=== PATIENT | female | born 1935 | race Caucasian/White ===

== ENCOUNTER 2018-01-22 17:26 | Inpatient (IN) | payer MEDICARE ==
[2018-01-22] MEDS ORDERED: Albuterol/Ipratropium NEB.SOL* Albuterol 2.5 MG/Ipratropium 0.5 MG 3 ML INH ONE (17:41)
[2018-01-22] MEDS ORDERED: Dexamethasone IV* 4 MG/ML 5 ML VIAL (20 MG) IVPB ONE (17:42)
[2018-01-22] MEDS ORDERED: Albuterol/Ipratropium NEB.SOL* Albuterol 2.5 MG/Ipratropium 0.5 MG 3 ML ONE (17:42)
[2018-01-22] MEDS ORDERED: Azithromycin IV(*) 500 MG in NS 0.9% 250 ML* 250 ML IVPB ONE (17:43)
[2018-01-22] MEDS ORDERED: Magnesium Sulfate 2 GM IV* 2 GM/50 ML BAG IVPB ONE (17:44)
[2018-01-22] MEDS ORDERED: NS 0.9% 250 ML* 250 ML ONE (17:47)
[2018-01-22 18:04] LABS: ABS Basophils 0 10^3/ul (0-0.2); ABS Eosinophils 0.9 10^3/ul (0-0.6); ABS Lymphocytes 1.1 10^3/ul (1.0-4.8); ABS Monocytes 0.6 10^3/ul (0-0.8); ABS Neutrophils 3.5 10^3/ul (1.5-7.7); ABS Nucleated RBC 0 10^3/ul; Eosinophil % 14.1 %; Hematocrit 38 % (35-47); Hemoglobin 12.9 g/dl (12.0-16.0); Lymphocyte % 18.4 %; Mean Corpuscular HGB Conc 34 g/dl (31-36); Mean Corpuscular Hemoglobin 32 pg (27-31); Mean Corpuscular Volume 94 fL (80-97); Mean Platelet Volume 9.2 fL (7.4-10.4); Nucleated Red Blood Cells % 0.1; Platelet Count 143 10^3/ul (150-450); Red Blood Count 4.06 10^6/ul (4.00-5.40); Red Cell Distribution Width 12 % (10.5-15); White Blood Count 6.2 10^3/ul (3.5-10.8)
[2018-01-22 18:12] LABS: INR 0.96 (0.77-1.02)
[2018-01-22 18:21] LABS: EGFR Non-African American 42.7 (>60)
[2018-01-22] MEDS ORDERED: NS 0.9% 1000 ML* 1,000 ML IV ONE (18:22)
[2018-01-22] MEDS ORDERED: Azithromycin IV* 500 MG ADVAN VIAL/BAG IVPB ONE (19:22)
[2018-01-22] MEDS ORDERED: Albuterol 2.5 MG/3 ML NEB.SOL* (0.083%) INH PRN (19:48)
[2018-01-22] MEDS ORDERED: Dextrose 50% Syringe 50 ML* 25 GM/50 ML SYRINGE IV PUSH PRN (19:52)
[2018-01-22] MEDS ORDERED: hydrALAZINE IV* 20 MG/ML VIAL IV SLOW PU PRN (19:53)
--- NOTE | 2018-01-22 20:31 | ED ---
Shortness of Breath - HPI Summary HPI Summary: An 82 y/o female presents to [facility] with a chief complaint of SOB on . She has been using O2 to breathe and also c/o a non-productive cough. She denies fevers, CP or a Hx of CHF. She claims to be a non-smoker and has a Hx of back surgeries. 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 Onset/Duration: Sudden Onset, Lasting Hours, Still Present Current Severity: Severe Dyspnea At: Rest Aggrevating Factors: Nothing Alleviating Factors: Nothing Associated Signs & Symptoms: Cough (Nonproductive) - Allergy/Home Medications Allergies/Adverse Reactions: Allergies Allergy/AdvReac Type Severity Reaction Status Date / Time codeine Allergy Unknown Verified 01/22/18 19:35 Reaction Details Home Medications: Home Medications Albuterol HFA INHALER* [Ventolin HFA Inhaler*] 2 puff INH Q4H PRN 01/22/18 [ History Confirmed 01/22/18] Albuterol Sulfate 1.25 mg INH QID PRN 01/22/18 [History Confirmed 01/22/18] Levothyroxine TAB* [Synthroid TAB*] 100 mcg PO DAILY 01/22/18 [History Confirmed 01/22/18] LoraTADine TAB(NF) [Claritin 10 MG TAB(NF)] 10 mg PO DAILY 01/22/18 [History Confirmed 01/22/18] Losartan TAB* [Cozaar TAB*] 25 mg PO DAILY 01/22/18 [History Confirmed 01/22/18] glipiZIDE TAB* [Glucotrol TAB*] 10 mg PO BID 01/22/18 [History Confirmed ] metFORMIN* [Glucophage 500 MG TAB *] 500 mg PO BID 01/22/18 [History Confirmed 01/22/18] PMH/Surg Hx/FS Hx/Imm Hx Endocrine/Hematology History: Reports: Hx Diabetes - TYPE 2- ON ORAL MEDICATION FOR, Hx Thyroid Disease - HYPOTHYROIDISM Cardiovascular History: Reports: Hx Hypertension - ON MEDICATION FOR Respiratory History: Reports: Hx Asthma - ROUTINE INHALERS FOR Comment Only: Hx Chronic Obstructive Pulmonary Disease (COPD) - unknown GI History: Reports: Hx Gastroesophageal Reflux Disease - TUMS Musculoskeletal History: Reports: Hx Arthritis - HANDS Sensory History: Reports: Hx Cataracts - BILATERAL, Hx Contacts or Glasses - GLASSES-READING Denies: 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 VAGINAL HYSTERECTOMY, [place]. 1965 LAMINECTOMY, [facility]. TONSILLECTOMY. TUBAL LIGATION. RIGHT BOTTOM BACK TOOTH EXTRACTION, OFFICE. 05/2013-CATARACT BILATERAL Hx Anesthesia Reactions: No Infectious Disease History: No Infectious Disease History: Denies: Traveled Outside the [place] in Last 30 Days - Family History Known Family History: Negative: Blood Disorder - Social History Alcohol Use: None Substance Use Type: Reports: None Smoking Status (MU): Never Smoked Tobacco Review of Systems Negative: Fever Negative: Chest Pain Positive: Shortness Of Breath, Cough All Other Systems Reviewed And Are Negative: Yes Physical Exam - Summary Physical Exam Summary: GENERAL: Patient is a well-developed and nourished F, Increased work of breathing speaking in broken phrases HEAD AND FACE: Normocephalic EYES: PERRLA, EOMI x 2. EARS: Hearing grossly intact. MOUTH: Oropharynx within normal limits. NECK: Supple, trachea is midline, no adenopathy, no JVD, no carotid bruit. CHEST: Symmetric, no tenderness at palpation LUNGS: Increased work of breathing, wheezing thoughout and retraction CVS: Regular rate and rhythm, S1 and S2 present, no murmurs or gallops appreciated. ABDOMEN: Soft, non-tender. Bowel sounds are normal. No abdominal abnormal pulsations. EXTREMITIES: Full ROM in all major joints, no edema, no cyanosis or clubbing. NEURO: Alert and oriented x 3. No acute neurological deficits. Speech is normal and follows commands. SKIN: Dry and warm Triage Information Reviewed: Yes Vital Signs On Initial Exam: Initial Vitals Temp Pulse Resp BP Pulse Ox 97.9 F 110 24 174/118 94 01/22/18 17:34 01/22/18 17:34 01/22/18 17:34 01/22/18 17:34 01/22/18 17:34 Vital Signs Reviewed: Yes Diagnostics - Vital Signs Vital Signs Temp Pulse Resp BP Pulse Ox 01/22/18 20:09 98.4 F 103 24 142/88 98 01/22/18 20:00 100 25 99 01/22/18 19:42 102 25 142/88 100 01/22/18 19:12 83 17 159/71 99 01/22/18 19:00 85 19 100 01/22/18 18:42 87 28 160/92 99 01/22/18 18:12 105 38 195/98 98 01/22/18 18:00 96 30 100 01/22/18 17:46 97 24 100 01/22/18 17:42 97 25 176/144 100 01/22/18 17:34 97.9 F 110 24 174/118 94 - Laboratory Lab Results: Lab Results 01/22/18 01/22/18 01/22/18 Range/Units 17:52 17:52 17:52 WBC 6.2 (3.5-10.8) 10^3/ul RBC 4.06 (4.00-5.40) 10^6/ul Hgb 12.9 (12.0-16.0) g/dl Hct 38 (35-47) % MCV 94 (80-97) fL MCH 32 H (27-31) pg MCHC 34 (31-36) g/dl RDW 12 (10.5-15) % Plt Count 143 L (150-450) 10^3/ul MPV 9.2 (7.4-10.4) fL Neut % (Auto) 56.8 % Lymph % (Auto) 18.4 % Garland % (Auto) 10.3 % Eos % (Auto) 14.1 % Baso % (Auto) 0.4 % Absolute Neuts (auto) 3.5 (1.5-7.7) 10^3/ul Absolute Lymphs (auto) 1.1 (1.0-4.8) 10^3/ul Absolute Monos (auto) 0.6 (0-0.8) 10^3/ul Absolute Eos (auto) 0.9 H (0-0.6) 10^3/ul Absolute Basos (auto) 0 (0-0.2) 10^3/ul Absolute Nucleated RBC 0 10^3/ul Nucleated RBC % 0.1 INR (Anticoag Therapy) 0.96 (0.77-1.02) APTT 34.0 (26.0-36.3) seconds D-Dimer, Quantitative Pending Patient Temperature ABG pH (7.35-7.45) ABG pH (Temp Correct) ABG pCO2 (35-45) mmHg ABG pCO2 (Temp Corrct ABG pO2 (80-100) mmHg ABG pO2 (Temp Correct ABG HCO3 (19-31) mmol/L ABG O2 Saturation (95-98) % ABG Base Excess (-2.0-2.0) Respiration Rate O2 Delivery Device Ventilator Type Vent Mode FiO2 Inspiratory Time PEEP Pressure Support Pressure Control EPAP IPAP BiPAP Sodium 135 (135-145) mmol/L Potassium 4.5 (3.5-5.0) mmol/L Chloride 103 (101-111) mmol/L Carbon Dioxide 24 (22-32) mmol/L Anion Gap 8 (2-11) mmol/L BUN 22 (6-24) mg/dL Creatinine 1.21 H (0.51-0.95) mg/dL Est GFR ( Amer) 51.7 (>60) Est GFR (Non-Af Amer) 42.7 (>60) BUN/Creatinine Ratio 18.2 (8-20) Glucose 197 H (70-100) mg/dL Lactic Acid (0.5-2.0) mmol/L Calcium 9.3 (8.6-10.3) mg/dL Magnesium 1.6 L (1.9-2.7) mg/dL Total Bilirubin 0.60 (0.2-1.0) mg/dL AST 29 (13-39) U/L ALT 19 (7-52) U/L Alkaline Phosphatase 118 H (34-104) U/L Troponin I 0.02 (<0.04) ng/mL B-Natriuretic Peptide (<=100) pg/mL Total Protein 6.6 (6.4-8.9) g/dL Albumin 3.7 (3.2-5.2) g/dL Globulin 2.9 (2-4) g/dL Albumin/Globulin Ratio 1.3 (1-3) Influenza A (Rapid) (Negative) Influenza B (Rapid) (Negative) 01/22/18 01/22/18 01/22/18 Range/Units 17:52 17:52 18:00 WBC (3.5-10.8) 10^3/ul RBC (4.00-5.40) 10^6/ul Hgb (12.0-16.0) g/dl Hct (35-47) % MCV (80-97) fL MCH (27-31) pg MCHC (31-36) g/dl RDW (10.5-15) % Plt Count (150-450) 10^3/ul MPV (7.4-10.4) fL Neut % (Auto) % Lymph % (Auto) % Garland % (Auto) % Eos % (Auto) % Baso % (Auto) % Absolute Neuts (auto) (1.5-7.7) 10^3/ul Absolute Lymphs (auto) (1.0-4.8) 10^3/ul Absolute Monos (auto) (0-0.8) 10^3/ul Absolute Eos (auto) (0-0.6) 10^3/ul Absolute Basos (auto) (0-0.2) 10^3/ul Absolute Nucleated RBC 10^3/ul Nucleated RBC % INR (Anticoag Therapy) (0.77-1.02) APTT (26.0-36.3) seconds D-Dimer, Quantitative Patient Temperature Not Reportable ABG pH 7.36 (7.35-7.45) ABG pH (Temp Correct) Not Reportable ABG pCO2 39 (35-45) mmHg ABG pCO2 (Temp Corrct Not Reportable ABG pO2 175 H (80-100) mmHg ABG pO2 (Temp Correct Not Reportable ABG HCO3 22.4 (19-31) mmol/L ABG O2 Saturation 99.8 H (95-98) % ABG Base Excess -3.2 L (-2.0-2.0) Respiration Rate Not Reportable O2 Delivery Device 6l nebulizer Ventilator Type Not Reportable Vent Mode Not Reportable FiO2 Not Reportable Inspiratory Time Not Reportable PEEP Not Reportable Pressure Support Not Reportable Pressure Control Not Reportable EPAP Not Reportable IPAP Not Reportable BiPAP Not Reportable Sodium (135-145) mmol/L Potassium (3.5-5.0) mmol/L Chloride (101-111) mmol/L Carbon Dioxide (22-32) mmol/L Anion Gap (2-11) mmol/L BUN (6-24) mg/dL Creatinine (0.51-0.95) mg/dL Est GFR ( Amer) (>60) Est GFR (Non-Af Amer) (>60) BUN/Creatinine Ratio (8-20) Glucose (70-100) mg/dL Lactic Acid 2.4 H* (0.5-2.0) mmol/L Calcium (8.6-10.3) mg/dL Magnesium (1.9-2.7) mg/dL Total Bilirubin (0.2-1.0) mg/dL AST (13-39) U/L ALT (7-52) U/L Alkaline Phosphatase (34-104) U/L Troponin I (<0.04) ng/mL B-Natriuretic Peptide 63 (<=100) pg/mL Total Protein (6.4-8.9) g/dL Albumin (3.2-5.2) g/dL Globulin (2-4) g/dL Albumin/Globulin Ratio (1-3) Influenza A (Rapid) (Negative) Influenza B (Rapid) (Negative) 01/22/18 Range/Units 18:27 WBC (3.5-10.8) 10^3/ul RBC (4.00-5.40) 10^6/ul Hgb (12.0-16.0) g/dl Hct (35-47) % MCV (80-97) fL MCH (27-31) pg MCHC (31-36) g/dl RDW (10.5-15) % Plt Count (150-450) 10^3/ul MPV (7.4-10.4) fL Neut % (Auto) % Lymph % (Auto) % Garland % (Auto) % Eos % (Auto) % Baso % (Auto) % Absolute Neuts (auto) (1.5-7.7) 10^3/ul Absolute Lymphs (auto) (1.0-4.8) 10^3/ul Absolute Monos (auto) (0-0.8) 10^3/ul Absolute Eos (auto) (0-0.6) 10^3/ul Absolute Basos (auto) (0-0.2) 10^3/ul Absolute Nucleated RBC 10^3/ul Nucleated RBC % INR (Anticoag Therapy) (0.77-1.02) APTT (26.0-36.3) seconds D-Dimer, Quantitative Patient Temperature ABG pH (7.35-7.45) ABG pH (Temp Correct) ABG pCO2 (35-45) mmHg ABG pCO2 (Temp Corrct ABG pO2 (80-100) mmHg ABG pO2 (Temp Correct ABG HCO3 (19-31) mmol/L ABG O2 Saturation (95-98) % ABG Base Excess (-2.0-2.0) Respiration Rate O2 Delivery Device Ventilator Type Vent Mode FiO2 Inspiratory Time PEEP Pressure Support Pressure Control EPAP IPAP BiPAP Sodium (135-145) mmol/L Potassium (3.5-5.0) mmol/L Chloride (101-111) mmol/L Carbon Dioxide (22-32) mmol/L Anion Gap (2-11) mmol/L BUN (6-24) mg/dL Creatinine (0.51-0.95) mg/dL Est GFR ( Amer) (>60) Est GFR (Non-Af Amer) (>60) BUN/Creatinine Ratio (8-20) Glucose (70-100) mg/dL Lactic Acid (0.5-2.0) mmol/L Calcium (8.6-10.3) mg/dL Magnesium (1.9-2.7) mg/dL Total Bilirubin (0.2-1.0) mg/dL AST (13-39) U/L ALT (7-52) U/L Alkaline Phosphatase (34-104) U/L Troponin I (<0.04) ng/mL B-Natriuretic Peptide (<=100) pg/mL Total Protein (6.4-8.9) g/dL Albumin (3.2-5.2) g/dL Globulin (2-4) g/dL Albumin/Globulin Ratio (1-3) Influenza A (Rapid) Negative (Negative) Influenza B (Rapid) Negative (Negative) Result Diagrams: 01/23/18 06:04 01/23/18 06:04 Lab Statement: Any lab studies that have been ordered have been reviewed, and results considered in the medical decision making process. - Radiology CXR Radiology Interpretation Completed By: ED Physician Summary of Radiographic Findings: COPD. Pending official radiology report. - EKG 19:02 Cardiac Rate: NL - 99 bpm EKG Rhythm: Sinus Rhythm Summary of EKG Findings: multiple PVCs with IVCD and LAD Course/Dx - Course Course Of Treatment: An 82 y/o female presents to [facility] with a chief complaint of SOB on . Workup is remarkable with increased work of breathing, wheezing thoughout lungs. CXR shows COPD. EKG shows NSR at 99 bpm. Lab results were done. Lactic acid was remarkable at 2.4. Patient given breathing treatments , decadron, MgSO4 and was started on BiPAP but could not tolerate and so wswitch to Vapotherm.The patient will be admitted to Dr. Durand, most likely ICU. Dx: COPD exacerbation. I discussed results with patient. The patient agrees with this plan. - Diagnoses Provider Diagnoses: COPD exacerbation - Physician Notifications Discussed Care of Patient With: Sarah Durand Time Discussed With Above Provider: 19:15 Instructed by Provider To: Admit As Inpatient - Critical Care Time Critical Care Time: 30-74 min - 30 mins Discharge - Sign-Out/Discharge Documenting (check all that apply): Patient Departure - admit - Discharge Plan Condition: Fair Disposition: ADMITTED TO [facility] - Billing Disposition and Condition Condition: FAIR Disposition: Admitted to [facility] - Attestation Statements Document Initiated by Scribe: Yes Documenting Scribe: Robert Roman Provider For Whom Luxibe is Documenting (Include Credential): Reinaldo Lopez MD Scribe Attestation: I, Robert Roman, scribed for Reinaldo Lopez MD on 01/24/18 at 0235. Scribe Documentation Reviewed: Yes Provider Attestation: The documentation as recorded by the Robert vallecillo accurately reflects the service I personally performed and the decisions made by me, Lindsey Lopez MD Status of Scribe Document: Viewed
[2018-01-22] MEDS ORDERED: cefTRIAXone(*) 1 GM in NS 0.9% 50 ML* 50 ML IVPB SCH (21:30)
[2018-01-22] MEDS: Insulin GLARGINE(*) 1 UNITS UNIT SUBCUT SCH (21:45)
[2018-01-22] MEDS: Enoxaparin(*) 40 MG/0.4 ML SYR SUBCUT SCH (21:46)
[2018-01-22] MEDS: Insulin LISPRO* 1 UNITS UNIT SUBCUT SCH (21:46)
[2018-01-22] MEDS: Albuterol/Ipratropium NEB.SOL* Albuterol 2.5 MG/Ipratropium 0.5 MG 3 ML INH SCH (23:34)
[2018-01-23] MEDS: Albuterol/Ipratropium NEB.SOL* Albuterol 2.5 MG/Ipratropium 0.5 MG 3 ML INH SCH ×2 (02:50→07:12)
[2018-01-23] MEDS: methylPREDNISolone SOD 40 MG* 1 ML VIAL IV SCH ×3 (03:17→18:09)
[2018-01-23] MEDS ORDERED: Ondansetron INJ* 2 MG/ML VIAL IV PRN (05:48)
[2018-01-23 06:23] LABS: Hematocrit 35 % (35-47); Hemoglobin 11.9 g/dl (12.0-16.0); Mean Corpuscular HGB Conc 34 g/dl (31-36); Mean Corpuscular Hemoglobin 32 pg (27-31); Mean Corpuscular Volume 94 fL (80-97); Mean Platelet Volume 9.3 fL (7.4-10.4); Platelet Count 118 10^3/ul (150-450); Red Blood Count 3.73 10^6/ul (4.00-5.40); Red Cell Distribution Width 12 % (10.5-15); White Blood Count 2.9 10^3/ul (3.5-10.8)
[2018-01-23] MEDS: Levothyroxine TAB* 100 MCG TAB PO SCH (06:32)
[2018-01-23] MEDS ORDERED: NS 0.9% 1000 ML* 1,000 ML IV ONE (06:53)
--- NOTE | 2018-01-23 07:15 | HP ---
HISTORY AND PHYSICAL: DATE OF ADMISSION: 01/22/18 PRIMARY CARE PROVIDER: Dr. Anderson CHIEF COMPLAINT: Shortness of breath. HISTORY OF PRESENT ILLNESS: Ms. Price is an 82-year-old female who states that over the last 2 to 3 months, she has had worsening shortness of breath. She then states over the last couple weeks, she has had dramatic worsening of her shortness of breath. She states that she feels severely short of b reath and exhausted with any minimal exertion. The patient was going to try to get in to see her [facility] provider tomorrow; however, did not feel that she could make it and therefore presented to the emergency room for evaluation. Patient in the ER, was trialed on BiPAP which she did not tolerate. She is dyspneic and unable to co mplete full sentences despite being on 30 L of Vapotherm. Patient denies any significant cough or spu lucila production at this time; however, states that a few weeks ago, she did have a respiratory infecti on where she was coughing up sputum. She has had no recent fevers or chills. She has been using her albuterol nebulizers 3 times a day and albuterol inhaler at bedtime. Despite this, she continued to have progression of symptoms. In fact, she states the last time she used her nebs and inhaler, they did not help as much as they had previously. She denies any sick contacts. In general, the patient is a poor historian and this was all that was able to be obtained from her. PAST MEDICAL HISTORY: 1. COPD, despite no personal smoking history. 2. Asthma. 3. Type 2 diabetes. 4. Hypertension. 5. Hypothyroidism. PAST SURGICAL HISTORY: 1. Right carpal tunnel release. 2. Bilateral cataract extractions. 3. Tonsillectomy. 4. Laminectomy. 5. . 6. Hysterectomy. MEDICATIONS: 1. Albuterol 2 puffs inhaled q.4 hours p.r.n. shortness of breath. 2. Albuterol 1 neb inhaled 4 times a day p.r.n. shortness of breath. 3. Glipizide 10 mg p.o. b.i.d. 4. Loratadine 10 mg p.o. daily. 5. Metformin 500 mg p.o. b.i.d. 6. Levothyroxine 100 mcg p.o. daily. 7. Losartan 25 mg p.o. daily. ALLERGIES: CODEINE. FAMILY HISTORY: Mom in the 90s of old age, dad at the age of 67, he had COPD and diabetes. SOCIAL HISTORY: Patient is a lifelong nonsmoker, states she was a nonsmoker her entire life. She den ies any alcohol use. She is a retired nurse. She is . She has one child. She indicates that her son Brandon will be her healthcare proxy. REVIEW OF SYSTEMS: Patient denies any recent fevers or chills. She states her appetite has been poo r recently. She has noticed weight loss over the last 2 to 3 weeks that is unintentional, due to dec reased appetite. She does admit to chest pain with coughing. She thinks that her lower extremities may be slightly swollen. She admits to occasional cough but no significant sputum production. She ad mits to shortness of breath as above. No nausea, vomiting, abdominal pain. She does admit to consti pation. No hematochezia, no hematuria, no dysuria, no focal weakness or sensory losses, no sudden ch anges in vision. No dysphagia, no joint pains or muscle pains out of the ordinary, no rashes, no anx iety or depression. PHYSICAL EXAMINATION GENERAL: The patient is a well-developed, elderly female, sitting straight upright on the stretcher, dyspneic and in moderate respiratory distress. VITAL SIGNS: Blood pressure 159/71, pulse 102, respirations 17, temp 97.9, O2 sat 99% on 30 L of 50% FiO2 via Vapotherm. HEENT: Pupils are equal and round. There is evidence of prior cataract extraction. Extraocular mus cles intact. Oropharynx is clear. Oral mucosa is moist. NECK: There is no submandibular, cervical or supraclavicular adenopathy. Thyroid is not enlarged. N o thyroid nodules are noted. PULMONARY: Breath sounds are diminished in all lung bob. There is diffuse wheezing heard through out. As above, patient is quite dyspneic and unable to complete a full sentence without pausing betw een words. CARDIAC: Normal S1, S2. Heart rate is tachycardic but regular. There is minimal bilateral lower ex tremity pitting edema. ABDOMEN: Bowel sounds present. Abdomen is soft, nontender, nondistended. MUSCULOSKELETAL: There is no cyanosis or clubbing of the digits. There is full active range of mariah on of all 4 extremities. NEUROLOGIC: Cranial nerves II through XII are grossly intact. Sensation is intact to light touch th roughout. Strength is 5/5 and symmetric in both upper and lower extremities bilaterally. SKIN: Warm and dry. There are no rashes. PSYCH: The patient is alert. She is oriented x3. Affect appears appropriate. DIAGNOSTIC STUDIES/LAB DATA: WBC 6.2, hemoglobin 12.9, hematocrit 38, platelets 143, INR 0.96, sodi um 135, potassium 4.5, chloride 103, CO2 24, BUN 22, creatinine 1.21, glucose 197, lactic acid 2.4, c alcium 9.3, magnesium 1.6, bilirubin 0.6, AST 29, ALT 19, alkaline phosphatase 118, troponin 0.02, BN P 63, albumin 3.7, influenza A and B negative. ABG 7.36/39/175. EKG reveals sinus tachycardia with frequent PVC, no acute ST-T wave abnormalities. Chest x-ray to my interpretation reveals a possible very small infiltrate at the right base. ASSESSMENT AND PLAN: Ms. Price is an 82-year-old female who has a history of COPD, diabetes, hypert ension, hypothyroidism who presents to the emergency room with complaints of several months worth of shortness of breath which acutely worsened over the last couple weeks but even more so on the day of admission, now is being admitted for a probable COPD exacerbation with moderate respiratory distress. 1. Chronic obstructive pulmonary disease exacerbation with moderate respiratory distress. At this p oint, the patient is feeling somewhat improved on Vapotherm. It has helped her work of breathing slig htly. She was unable to tolerate BiPAP. The patient does have acceptable oxygen saturations and has no evidence acute hypoxic respiratory failure at this point. I questioned why she may have decompens ated today. The patient received azithromycin in the emergency room. I will add ceftriaxone to this and continue both of these on a daily basis. Patient will have standing DuoNeb treatments every 4 h ours and p.r.n. albuterol every 2 hours. She will also be started on Solu-Medrol 40 mg IV q.8 hours. The patient does accept intubation if necessary. My hope is that with a little more time, her resp iratory status will stabilize and she will be less dyspneic at rest. The patient has never been forma sen diagnosed with COPD; however she states her primary gave her this diagnosis. Ultimately when she recovers from this illness, PFT testing would be useful to determine if she truly does have COPD. P atient due to her marked worsening of shortness of breath today despite having progressive shortness of breath over the last 1 week, could potentially have a PE, she does not have any significant lower extremity swelling but there is trace swelling. I will add a [facility] If this is elevated, we will send her for a CTA of the chest. 2. Lactic acidosis. I suspect the lactic acidosis is secondary to the work of breathing. A followu p lactic acid level will be obtained at 2100. She did receive IV fluids in the emergency room. I am not going to continue these at this time as she does have slight lower extremity edema. She will be eating and drinking without restriction. 3. Type 2 diabetes. I am going to hold patient's metformin and glipizide for now. I do suspect her sugars will be likely markedly elevated due to the steroid use. I am going to start Lantus 5 units s ubcutaneous at bedtime as well as a lispro sliding scale a.c./h.s. until her oral medications are add ed back. Lantus can be utilized and the dose should be increased as needed. 4. Hypertension. Patient was markedly hypertensive early on in her ER stay. Her blood pressures jimenez ve improved. I have added p.r.n. hydralazine for systolic blood pressures greater than 180. She eb l otherwise continue on her usual dose of losartan. 5. Hypothyroidism. The patient will continue on her usual dose of Synthroid. 6. DVT prophylaxis. According to the Adult Thrombosis Prophylaxis Risk Factor Assessment Guide, the patient has a total risk factor score of 5, making her the highest risk. Lovenox 40 units subcutane ous daily will be utilized as DVT prophylaxis. 3. Code status is full. TIME SPENT: 65 minutes was spent admitting this patient. [id number]/[facility] #: [id number]
[2018-01-23] MEDS ORDERED: Morphine VIAL* 4 MG/ML VIAL (1 ml vial) ONE (08:40)
[2018-01-23] MEDS ORDERED: Acetaminophen TAB* 325 MG PO PRN (08:47)
[2018-01-23] MEDS: Losartan TAB* 25 MG PO SCH (09:03)
[2018-01-23] MEDS: Insulin LISPRO* 1 UNITS UNIT SUBCUT SCH ×4 (09:04→21:17)
[2018-01-23] MEDS: NS 0.9% 1000 ML* 1,000 ML IV SCH ×2 (09:05→18:15)
[2018-01-23] MEDS ORDERED: Morphine VIAL* 4 MG/ML VIAL (1 ml vial) IV PRN (09:15)
[2018-01-23] MEDS ORDERED: Albuterol 2.5 MG/3 ML NEB.SOL* (0.083%) INH SCH (10:00)
[2018-01-23] MEDS ORDERED: Spiriva Inhaler DEVICE* 1 EACH DEVICE SCH (10:00)
[2018-01-23] MEDS ORDERED: Iodixanol* (CONTRAST) 320 MG/ML 100 ML SDV IV ONE (10:51)
--- NOTE | 2018-01-23 10:53 | CONSULT ---
Consult Consult: Consultation Note -- Critical Care Requesting Physician: Dr Sarah Durand Reason for consult: COPD exaccerbation, resp distress Limitations in history/physical: none Date of consult: 01/23/2018 HPI: 82y F w/pmhx of HTN, DM, hypothyroidism, COPD?; comes to ER for increasing shortness of breath. She states she has been short of breath for months now and increasing. She does not remember any viral illness, no fever/chills. She was told by her PMD she has COPD and was started on albuterol MDI and nebs, without improvement now. She has been having chest pain on the left, pleuritic in nature , more on coughing and deep breaths, but sometimes present otherwise. no syncope. no sputum/cough. no LE edema. no dizziness. no abd pain/n/v/diarrhea. denies smoking history. She came to ER for chest pain and shortness of breath. In ER, she was short of breath, trialed on NIV but did not toelrated and started on hiflow oxygen therapy. She was started on tx for bronchospasm with CAP therapy empirically. She is now in ICU, awake/alert. mild resp distress, tachypneia. no acc muscle use. She states full history as above. also with weight loss for weeks, poor appetite+. ROS: negative except for pertinent positives mentioned above. PMHx: HTN, DM, hypothyroidism, COPD? 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 Allergies: Allergies Allergy/AdvReac Type Severity Reaction Status Date / Time codeine Allergy Unknown Verified 01/22/18 19:35 Reaction Details Home Medications: Albuterol HFA INHALER* [Ventolin HFA Inhaler*] 2 puff INH Q4H PRN 01/22/18 [ History Confirmed 01/22/18] Albuterol Sulfate 1.25 mg INH QID PRN 01/22/18 [History Confirmed 01/22/18] Levothyroxine TAB* [Synthroid TAB*] 100 mcg PO DAILY 01/22/18 [History Confirmed 01/22/18] LoraTADine TAB(NF) [Claritin 10 MG TAB(NF)] 10 mg PO DAILY 01/22/18 [History Confirmed 01/22/18] Losartan TAB* [Cozaar TAB*] 25 mg PO DAILY 01/22/18 [History Confirmed 01/22/18] glipiZIDE TAB* [Glucotrol TAB*] 10 mg PO BID 01/22/18 [History Confirmed ] metFORMIN* [Glucophage 500 MG TAB *] 500 mg PO BID 01/22/18 [History Confirmed 01/22/18] Tele: NSR Vitals: Vital Signs Temp 99 F 01/23/18 07:31 Pulse 110 01/23/18 10:01 Resp 28 01/23/18 10:09 BP 167/91 01/23/18 10:00 Pulse Ox 96 01/23/18 10:01 Intake & Output 01/22/18 01/23/18 01/23/18 18:59 06:59 18:59 Intake Total 2571 Output Total 1225 Balance 1346 Weight 61.235 kg 63.1 kg Intake: IV Fluids 1211 NS (0.9%) 911 IVPB 560 NS (0.9%) 310 Oral 800 Output: Urine 1225 O2/Vent: hiflow 30% 30L Infusions: NS 75cc/hr Current Medications: Acetaminophen (Tylenol Tab*) 650 mg PO Q4H PRN PRN Reason: HEADACHE/PAIN Last Admin: 01/23/18 09:03 Dose: 650 mg Albuterol (Ventolin 2.5 Mg/3 Ml Neb.Isidra*) 2.5 mg INH Q4H [facility] Device (Tiotropium Inhaler Device*) 1 each .SEE ORDER .USE w/ SPIRIVA CAPS JOSÉ ANTONIO Dextrose (D50w Syringe 50 Ml*) 12.5 gm IV PUSH .FOR FS < 60 - SS PRN PRN Reason: FS < 60 Enoxaparin Sodium (Lovenox(*)) 40 mg SUBCUT Q24H [facility] [place] Last Admin: 01/22/18 21:46 Dose: 40 mg Hydralazine HCl (Apresoline Iv*) 10 mg IV SLOW PU Q6H PRN PRN Reason: SBP>180 Ceftriaxone Sodium 1 gm/ (Sodium Chloride) 50 mls @ 200 mls/hr IVPB Q24H [facility] [place] Last Admin: 01/22/18 22:56 Dose: 200 mls/hr Azithromycin 500 mg/ Sodium (Chloride) 250 mls @ 250 mls/hr IVPB Q24H [facility] [place] Sodium Chloride (Ns 0.9% 1000 Ml*) 1,000 mls @ 75 mls/hr IV PER RATE [facility] Last Admin: 01/23/18 09:05 Dose: 75 mls/hr Insulin Glargine (Lantus(*)) 5 units SUBCUT Q24H [facility] Last Admin: 01/22/18 21:45 Dose: 5 unit Insulin Human Lispro (Humalog*) 0 units SUBCUT ACHS [facility] [place]; Protocol Last Admin: 01/23/18 09:04 Dose: 4 units Levothyroxine Sodium (Synthroid Tab*) 100 mcg PO DAILY@0600 [facility] [place] Last Admin: 01/23/18 06:32 Dose: 100 mcg Losartan Potassium (Cozaar Tab*) 25 mg PO DAILY [facility] [place] Last Admin: 01/23/18 09:03 Dose: 25 mg Methylprednisolone Sodium Succinate (Solu-Medrol 40 Mg) 40 mg IV Q8H [facility] [place] Last Admin: 01/23/18 10:11 Dose: 40 mg Morphine Sulfate (Morphine Vial*) 2 mg IV Q4H PRN PRN Reason: PAIN - MODERATE Last Admin: 01/23/18 10:09 Dose: 2 mg Ondansetron HCl (Zofran Inj*) 4 mg IV Q6H PRN PRN Reason: NAUSEA Last Admin: 01/23/18 06:32 Dose: 4 mg Tiotropium Cha[place]in (Spiriva Cap.Inh*) 1 cap INH DAILY [facility] Physical Exam: General: awake, alert, mild tachypnea, no diaphoresis Head: normocephalic, atraumatic HEENT: no pallor, no icterus, moist mucous membranes Neck: soft, supple, no jvd, no stridor CVS: tachy borderline, regular, no murmur Resp: bilateral air entry, no rhales, bilateral wheeze+, no rhonchi, no acc muscle use Abdomen: soft, nontender, nondistended, bowel sounds present Ext: pulses+, warm, no edema Skin: intact Neuro: awake, alert, orientedx3, moving all extremities, no gross focal deficit Labs: Laboratory Results - last 24 hr 01/22/18 01/22/18 01/22/18 17:52 17:52 17:52 WBC 6.2 RBC 4.06 Hgb 12.9 Hct 38 MCV 94 MCH 32 H MCHC 34 RDW 12 Plt Count 143 L MPV 9.2 Neut % (Auto) 56.8 Lymph % (Auto) 18.4 [place] % (Auto) 10.3 Eos % (Auto) 14.1 Baso % (Auto) 0.4 Absolute Neuts (auto) 3.5 Absolute Lymphs (auto) 1.1 Absolute Monos (auto) 0.6 Absolute Eos (auto) 0.9 H Absolute Basos (auto) 0 Absolute Nucleated RBC 0 Nucleated RBC % 0.1 INR (Anticoag Therapy) 0.96 APTT 34.0 D-Dimer, Quantitative 263 H Patient Temperature ABG pH ABG pH (Temp Correct) ABG pCO2 ABG pCO2 (Temp Corrct ABG pO2 ABG pO2 (Temp Correct ABG HCO3 ABG O2 Saturation ABG Base Excess Respiration Rate O2 Delivery Device Ventilator Type Vent Mode FiO2 Inspiratory Time PEEP Pressure Support Pressure Control EPAP IPAP BiPAP Sodium 135 Potassium 4.5 Chloride 103 Carbon Dioxide 24 Anion Gap 8 BUN 22 Creatinine 1.21 H Est GFR ( Amer) 51.7 Est GFR (Non-Af Amer) 42.7 BUN/Creatinine Ratio 18.2 Glucose 197 H POC Glucose (mg/dL) Hemoglobin A1c Lactic Acid Calcium 9.3 Magnesium 1.6 L Total Bilirubin 0.60 AST 29 ALT 19 Alkaline Phosphatase 118 H Troponin I 0.02 B-Natriuretic Peptide Total Protein 6.6 Albumin 3.7 Globulin 2.9 Albumin/Globulin Ratio 1.3 Influenza A (Rapid) Influenza B (Rapid) 01/22/18 01/22/18 01/22/18 17:52 17:52 17:52 WBC RBC Hgb Hct MCV MCH MCHC RDW Plt Count MPV Neut % (Auto) Lymph % (Auto) [place] % (Auto) Eos % (Auto) Baso % (Auto) Absolute Neuts (auto) Absolute Lymphs (auto) Absolute Monos (auto) Absolute Eos (auto) Absolute Basos (auto) Absolute Nucleated RBC Nucleated RBC % INR (Anticoag Therapy) APTT D-Dimer, Quantitative Patient Temperature ABG pH ABG pH (Temp Correct) ABG pCO2 ABG pCO2 (Temp Corrct ABG pO2 ABG pO2 (Temp Correct ABG HCO3 ABG O2 Saturation ABG Base Excess Respiration Rate O2 Delivery Device Ventilator Type Vent Mode FiO2 Inspiratory Time PEEP Pressure Support Pressure Control EPAP IPAP BiPAP Sodium Potassium Chloride Carbon Dioxide Anion Gap BUN Creatinine Est GFR ( Amer) Est GFR (Non-Af Amer) BUN/Creatinine Ratio Glucose POC Glucose (mg/dL) Hemoglobin A1c 6.1 H Lactic Acid 2.4 H* Calcium Magnesium Total Bilirubin AST ALT Alkaline Phosphatase Troponin I B-Natriuretic Peptide 63 Total Protein Albumin Globulin Albumin/Globulin Ratio Influenza A (Rapid) Influenza B (Rapid) 01/22/18 01/22/18 01/22/18 18:00 18:27 20:23 WBC RBC Hgb Hct MCV MCH MCHC RDW Plt Count MPV Neut % (Auto) Lymph % (Auto) [place] % (Auto) Eos % (Auto) Baso % (Auto) Absolute Neuts (auto) Absolute Lymphs (auto) Absolute Monos (auto) Absolute Eos (auto) Absolute Basos (auto) Absolute Nucleated RBC Nucleated RBC % INR (Anticoag Therapy) APTT D-Dimer, Quantitative Patient Temperature Not Reportable ABG pH 7.36 ABG pH (Temp Correct) Not Reportable ABG pCO2 39 ABG pCO2 (Temp Corrct Not Reportable ABG pO2 175 H ABG pO2 (Temp Correct Not Reportable ABG HCO3 22.4 ABG O2 Saturation 99.8 H ABG Base Excess -3.2 L Respiration Rate Not Reportable O2 Delivery Device 6l nebulizer Ventilator Type Not Reportable Vent Mode Not Reportable FiO2 Not Reportable Inspiratory Time Not Reportable PEEP Not Reportable Pressure Support Not Reportable Pressure Control Not Reportable EPAP Not Reportable IPAP Not Reportable BiPAP Not Reportable Sodium Potassium Chloride Carbon Dioxide Anion Gap BUN Creatinine Est GFR ( Amer) Est GFR (Non-Af Amer) BUN/Creatinine Ratio Glucose POC Glucose (mg/dL) Hemoglobin A1c Lactic Acid 3.6 H* Calcium Magnesium Total Bilirubin AST ALT Alkaline Phosphatase Troponin I B-Natriuretic Peptide Total Protein Albumin Globulin Albumin/Globulin Ratio Influenza A (Rapid) Negative Influenza B (Rapid) Negative 01/22/18 01/23/18 01/23/18 21:39 06:04 06:04 WBC 2.9 L RBC 3.73 L Hgb 11.9 L Hct 35 MCV 94 MCH 32 H MCHC 34 RDW 12 Plt Count 118 L MPV 9.3 Neut % (Auto) Lymph % (Auto) [place] % (Auto) Eos % (Auto) Baso % (Auto) Absolute Neuts (auto) Absolute Lymphs (auto) Absolute Monos (auto) Absolute Eos (auto) Absolute Basos (auto) Absolute Nucleated RBC Nucleated RBC % INR (Anticoag Therapy) APTT D-Dimer, Quantitative Patient Temperature ABG pH ABG pH (Temp Correct) ABG pCO2 ABG pCO2 (Temp Corrct ABG pO2 ABG pO2 (Temp Correct ABG HCO3 ABG O2 Saturation ABG Base Excess Respiration Rate O2 Delivery Device Ventilator Type Vent Mode FiO2 Inspiratory Time PEEP Pressure Support Pressure Control EPAP IPAP BiPAP Sodium 135 Potassium 4.8 Chloride 107 Carbon Dioxide 17 L Anion Gap 11 BUN 20 Creatinine 1.02 H Est GFR ( Amer) 62.9 Est GFR (Non-Af Amer) 52.0 BUN/Creatinine Ratio 19.6 Glucose 219 H POC Glucose (mg/dL) 238 H Hemoglobin A1c Lactic Acid Calcium 9.1 Magnesium Total Bilirubin AST ALT Alkaline Phosphatase Troponin I 0.01 B-Natriuretic Peptide Total Protein Albumin Globulin Albumin/Globulin Ratio Influenza A (Rapid) Influenza B (Rapid) 01/23/18 01/23/18 01/23/18 06:04 07:53 09:09 WBC RBC Hgb Hct MCV MCH MCHC RDW Plt Count MPV Neut % (Auto) Lymph % (Auto) [place] % (Auto) Eos % (Auto) Baso % (Auto) Absolute Neuts (auto) Absolute Lymphs (auto) Absolute Monos (auto) Absolute Eos (auto) Absolute Basos (auto) Absolute Nucleated RBC Nucleated RBC % INR (Anticoag Therapy) APTT D-Dimer, Quantitative Patient Temperature ABG pH ABG pH (Temp Correct) ABG pCO2 ABG pCO2 (Temp Corrct ABG pO2 ABG pO2 (Temp Correct ABG HCO3 ABG O2 Saturation ABG Base Excess Respiration Rate O2 Delivery Device Ventilator Type Vent Mode FiO2 Inspiratory Time PEEP Pressure Support Pressure Control EPAP IPAP BiPAP Sodium Potassium Chloride Carbon Dioxide Anion Gap BUN Creatinine Est GFR ( Amer) Est GFR (Non-Af Amer) BUN/Creatinine Ratio Glucose POC Glucose (mg/dL) 206 H Hemoglobin A1c Lactic Acid 4.4 H* 2.8 H* Calcium Magnesium Total Bilirubin AST ALT Alkaline Phosphatase Troponin I B-Natriuretic Peptide Total Protein Albumin Globulin Albumin/Globulin Ratio Influenza A (Rapid) Influenza B (Rapid) Imaging: cxr 01/22 - no infiltrate/effusion/ptx. no cardiomegaly Assessment: 82y F w/pmhx of HTN, DM, hypothyroidism, COPD?; comes to ER for increasing shortness of breath. She states she has been short of breath for months now and increasing. She does not remember any viral illness, no fever/ chills. She was told by her PMD she has COPD and was started on albuterol MDI and nebs, without improvement now. She has been having chest pain on the left, pleuritic in nature, more on coughing and deep breaths, but sometimes present otherwise. -Suspected acute COPD exaccerbation -Lactic acidosis, likley from adrenergic agent use + resp distress HTN DM Plan: Neuro- awake/alert. delirium prec CVS- mild tachy, sinus. trop neg. EKG 12/1 AM with some anterior inverted Twaves , IVCD with some RBBB pattern noted. chest pain seems more pleuritic. obtain TTE. start ASA 81mg daily. add cardizem 30mg po q6h for hypertension/tachycardia , hold BB given active wheezing. will also r/o PE with CTA. IVF NS 75cc/hr. Resp- on hiflow, can prob wean to NC. no sig hypoxia. Wheezing+. Cont bronchodilators q4h prn. LA elevation may be from B agonist use, decreasing. cont solumedrol 40mg iv q8h. add spiriva inh daily. Need to obtain PFTs outpatient. unclear if copd, no sig history of smoking or exposure to chemicals. obtain CTA chest to r/o PE and eval lung parenchyma. ID- afebrile. wbc 6.2->2.9. CXR without infiltrate. LA elevated but nontoxic. likely metabolic origin. On empiric CAP coverage ceftriaxone/azithromycin (day#2 ). sputum culture if able. GI- diabetic/cardiac diet. GI proph. Renal- Cr okay. K okay. mild acidosis, LA was elevated. IVF hydration. Heme- hg stable. plt stable. drop in wbc, now with leukopenia. DVT proph enoxaparin/scd Endo- fignerstick achs. Lantus 5u qhs, lispro achs. Musculsk- pressure ulcer prophylaxis. Bedrest. Wounds- none Nutrition- diabetic/cardiac diet DVT prophylaxis: lovenox/scd GI prophylaxis: h2n Central Line: no Arterial Line: no Reynoso Cathetor: no Disposition: ICU Code Status: full code Total Critical Care time is 40 minutes, excluding procedures/teaching Castillo Overton MD [employer] Guidance Counselor (Electronically Signed)
[2018-01-23] MEDS: Tiotropium CAP.INH* CAP.INH/18 MCG (USE ORDER SET !) INH SCH (11:23)
[2018-01-23] MEDS: Albuterol 2.5 MG/3 ML NEB.SOL* (0.083%) INH SCH ×4 (11:23→22:49)
[2018-01-23] MEDS: Famotidine TAB* 20 MG PO SCH (12:49)
[2018-01-23] MEDS: Aspirin EC TAB* 81 MG TAB.EC PO SCH (12:49)
[2018-01-23] MEDS: Diltiazem TAB* 30 MG PO SCH ×3 (12:49→23:23)
[2018-01-23] MEDS ORDERED: oxyCODONE/Acetamin 5/325 MG* TAB PO PRN (14:43)
[2018-01-23] MEDS ORDERED: Azithromycin IV(*) 500 MG in NS 0.9% 250 ML* 250 ML IVPB SCH (18:00)
[2018-01-23] MEDS: Insulin GLARGINE(*) 1 UNITS UNIT SUBCUT SCH (21:16)
[2018-01-23] MEDS: Enoxaparin(*) 40 MG/0.4 ML SYR SUBCUT SCH (21:16)
[2018-01-24] MEDS: methylPREDNISolone SOD 40 MG* 1 ML VIAL IV SCH ×3 (02:17→18:09)
[2018-01-24] MEDS: Albuterol 2.5 MG/3 ML NEB.SOL* (0.083%) INH SCH ×5 (03:29→20:25)
[2018-01-24] MEDS: Diltiazem TAB* 30 MG PO SCH ×2 (05:23→11:59)
[2018-01-24] MEDS: Levothyroxine TAB* 100 MCG TAB PO SCH (05:23)
[2018-01-24 05:48] LABS: Hematocrit 35 % (35-47); Hemoglobin 11.3 g/dl (12.0-16.0); Mean Corpuscular HGB Conc 33 g/dl (31-36); Mean Corpuscular Hemoglobin 31 pg (27-31); Mean Corpuscular Volume 96 fL (80-97); Mean Platelet Volume 9.4 fL (7.4-10.4); Platelet Count 163 10^3/ul (150-450); Red Blood Count 3.63 10^6/ul (4.00-5.40); Red Cell Distribution Width 12 % (10.5-15); White Blood Count 12.5 10^3/ul (3.5-10.8)
[2018-01-24 06:05] LABS: EGFR Non-African American 46.2 (>60)
[2018-01-24] MEDS: Insulin LISPRO* 1 UNITS UNIT SUBCUT SCH ×4 (07:43→22:06)
[2018-01-24] MEDS: Aspirin EC TAB* 81 MG TAB.EC PO SCH (07:43)
[2018-01-24] MEDS: Famotidine TAB* 20 MG PO SCH (07:43)
[2018-01-24] MEDS: Losartan TAB* 25 MG PO SCH (07:43)
[2018-01-24] MEDS: Tiotropium CAP.INH* CAP.INH/18 MCG (USE ORDER SET !) INH SCH (09:19)
--- NOTE | 2018-01-24 10:27 | PN ---
Progress Note - Progress Note Date of Service: 01/24/18 Note: Consultation Note -- Critical Care 24 hour events: -awake, alert, in chair, no resp distress. chest pain resolved. cough+, sputum+ -tmax 100.1, on NC 10L now Tele: NSR Vitals: Vital Signs Temp 99.1 F 01/24/18 08:00 Pulse 89 01/24/18 10:01 Resp 23 01/24/18 10:01 BP 88/40 01/24/18 10:01 Pulse Ox 100 01/24/18 10:01 Intake & Output 01/23/18 01/24/18 01/24/18 18:59 06:59 18:59 Intake Total 1670 1132 581 Output Total 870 1700 Balance 800 -568 581 Weight 67.4 kg Intake: IV Fluids 1470 1132 101 NS (0.9%) 1470 1132 101 Oral 200 480 Output: Urine 400 1350 Reynoso 470 350 Other: # Voids 1 O2/Vent: NC 10L Infusions: NS 75cc/hr Current Medications: Acetaminophen (Tylenol Tab*) 650 mg PO Q4H PRN PRN Reason: HEADACHE/PAIN Last Admin: 01/23/18 09:03 Dose: 650 mg Albuterol (Ventolin 2.5 Mg/3 Ml Neb.Isidra*) 2.5 mg INH Q4H [facility] Last Admin: 01/24/18 09:18 Dose: 2.5 mg Aspirin (Aspirin Ec Tab*) 81 mg PO DAILY [facility] Last Admin: 01/24/18 07:43 Dose: 81 mg Device (Tiotropium Inhaler Device*) 1 each .SEE ORDER .USE w/ SPIRIVA CAPS [facility] Dextrose (D50w Syringe 50 Ml*) 12.5 gm IV PUSH .FOR FS < 60 - SS PRN PRN Reason: FS < 60 Diltiazem HCl (Cardizem Tab*) 30 mg PO Q6HR [facility] Last Admin: 01/24/18 05:23 Dose: 30 mg Enoxaparin Sodium (Lovenox(*)) 40 mg SUBCUT Q24H [facility] Last Admin: 01/23/18 21:16 Dose: 40 mg Famotidine (Pepcid Tab*) 20 mg PO DAILY [facility] Last Admin: 01/24/18 07:43 Dose: 20 mg Hydralazine HCl (Apresoline Iv*) 10 mg IV SLOW PU Q6H PRN PRN Reason: SBP>180 Sodium Chloride (Ns 0.9% 1000 Ml*) 1,000 mls @ 75 mls/hr IV PER RATE [facility] Last Admin: 01/23/18 18:15 Dose: 75 mls/hr Insulin Glargine (Lantus(*)) 5 units SUBCUT Q24H [facility] Last Admin: 01/23/18 21:16 Dose: 5 unit Insulin Human Lispro (Humalog*) 0 units SUBCUT ACHS [facility]; Protocol Last Admin: 01/24/18 07:43 Dose: 4 unit Levothyroxine Sodium (Synthroid Tab*) 100 mcg PO DAILY@0600 [facility] Last Admin: 01/24/18 05:23 Dose: 100 mcg Losartan Potassium (Cozaar Tab*) 25 mg PO DAILY [facility] Last Admin: 01/24/18 07:43 Dose: 25 mg Methylprednisolone Sodium Succinate (Solu-Medrol 40 Mg) 40 mg IV Q8H [facility] Last Admin: 01/24/18 09:20 Dose: 40 mg Morphine Sulfate (Morphine Vial*) 2 mg IV Q4H PRN PRN Reason: PAIN - MODERATE Last Admin: 01/23/18 10:09 Dose: 2 mg Ondansetron HCl (Zofran Inj*) 4 mg IV Q6H PRN PRN Reason: NAUSEA Last Admin: 01/23/18 06:32 Dose: 4 mg Oxycodone/Acetaminophen (Percocet 5/325 Tab*) 1 tab PO Q6H PRN PRN Reason: PAIN Tiotropium [place] (Spiriva Cap.Inh*) 1 cap INH DAILY [facility] Last Admin: 01/24/18 09:19 Dose: 1 cap Physical Exam: General: awake, alert, mild tachypnea, no diaphoresis Head: normocephalic, atraumatic HEENT: no pallor, no icterus, moist mucous membranes Neck: soft, supple, no jvd, no stridor CVS: tachy borderline, regular, no murmur Resp: bilateral air entry, no rhales, more coarse breath sounds and more rhonchi with some wheeze, improved from yesterday, no acc muscle use Abdomen: soft, nontender, nondistended, bowel sounds present Ext: pulses+, warm, no edema Skin: intact Neuro: awake, alert, orientedx3, moving all extremities, no gross focal deficit Labs: Laboratory Results - last 24 hr 01/23/18 01/23/18 01/23/18 12:04 18:04 21:07 WBC RBC Hgb Hct MCV MCH MCHC RDW Plt Count MPV Sodium Potassium Chloride Carbon Dioxide Anion Gap BUN Creatinine Est GFR ( Amer) Est GFR (Non-Af Amer) BUN/Creatinine Ratio Glucose POC Glucose (mg/dL) 137 H 281 H 212 H Calcium Phosphorus Magnesium Triglycerides Cholesterol LDL Cholesterol HDL Cholesterol 01/24/18 01/24/18 01/24/18 05:30 05:30 07:21 WBC 12.5 H RBC 3.63 L Hgb 11.3 L Hct 35 MCV 96 MCH 31 MCHC 33 RDW 12 Plt Count 163 MPV 9.4 Sodium 136 Potassium 4.6 Chloride 110 Carbon Dioxide 19 L Anion Gap 7 BUN 25 H Creatinine 1.13 H Est GFR ( Amer) 55.9 Est GFR (Non-Af Amer) 46.2 BUN/Creatinine Ratio 22.1 H Glucose 277 H POC Glucose (mg/dL) 225 H Calcium 8.7 Phosphorus 3.6 Magnesium 2.0 Triglycerides 117 Cholesterol 148 LDL Cholesterol 81 HDL Cholesterol 43.4 Imaging: cxr 01/22 - no infiltrate/effusion/ptx. no cardiomegaly Assessment: 82y F w/pmhx of HTN, DM, hypothyroidism, COPD?; comes to ER for increasing shortness of breath. She states she has been short of breath for months now and increasing. She does not remember any viral illness, no fever/ chills. She was told by her PMD she has COPD and was started on albuterol MDI and nebs, without improvement now. She has been having chest pain on the left, pleuritic in nature, more on coughing and deep breaths, but sometimes present otherwise. - acute COPD exaccerbation -Lactic acidosis resolved HTN DM Plan: Neuro- awake/alert. delirium prec CVS- tachycardia resolved. BP stable 90s. on NS 75cc/hr. tolerating po intake, d /c IVF. trop neg. repeat EKG today. obtain TTE. ASA 81mg daily. cont Cardizem 30mg po q6h for hypertension/tachycardia, no BB given active wheezing. cont losartan 25mg daily. CTA neg for PE. Resp- on NC now, no distress today. cough+, send sputum culture. cont solumedrol 40mg iv q8h. cont bronchodilators q4h. cont spriva inh. -CTA chest neg for PE, no infiltrates/effusions or signs of codp exacc; noted small Right lung nodule. -Needs PFTs outpatient. -unclear if copd, no sig history of smoking or exposure to chemicals. ID- afebrile. wbc 12. CXR without infiltrate. CTA neg for PE/infiltrate. Recieved 1 dose ceftriaxone/azithro 01/22, off now. will monitor off abx. sputum culture. on Steroids IV which raised WBC count also likely. nontoxic appearing. GI- diabetic/cardiac diet. GI proph. Renal- Cr okay. K okay. mild acidosis improving. d/c ivf. Heme- hg stable. plt stable. DVT proph enoxaparin/scd Endo- fignerstick achs. BG increased likely from steroids. Increase Lantus 8u qhs, lispro achs. cont synthroid 100mcg daily. holding metformin/glipizide. Musculsk- pressure ulcer prophylaxis. oob to chair Wounds- none Nutrition- diabetic/cardiac diet DVT prophylaxis: lovenox/scd GI prophylaxis: h2b Central Line: no Arterial Line: no Reynoso Cathetor: no Disposition: ICU Code Status: full code Total Critical Care time is 35 minutes, excluding procedures/teaching Castillo Overton MD Coal Yard Supervisor (Electronically Signed)
--- NOTE | 2018-01-24 15:00 | ECHO ---
Patient: SARAH LUNA Rec#: [id number] : 1935 Date: 01/24/2018 Age: 82y Height: 150 cm / 59.1 in Weight: 63.1 kg / 139.1 lbs Sex: F BSA: 1.58 Room#: [facility] Admit Date#: 01/22/2018 Type: Inpatient Referring: Castillo Overton Reading: Nirmal Perez DO Sponge Maker: Beata Medina RDCS CC: ASIA SAMSON Transthoracic Echocardiogram Indication: Shortness of breath BP: 107/57 HR: 84 Rhythm: NSR with PVCs Findings History: COPD, DM, HTN, hypothyroidism. Technical Comments: The study quality is fair. Completed at 1100. Left Ventricle: The left ventricular chamber size is normal. Mild concentric left ventricular hypertrophy is observed. There is normal left ventricular systolic function. The estimated ejection fraction is 60-65%. Abnormal left ventricular diastolic function is observed. Left Atrium: The left atrium is mildly dilated. Right Ventricle: The right ventricular chamber size and systolic function are within normal limits. Right Atrium: The right atrial cavity size is normal. Aortic Valve: The aortic valve is trileaflet. The aortic valve leaflets are mildly thickened. There is a trace of aortic regurgitation. There is no evidence of aortic stenosis. Mitral Valve: There is mitral annular calcification. The mitral valve leaflets are mildly thickened. There is a trace of mitral regurgitation. There is no evidence of mitral stenosis. Tricuspid Valve: The tricuspid valve leaflets are mildly thickened. There is trace tricuspid regurgitation. Unable to estimate the right ventricular systolic pressure. There is no tricuspid stenosis. Pulmonic Valve: The pulmonic valve appears normal. There is a trace pulmonic regurgitation. There is no pulmonic stenosis. Pericardium: There is no significant pericardial effusion. Aorta: There is no dilatation of the ascending aorta. There is no dilatation of the aortic arch. The aortic root is normal in size. Pulmonary Artery: The main pulmonary artery is not well visualized. Venous: The inferior vena cava appears normal in size. There is a greater than 50% respiratory change in the inferior vena cava dimension. Conclusions The left ventricular chamber size is normal. Mild concentric left ventricular hypertrophy is observed. There is normal left ventricular systolic function. The estimated ejection fraction is 60-65% with no obvious segmental wall motion abnormalities noted The left atrium is mildly dilated. The right ventricular chamber size and systolic function are within normal limits. No significant valvular abnormalities noted Unable to estimate the right ventricular systolic pressure. None prior for comparison at time of interpretation Measurements Name Value Normal Range RVDdMajor (2D) 4.1 cm (2.2 - 4.4) RAd ISD 4CH 4.8 cm (3.4 - 4.9) RA (A4C)W 3.8 cm (2.9 - 4.6) IVSd (2D) 1.2 cm (0.6 - 1) LVPWd (2D) 1.2 cm (0.6 - 1) LVIDd (2D) 5.3 cm (3.6 - 5.4) LVIDs (2D) 3.3 cm - LV FS (2D) 41 % (25 - 45) Aortic Annulus 1.9 cm (1.4 - 2.6) Ao root diameter (2D) 2.8 cm (2.1 - 3.5) Ascending Ao 3 cm (2.1 - 3.4) Aortic arch 2.3 cm (1.8 - 3.4) LA dimension (AP) 2D 3.3 cm (2.3 - 3.8) LAd ISD 4CH 5.9 cm (2.9 - 5.3) LA ISD 4CH W 4.3 cm (2.5 - 4.5) Name Value Normal Range LA ESV BP (A/L) index 35 ml/m2 - Name Value Normal Range MV E-wave Vmax 1.1 m/sec - MV deceleration time 218 msec - MV A-wave Vmax 1.5 m/sec - MV E:A ratio 0.7 ratio - LV septal e' Vmax 0.05 m/sec - LV lateral e' Vmax 0.06 m/sec - LV E:e' septal ratio 22 ratio - LV E:e' lateral ratio 18.33 ratio - Name Value Normal Range AV Vmax 1.7 m/sec - AV VTI 38.8 cm - AV peak gradient 11 mmHg - AV mean gradient 7 mmHg - LVOT Vmax 1.1 m/sec - LVOT VTI 25.4 cm - LVOT peak gradient 5 mmHg - LVOT mean gradient 3 mmHg - TITA Vmax 1 m/sec - Name Value Normal Range IVC diameter 1.9 cm - Name Value Normal Range PV Vmax 1.2 m/sec - PV peak gradient 6 mmHg -
[2018-01-24] MEDS: Metoprolol Tartrate TAB* 25 MG PO SCH ×2 (18:10→22:05)
[2018-01-24] MEDS ORDERED: Insulin GLARGINE(*) 1 UNITS UNIT SUBCUT SCH (21:00)
[2018-01-24] MEDS: Enoxaparin(*) 40 MG/0.4 ML SYR SUBCUT SCH (22:07)
[2018-01-25] MEDS: Albuterol 2.5 MG/3 ML NEB.SOL* (0.083%) INH SCH ×6 (00:14→19:35)
[2018-01-25] MEDS: methylPREDNISolone SOD 40 MG* 1 ML VIAL IV SCH ×3 (04:12→21:41)
[2018-01-25] MEDS: Levothyroxine TAB* 100 MCG TAB PO SCH (06:25)
[2018-01-25 06:53] LABS: Hematocrit 33 % (35-47); Hemoglobin 11.2 g/dl (12.0-16.0); Mean Corpuscular HGB Conc 34 g/dl (31-36); Mean Corpuscular Hemoglobin 32 pg (27-31); Mean Corpuscular Volume 95 fL (80-97); Mean Platelet Volume 9.1 fL (7.4-10.4); Platelet Count 124 10^3/ul (150-450); Red Blood Count 3.52 10^6/ul (4.00-5.40); Red Cell Distribution Width 12 % (10.5-15); White Blood Count 8.6 10^3/ul (3.5-10.8)
[2018-01-25 07:12] LABS: EGFR Non-African American 46.7 (>60)
[2018-01-25] MEDS: Tiotropium CAP.INH* CAP.INH/18 MCG (USE ORDER SET !) INH SCH (07:39)
[2018-01-25] MEDS: Metoprolol Tartrate TAB* 25 MG PO SCH ×2 (09:16→21:41)
[2018-01-25] MEDS: Famotidine TAB* 20 MG PO SCH (09:16)
[2018-01-25] MEDS: Losartan TAB* 25 MG PO SCH (09:16)
[2018-01-25] MEDS: Aspirin EC TAB* 81 MG TAB.EC PO SCH (09:17)
[2018-01-25] MEDS: Insulin LISPRO* 1 UNITS UNIT SUBCUT SCH ×4 (09:17→21:40)
[2018-01-25] MEDS ORDERED: Metoprolol Tartrate TAB* 25 MG PO ONE (09:57)
[2018-01-25] MEDS ORDERED: methylPREDNISolone SOD 40 MG* 1 ML VIAL IV SCH (10:03)
--- NOTE | 2018-01-25 10:04 | PN ---
Progress Note - Progress Note Date of Service: 01/25/18 Note: Progress Note -- Critical Care 24 hour events: -tmax 98; cough+, sputum+; feels better; on NC 5 L, no resp distress -in chair, eating; no other complaints offered Tele: NSR Vitals: Vital Signs Temp 98.8 F 01/25/18 08:00 Pulse 91 01/25/18 09:01 Resp 20 01/25/18 09:01 BP 179/99 01/25/18 09:01 Pulse Ox 98 01/25/18 09:01 Intake & Output 01/24/18 01/25/18 01/25/18 18:59 06:59 18:59 Intake Total 821 560 Output Total 200 650 300 Balance 621 -650 260 Weight 67.5 kg Intake: IV Fluids 101 NS (0.9%) 101 Oral 720 560 Output: Urine 200 650 300 O2/Vent: NC 5L Infusions: NS 75cc/hr Current Medications: Acetaminophen (Tylenol Tab*) 650 mg PO Q4H PRN PRN Reason: HEADACHE/PAIN Last Admin: 01/23/18 09:03 Dose: 650 mg Albuterol (Ventolin 2.5 Mg/3 Ml Neb.Isidra*) 2.5 mg INH [id number] AWAKE [facility] Aspirin (Aspirin Ec Tab*) 81 mg PO DAILY [facility] Last Admin: 01/25/18 09:17 Dose: 81 mg Device (Tiotropium Inhaler Device*) 1 each .SEE ORDER .USE w/ SPIRIVA CAPS [facility] Dextrose (D50w Syringe 50 Ml*) 12.5 gm IV PUSH .FOR FS < 60 - SS PRN PRN Reason: FS < 60 Enoxaparin Sodium (Lovenox(*)) 40 mg SUBCUT Q24H [facility] Last Admin: 01/24/18 22:07 Dose: 40 mg Famotidine (Pepcid Tab*) 20 mg PO DAILY [facility] Last Admin: 01/25/18 09:16 Dose: 20 mg Hydralazine HCl (Apresoline Iv*) 10 mg IV SLOW PU Q6H PRN PRN Reason: SBP>180 Insulin Glargine (Lantus(*)) 8 units SUBCUT BEDTIME [facility] Last Admin: 01/24/18 22:06 Dose: 8 units Insulin Human Lispro (Humalog*) 0 units SUBCUT ACHS [facility]; Protocol Last Admin: 01/25/18 09:17 Dose: 4 unit Levothyroxine Sodium (Synthroid Tab*) 100 mcg PO DAILY@0600 [facility] Last Admin: 01/25/18 06:25 Dose: 100 mcg Losartan Potassium (Cozaar Tab*) 25 mg PO DAILY [facility] Last Admin: 01/25/18 09:16 Dose: 25 mg Methylprednisolone Sodium Succinate (Solu-Medrol 40 Mg) 40 mg IV Q8H [facility] Last Admin: 01/25/18 09:18 Dose: 40 mg Metoprolol Tartrate (Lopressor Tab*) 12.5 mg PO Q12HR [facility] Last Admin: 01/25/18 09:16 Dose: 12.5 mg Morphine Sulfate (Morphine Vial*) 2 mg IV Q4H PRN PRN Reason: PAIN - MODERATE Last Admin: 01/23/18 10:09 Dose: 2 mg Ondansetron HCl (Zofran Inj*) 4 mg IV Q6H PRN PRN Reason: NAUSEA Last Admin: 01/23/18 06:32 Dose: 4 mg Oxycodone/Acetaminophen (Percocet 5/325 Tab*) 1 tab PO Q6H PRN PRN Reason: PAIN Tiotropium [place] (Spiriva Cap.Inh*) 1 cap INH DAILY [facility] Last Admin: 01/25/18 07:39 Dose: 1 cap Physical Exam: General: awake, alert, mild tachypnea, no diaphoresis Head: normocephalic, atraumatic HEENT: no pallor, no icterus, moist mucous membranes Neck: soft, supple, no jvd, no stridor CVS: tachy borderline, regular, no murmur Resp: bilateral air entry, no rhales, more coarse breath sounds and more rhonchi with wheeze, no acc muscle use Abdomen: soft, nontender, nondistended, bowel sounds present Ext: pulses+, warm, no edema Skin: intact Neuro: awake, alert, orientedx3, moving all extremities, no gross focal deficit Labs: Laboratory Results - last 24 hr 01/24/18 01/24/18 01/24/18 11:31 17:33 20:26 WBC RBC Hgb Hct MCV MCH MCHC RDW Plt Count MPV Sodium Potassium Chloride Carbon Dioxide Anion Gap BUN Creatinine Est GFR ( Amer) Est GFR (Non-Af Amer) BUN/Creatinine Ratio Glucose POC Glucose (mg/dL) 202 H 317 H 266 H Calcium Magnesium 01/25/18 01/25/18 01/25/18 06:33 06:33 07:54 WBC 8.6 RBC 3.52 L Hgb 11.2 L Hct 33 L MCV 95 MCH 32 H MCHC 34 RDW 12 Plt Count 124 L MPV 9.1 Sodium 138 Potassium 4.7 Chloride 110 Carbon Dioxide 22 Anion Gap 6 BUN 32 H Creatinine 1.12 H Est GFR ( Amer) 56.5 Est GFR (Non-Af Amer) 46.7 BUN/Creatinine Ratio 28.6 H Glucose 209 H POC Glucose (mg/dL) 205 H Calcium 9.3 Magnesium 2.0 Imaging: cxr 01/22 - no infiltrate/effusion/ptx. no cardiomegaly CTA chest 01/23 - no PE, no infiltrate TTE 01/23 - normal LVEF, no valvular abnormality noted Assessment: 82y F w/pmhx of HTN, DM, hypothyroidism, COPD?; comes to ER for increasing shortness of breath. She states she has been short of breath for months now and increasing. She does not remember any viral illness, no fever/ chills. She was told by her PMD she has COPD and was started on albuterol MDI and nebs, without improvement now. She has been having chest pain on the left, pleuritic in nature, more on coughing and deep breaths, but sometimes present otherwise. - acute COPD exaccerbation -Lactic acidosis resolved HTN DM Plan: Neuro- awake/alert. delirium prec CVS- NSR, intermittent ectopy. BP stable 90s. No IVF. trop neg. EKG with ectopy noted from 01/24. TTE reviewed. ASA 81mg daily. increase metoprolol 25mg po bid. cont losartain 25mg. add amlodipine 5mg daily. she had some abnormal ekg findings initially, chronic SOB. may have to consider a stress test given her risk factors. Resp- on NC 5L , no distress. cough+. sputum with 1+ gram pos. cont solumedrol 40mg iv q12h. cont bronchodilators q4h. cont spriva inh. -some rhonchi/wheezing but appears better; more air movement; cont nebs q4h -CTA chest neg for PE, no infiltrates/effusions or signs of codp exacc; noted small Right lung nodule. -Needs PFTs outpatient. -unclear if copd, no sig history of smoking or exposure to chemicals. Cardiology consult for possible stress ID- afebrile. wbc 8. CXR without infiltrate. CTA neg for PE/infiltrate. Sputum gram stain with 1+ gram po. will start PO azithro 250mg x5 days. on Steroids IV which raised WBC count also likely. nontoxic appearing. GI- diabetic/cardiac diet. GI proph. Renal- Cr okay, likely underlying CKD3. K okay. Heme- hg stable. plt stable. DVT proph enoxaparin/scd Endo- fignerstick achs. BG increased likely from steroids, re-eval daily. Increase Lantus 12u qhs, lispro achs. cont synthroid 100mcg daily. holding metformin/glipizide. Musculsk- pressure ulcer prophylaxis. oob to chair Wounds- none Nutrition- diabetic/cardiac diet DVT prophylaxis: lovenox/scd GI prophylaxis: h2b Central Line: no Arterial Line: no Reynoso Cathetor: no Disposition: ICU, transfer to medical floor Code Status: full code Castillo Overton MD Product Safety Engineer (Electronically Signed)
[2018-01-25] MEDS: Azithromycin TAB* 250 MG PO SCH (10:39)
[2018-01-25] MEDS: amLODIPine TAB* 5 MG PO SCH (10:40)
[2018-01-25] MEDS ORDERED: Insulin GLARGINE(*) 1 UNITS UNIT SUBCUT SCH (21:00)
[2018-01-25] MEDS: Enoxaparin(*) 40 MG/0.4 ML SYR SUBCUT SCH (21:39)
[2018-01-26] MEDS: Albuterol 2.5 MG/3 ML NEB.SOL* (0.083%) INH SCH ×4 (01:35→19:28)
[2018-01-26] MEDS: Levothyroxine TAB* 100 MCG TAB PO SCH (06:09)
[2018-01-26 07:01] LABS: Hematocrit 36 % (35-47); Mean Corpuscular HGB Conc 34 g/dl (31-36); Mean Corpuscular Hemoglobin 32 pg (27-31); Mean Corpuscular Volume 94 fL (80-97); Platelet Count 144 10^3/ul (150-450); Red Blood Count 3.78 10^6/ul (4.00-5.40); Red Cell Distribution Width 13 % (10.5-15)
[2018-01-26] MEDS: Tiotropium CAP.INH* CAP.INH/18 MCG (USE ORDER SET !) INH SCH (07:45)
[2018-01-26] MEDS: Insulin LISPRO* 1 UNITS UNIT SUBCUT SCH ×4 (08:56→21:20)
[2018-01-26] MEDS: Famotidine TAB* 20 MG PO SCH (08:57)
[2018-01-26] MEDS: amLODIPine TAB* 5 MG PO SCH (08:57)
[2018-01-26] MEDS: Azithromycin TAB* 250 MG PO SCH (08:57)
[2018-01-26] MEDS: Aspirin EC TAB* 81 MG TAB.EC PO SCH (08:57)
[2018-01-26] MEDS: Metoprolol Tartrate TAB* 25 MG PO SCH ×2 (08:57→21:20)
[2018-01-26] MEDS: methylPREDNISolone SOD 40 MG* 1 ML VIAL IV SCH ×2 (08:57→21:20)
[2018-01-26] MEDS: Losartan TAB* 25 MG PO SCH (08:57)
[2018-01-26] MEDS ORDERED: Furosemide IV* 10 MG/ML 2 ML VIAL (20 MG) IV SLOW PU ONE (09:49)
--- NOTE | 2018-01-26 12:56 | PN ---
Subjective Date of Service: 01/26/18 Interval History: HOSPITALIST PROGRESS NOTE Patient seen and examined at bedside. Care reviewed and d/w Jesus Alberto Ho RN. She feels better today, wants to go home. Still has some dyspnea with exertion, "but I'm much better than when I came in". Family History: Unchanged from Admission Social History: Unchanged from Admission Past Medical History: Unchanged from Admission Objective Active Medications: Acetaminophen (Tylenol Tab*) 650 mg PO Q4H PRN PRN Reason: HEADACHE/PAIN Last Admin: 01/23/18 09:03 Dose: 650 mg Albuterol (Ventolin 2.5 Mg/3 Ml Neb.Isidra*) 2.5 mg INH [id number] AWAKE [facility] Last Admin: 01/26/18 07:43 Dose: 2.5 mg Amlodipine Besylate (Norvasc Tab*) 5 mg PO DAILY [facility] Last Admin: 01/26/18 08:57 Dose: 5 mg Aspirin (Aspirin Ec Tab*) 81 mg PO DAILY [facility] Last Admin: 01/26/18 08:57 Dose: 81 mg Azithromycin (Zithromax Tab*) 250 mg PO DAILY [facility] Stop: 01/29/18 09:01 Last Admin: 01/26/18 08:57 Dose: 250 mg Device (Tiotropium Inhaler Device*) 1 each .SEE ORDER .USE w/ SPIRIVA CAPS [facility] Dextrose (D50w Syringe 50 Ml*) 12.5 gm IV PUSH .FOR FS < 60 - SS PRN PRN Reason: FS < 60 Enoxaparin Sodium (Lovenox(*)) 40 mg SUBCUT Q24H [facility] Last Admin: 01/25/18 21:39 Dose: 40 mg Famotidine (Pepcid Tab*) 20 mg PO DAILY [facility] Last Admin: 01/26/18 08:57 Dose: 20 mg Hydralazine HCl (Apresoline Iv*) 10 mg IV SLOW PU Q6H PRN PRN Reason: SBP>180 Insulin Glargine (Lantus(*)) 12 units SUBCUT BEDTIME [facility] Last Admin: 01/25/18 21:40 Dose: 12 units Insulin Human Lispro (Humalog*) 0 units SUBCUT ACHS [facility]; Protocol Last Admin: 01/26/18 12:47 Dose: 6 unit Levothyroxine Sodium (Synthroid Tab*) 100 mcg PO DAILY@0600 [facility] Last Admin: 01/26/18 06:09 Dose: 100 mcg Losartan Potassium (Cozaar Tab*) 25 mg PO DAILY [facility] Last Admin: 01/26/18 08:57 Dose: 25 mg Methylprednisolone Sodium Succinate (Solu-Medrol 40 Mg) 40 mg IV Q12HR [facility] Last Admin: 01/26/18 08:57 Dose: 40 mg Metoprolol Tartrate (Lopressor Tab*) 25 mg PO Q12HR [facility] Last Admin: 01/26/18 08:57 Dose: 25 mg Morphine Sulfate (Morphine Vial*) 2 mg IV Q4H PRN PRN Reason: PAIN - MODERATE Last Admin: 01/23/18 10:09 Dose: 2 mg Ondansetron HCl (Zofran Inj*) 4 mg IV Q6H PRN PRN Reason: NAUSEA Last Admin: 01/23/18 06:32 Dose: 4 mg Oxycodone/Acetaminophen (Percocet 5/325 Tab*) 1 tab PO Q6H PRN PRN Reason: PAIN Tiotropium [place] (Spiriva Cap.Inh*) 1 cap INH DAILY [facility] Last Admin: 01/26/18 07:45 Dose: 1 cap Vital Signs - 8 hr 01/26/18 01/26/18 01/26/18 07:46 08:00 08:08 Temperature 97.6 F Pulse Rate 71 79 Respiratory 16 16 21 Rate Blood Pressure 124/81 (mmHg) O2 Sat by Pulse 96 97 Oximetry Oxygen Devices in Use Now: None Appearance: Pleasant elderly lady sitting up in bed in [facility]. Eyes: No Scleral Icterus Ears/Nose/Mouth/Throat: Mucous Membranes Moist Neck: Trachea Midline Respiratory: Symmetrical Chest Expansion and Respiratory Effort, - - BS+ bilaterally with bibasilar crackles Cardiovascular: RRR - Normal S1 and S2 Abdominal: NL Sounds; No Tenderness; No Distention Extremities: - - Bilateral LE pitting edema 2+ Neurological: Alert and Oriented x 3, NL Muscle Strength and Tone Result Diagrams: 01/26/18 06:49 01/26/18 06:49 Assess/Plan/Problems-Billing Assessment: Mrs Price is an 82yo F with PMH of COPD, asthma, type 2 DM, HTN, hypothyroidism , who presented to ED with c/o shortness of breath, found to have COPD exacerbation secondary to acute COPD exacerbation. - Patient Problems (1) Acute hypoxemic respiratory failure Comment: - Secondary to COPD/CHF exacerbation. - Resolved. (2) COPD exacerbation Comment: - Reports h/o COPD, but no tobacco exposure. - This episode was secondary to bronchitis. - Improving. - Continue bronchodilators, steroids, and Zithromax. - Will need PFTs as outpatient. (3) Acute diastolic CHF (congestive heart failure) Comment: - Echo showed EF 60-65% with no wall motion abnormalities. - IV Lasix today, continue ARB and beta keiry. - May benefit of stress test as outpatient. (4) Diabetes Comment: - Uncontrolled in the setting of steroid use. - Increase Lantus to 20 units and continue Lispro SS. (5) DVT prophylaxis Comment: - Lovenox. (6) Full code status Status and Disposition: Inpatient. Anticipate d/c in AM.
[2018-01-26] MEDS ORDERED: Insulin GLARGINE(*) 1 UNITS UNIT SUBCUT SCH (21:00)
[2018-01-26] MEDS: Enoxaparin(*) 40 MG/0.4 ML SYR SUBCUT SCH (21:19)
[2018-01-27] MEDS: Albuterol 2.5 MG/3 ML NEB.SOL* (0.083%) INH SCH ×3 (01:18→14:57)
[2018-01-27] MEDS: Levothyroxine TAB* 100 MCG TAB PO SCH (05:32)
[2018-01-27 06:27] LABS: Hematocrit 32 % (35-47); Mean Corpuscular HGB Conc 34 g/dl (31-36); Mean Corpuscular Hemoglobin 32 pg (27-31); Mean Corpuscular Volume 94 fL (80-97); Mean Platelet Volume 9.3 fL (7.4-10.4); Platelet Count 116 10^3/ul (150-450); Red Blood Count 3.43 10^6/ul (4.00-5.40); Red Cell Distribution Width 12 % (10.5-15); White Blood Count 3.5 10^3/ul (3.5-10.8)
[2018-01-27 07:25] LABS: EGFR Non-African American 44.8 (>60)
[2018-01-27] MEDS: Tiotropium CAP.INH* CAP.INH/18 MCG (USE ORDER SET !) INH SCH (07:26)
[2018-01-27] MEDS: Aspirin EC TAB* 81 MG TAB.EC PO SCH (08:59)
[2018-01-27] MEDS: methylPREDNISolone SOD 40 MG* 1 ML VIAL IV SCH (08:59)
[2018-01-27] MEDS: Azithromycin TAB* 250 MG PO SCH (08:59)
[2018-01-27] MEDS: Losartan TAB* 25 MG PO SCH (08:59)
[2018-01-27] MEDS: Metoprolol Tartrate TAB* 25 MG PO SCH (09:00)
[2018-01-27] MEDS: amLODIPine TAB* 5 MG PO SCH (09:00)
[2018-01-27] MEDS: Insulin LISPRO* 1 UNITS UNIT SUBCUT SCH ×2 (09:00→12:57)
[2018-01-27] MEDS: Famotidine TAB* 20 MG PO SCH (09:00)
--- NOTE | 2018-01-27 12:56 | DCNOTE ---
Subjective Date of Service: 01/27/18 Interval History: Patient reports she would like to go home. She denies SOB. Reports cough is greatly improved. She is off prn oxygen. She reports she has been ambulating around the halls and feels steady on her feet, also denies SOB/CP at rest or exertion. No fevers or chills. denies weakness or unsteady gait Family History: Unchanged from Admission Social History: Unchanged from Admission Past Medical History: Unchanged from Admission Objective Active Medications: Acetaminophen (Tylenol Tab*) 650 mg PO Q4H PRN PRN Reason: HEADACHE/PAIN Last Admin: 01/23/18 09:03 Dose: 650 mg Albuterol (Ventolin 2.5 Mg/3 Ml Neb.Isidra*) 2.5 mg INH [id number] AWAKE [facility] Last Admin: 01/27/18 07:26 Dose: 2.5 mg Amlodipine Besylate (Norvasc Tab*) 5 mg PO DAILY [facility] Last Admin: 01/27/18 09:00 Dose: 5 mg Aspirin (Aspirin Ec Tab*) 81 mg PO DAILY [facility] Last Admin: 01/27/18 08:59 Dose: 81 mg Azithromycin (Zithromax Tab*) 250 mg PO DAILY [facility] Stop: 01/29/18 09:01 Last Admin: 01/27/18 08:59 Dose: 250 mg Device (Tiotropium Inhaler Device*) 1 each .SEE ORDER .USE w/ SPIRIVA CAPS [facility] Dextrose (D50w Syringe 50 Ml*) 12.5 gm IV PUSH .FOR FS < 60 - SS PRN PRN Reason: FS < 60 Enoxaparin Sodium (Lovenox(*)) 40 mg SUBCUT Q24H [facility] Last Admin: 01/26/18 21:19 Dose: 40 mg Famotidine (Pepcid Tab*) 20 mg PO DAILY [facility] Last Admin: 01/27/18 09:00 Dose: 20 mg Hydralazine HCl (Apresoline Iv*) 10 mg IV SLOW PU Q6H PRN PRN Reason: SBP>180 Insulin Glargine (Lantus(*)) 20 units SUBCUT BEDTIME [facility] Last Admin: 01/26/18 21:19 Dose: 20 units Insulin Human Lispro (Humalog*) 0 units SUBCUT [facility]; Protocol Last Admin: 01/27/18 09:00 Dose: 4 unit Levothyroxine Sodium (Synthroid Tab*) 100 mcg PO DAILY@0600 [facility] Last Admin: 01/27/18 05:32 Dose: 100 mcg Losartan Potassium (Cozaar Tab*) 25 mg PO DAILY [facility] Last Admin: 01/27/18 08:59 Dose: 25 mg Metoprolol Tartrate (Lopressor Tab*) 25 mg PO Q12HR [facility] Last Admin: 01/27/18 09:00 Dose: 25 mg Morphine Sulfate (Morphine Vial*) 2 mg IV Q4H PRN PRN Reason: PAIN - MODERATE Last Admin: 01/23/18 10:09 Dose: 2 mg Ondansetron HCl (Zofran Inj*) 4 mg IV Q6H PRN PRN Reason: NAUSEA Last Admin: 01/23/18 06:32 Dose: 4 mg Oxycodone/Acetaminophen (Percocet 5/325 Tab*) 1 tab PO Q6H PRN PRN Reason: PAIN Tiotropium [place] (Spiriva Cap.Inh*) 1 cap INH DAILY [facility] Last Admin: 01/27/18 07:26 Dose: 1 cap Vital Signs - 8 hr 01/27/18 01/27/18 01/27/18 05:07 05:24 07:28 Temperature 97.7 F Pulse Rate 76 80 Respiratory 18 14 Rate Blood Pressure 133/71 150/60 (mmHg) O2 Sat by Pulse 94 98 Oximetry 01/27/18 01/27/18 01/27/18 08:00 08:21 11:41 Temperature 97.3 F 97.4 F Pulse Rate 84 68 Respiratory 20 20 Rate Blood Pressure 132/72 116/59 (mmHg) O2 Sat by Pulse 98 98 Oximetry Oxygen Devices in Use Now: None Appearance: well develioped elderly female A+O x3 in NAD Eyes: No Scleral Icterus, PERRLA Ears/Nose/Mouth/Throat: Clear Oropharnyx, Mucous Membranes Moist Neck: NL Appearance and Movements; NL JVP Respiratory: Symmetrical Chest Expansion and Respiratory Effort, Clear to Auscultation Cardiovascular: NL Sounds; No Murmurs; No JVD, RRR, - - trace LE edema b/l feet Abdominal: NL Sounds; No Tenderness; No Distention Neurological: Alert and Oriented x 3, NL Sensation, NL Gait, NL Muscle Strength and Tone Lines/Tubes/Other Access: Clean, Dry and Intact Peripheral IV Nutrition: Taking PO's Result Diagrams: 01/27/18 06:03 01/27/18 06:03 Additional Lab and Data: Lab Results 01/22/18 01/22/18 01/22/18 Range/Units 17:52 17:52 17:52 WBC 6.2 (3.5-10.8) 10^3/ul RBC 4.06 (4.00-5.40) 10^6/ul Hgb 12.9 (12.0-16.0) g/dl Hct 38 (35-47) % MCV 94 (80-97) fL MCH 32 H (27-31) pg MCHC 34 (31-36) g/dl RDW 12 (10.5-15) % Plt Count 143 L (150-450) 10^3/ul MPV 9.2 (7.4-10.4) fL Neut % (Auto) 56.8 % Lymph % (Auto) 18.4 % [place] % (Auto) 10.3 % Eos % (Auto) 14.1 % Baso % (Auto) 0.4 % Absolute Neuts (auto) 3.5 (1.5-7.7) 10^3/ul Absolute Lymphs (auto) 1.1 (1.0-4.8) 10^3/ul Absolute Monos (auto) 0.6 (0-0.8) 10^3/ul Absolute Eos (auto) 0.9 H (0-0.6) 10^3/ul Absolute Basos (auto) 0 (0-0.2) 10^3/ul Absolute Nucleated RBC 0 10^3/ul Nucleated RBC % 0.1 INR (Anticoag Therapy) 0.96 (0.77-1.02) APTT 34.0 (26.0-36.3) seconds D-Dimer, Quantitative Pending Patient Temperature ABG pH (7.35-7.45) ABG pH (Temp Correct) ABG pCO2 (35-45) mmHg ABG pCO2 (Temp Corrct ABG pO2 (80-100) mmHg ABG pO2 (Temp Correct ABG HCO3 (19-31) mmol/L ABG O2 Saturation (95-98) % ABG Base Excess (-2.0-2.0) Respiration Rate O2 Delivery Device Ventilator Type Vent Mode FiO2 Inspiratory Time PEEP Pressure Support Pressure Control EPAP IPAP BiPAP Sodium 135 (135-145) mmol/L Potassium 4.5 (3.5-5.0) mmol/L Chloride 103 (101-111) mmol/L Carbon Dioxide 24 (22-32) mmol/L Anion Gap 8 (2-11) mmol/L BUN 22 (6-24) mg/dL Creatinine 1.21 H (0.51-0.95) mg/dL Est GFR ( Amer) 51.7 (>60) Est GFR (Non-Af Amer) 42.7 (>60) BUN/Creatinine Ratio 18.2 (8-20) Glucose 197 H (70-100) mg/dL Lactic Acid (0.5-2.0) mmol/L Calcium 9.3 (8.6-10.3) mg/dL Magnesium 1.6 L (1.9-2.7) mg/dL Total Bilirubin 0.60 (0.2-1.0) mg/dL AST 29 (13-39) U/L ALT 19 (7-52) U/L Alkaline Phosphatase 118 H (34-104) U/L Troponin I 0.02 (<0.04) ng/mL B-Natriuretic Peptide (<=100) pg/mL Total Protein 6.6 (6.4-8.9) g/dL Albumin 3.7 (3.2-5.2) g/dL Globulin 2.9 (2-4) g/dL Albumin/Globulin Ratio 1.3 (1-3) Influenza A (Rapid) (Negative) Influenza B (Rapid) (Negative) 01/22/18 01/22/18 01/22/18 Range/Units 17:52 17:52 18:00 WBC (3.5-10.8) 10^3/ul RBC (4.00-5.40) 10^6/ul Hgb (12.0-16.0) g/dl Hct (35-47) % MCV (80-97) fL MCH (27-31) pg MCHC (31-36) g/dl RDW (10.5-15) % Plt Count (150-450) 10^3/ul MPV (7.4-10.4) fL Neut % (Auto) % Lymph % (Auto) % [place] % (Auto) % Eos % (Auto) % Baso % (Auto) % Absolute Neuts (auto) (1.5-7.7) 10^3/ul Absolute Lymphs (auto) (1.0-4.8) 10^3/ul Absolute Monos (auto) (0-0.8) 10^3/ul Absolute Eos (auto) (0-0.6) 10^3/ul Absolute Basos (auto) (0-0.2) 10^3/ul Absolute Nucleated RBC 10^3/ul Nucleated RBC % INR (Anticoag Therapy) (0.77-1.02) APTT (26.0-36.3) seconds D-Dimer, Quantitative Patient Temperature Not Reportable ABG pH 7.36 (7.35-7.45) ABG pH (Temp Correct) Not Reportable ABG pCO2 39 (35-45) mmHg ABG pCO2 (Temp Corrct Not Reportable ABG pO2 175 H (80-100) mmHg ABG pO2 (Temp Correct Not Reportable ABG HCO3 22.4 (19-31) mmol/L ABG O2 Saturation 99.8 H (95-98) % ABG Base Excess -3.2 L (-2.0-2.0) Respiration Rate Not Reportable O2 Delivery Device 6l nebulizer Ventilator Type Not Reportable Vent Mode Not Reportable FiO2 Not Reportable Inspiratory Time Not Reportable PEEP Not Reportable Pressure Support Not Reportable Pressure Control Not Reportable EPAP Not Reportable IPAP Not Reportable BiPAP Not Reportable Sodium (135-145) mmol/L Potassium (3.5-5.0) mmol/L Chloride (101-111) mmol/L Carbon Dioxide (22-32) mmol/L Anion Gap (2-11) mmol/L BUN (6-24) mg/dL Creatinine (0.51-0.95) mg/dL Est GFR ( Amer) (>60) Est GFR (Non-Af Amer) (>60) BUN/Creatinine Ratio (8-20) Glucose (70-100) mg/dL Lactic Acid 2.4 H* (0.5-2.0) mmol/L Calcium (8.6-10.3) mg/dL Magnesium (1.9-2.7) mg/dL Total Bilirubin (0.2-1.0) mg/dL AST (13-39) U/L ALT (7-52) U/L Alkaline Phosphatase (34-104) U/L Troponin I (<0.04) ng/mL B-Natriuretic Peptide 63 (<=100) pg/mL Total Protein (6.4-8.9) g/dL Albumin (3.2-5.2) g/dL Globulin (2-4) g/dL Albumin/Globulin Ratio (1-3) Influenza A (Rapid) (Negative) Influenza B (Rapid) (Negative) 01/22/18 Range/Units 18:27 WBC (3.5-10.8) 10^3/ul RBC (4.00-5.40) 10^6/ul Hgb (12.0-16.0) g/dl Hct (35-47) % MCV (80-97) fL MCH (27-31) pg MCHC (31-36) g/dl RDW (10.5-15) % Plt Count (150-450) 10^3/ul MPV (7.4-10.4) fL Neut % (Auto) % Lymph % (Auto) % [place] % (Auto) % Eos % (Auto) % Baso % (Auto) % Absolute Neuts (auto) (1.5-7.7) 10^3/ul Absolute Lymphs (auto) (1.0-4.8) 10^3/ul Absolute Monos (auto) (0-0.8) 10^3/ul Absolute Eos (auto) (0-0.6) 10^3/ul Absolute Basos (auto) (0-0.2) 10^3/ul Absolute Nucleated RBC 10^3/ul Nucleated RBC % INR (Anticoag Therapy) (0.77-1.02) APTT (26.0-36.3) seconds D-Dimer, Quantitative Patient Temperature ABG pH (7.35-7.45) ABG pH (Temp Correct) ABG pCO2 (35-45) mmHg ABG pCO2 (Temp Corrct ABG pO2 (80-100) mmHg ABG pO2 (Temp Correct ABG HCO3 (19-31) mmol/L ABG O2 Saturation (95-98) % ABG Base Excess (-2.0-2.0) Respiration Rate O2 Delivery Device Ventilator Type Vent Mode FiO2 Inspiratory Time PEEP Pressure Support Pressure Control EPAP IPAP BiPAP Sodium (135-145) mmol/L Potassium (3.5-5.0) mmol/L Chloride (101-111) mmol/L Carbon Dioxide (22-32) mmol/L Anion Gap (2-11) mmol/L BUN (6-24) mg/dL Creatinine (0.51-0.95) mg/dL Est GFR ( Amer) (>60) Est GFR (Non-Af Amer) (>60) BUN/Creatinine Ratio (8-20) Glucose (70-100) mg/dL Lactic Acid (0.5-2.0) mmol/L Calcium (8.6-10.3) mg/dL Magnesium (1.9-2.7) mg/dL Total Bilirubin (0.2-1.0) mg/dL AST (13-39) U/L ALT (7-52) U/L Alkaline Phosphatase (34-104) U/L Troponin I (<0.04) ng/mL B-Natriuretic Peptide (<=100) pg/mL Total Protein (6.4-8.9) g/dL Albumin (3.2-5.2) g/dL Globulin (2-4) g/dL Albumin/Globulin Ratio (1-3) Influenza A (Rapid) Negative (Negative) Influenza B (Rapid) Negative (Negative) Microbiology and Other Data: Microbiology 01/24/18 10:50 Gram Stain - Final Sputum Expectorated Sputum Culture - Final Normal [place] 01/22/18 23:05 Nasal Screen MRSA (PCR) - Final Nasal Mrsa Not Detected 01/22/18 18:15 Influenza Types A,B Antigen - Final Nasal Specimen received for Influenza A/B Molecular testing Assess/Plan/Problems-Billing Assessment: Mrs Price is an 82yo F with PMH of COPD, asthma, type 2 DM, HTN, hypothyroidism , who presented to ED with c/o shortness of breath, found to have COPD exacerbation secondary to acute COPD exacerbation. - Patient Problems (1) COPD exacerbation Comment: - Reports h/o COPD, but no tobacco exposure. - secondary to bronchitis. - Improving. - Continue bronchodilators, steroids, and Zithromax. Pt has nebulizer machine at home. - Will need PFTs as outpatient. (2) Acute diastolic CHF (congestive heart failure) Comment: - Resolved - Echo showed EF 60-65% with no wall motion abnormalities. - Continue ARB and beta keiry. - Endorsed low salt diet - May benefit of stress test as outpatient. (3) Acute hypoxemic respiratory failure Comment: - Secondary to COPD/CHF exacerbation. - Resolved. (4) Diabetes Comment: - Restart metformin on DC (5) Full code status (6) DVT prophylaxis Comment: - Lovenox. Status and Disposition: Inpatient.Plan for DC to home today - reviewed DC plan with patient and her brother
[2018-01-27 15:05] VITALS: BP 107/63
--- NOTE | 2018-01-28 07:10 | DS ---
DISCHARGE SUMMARY: DATE OF ADMISSION: 01/22/18. DATE OF DISCHARGE: 01/27/18. PROVIDER: Lamberto Yeung NP. ATTENDING PHYSICIAN: Dr. Galicia * (report dictated by Lambreto Yueng NP). PRIMARY CARE PROVIDER: Dr. Acosta. REFERRING TO: 1. Dr. Hines, Host Coordinator for PFT and pulmonary evaluation. 2. [facility]. The patient see the next provider available for followup of acute diastolic congestive heart failure with possible benefit of a stress test an outpatient. DISCHARGE DIAGNOSES: 1. Acute hypoxic respiratory failure secondary to chronic obstructive pulmonary disease/congestive heart failure exacerbation. 2. Acute diastolic congestive heart failure. 3. Chronic obstructive pulmonary disease exacerbation. 4. Small right lung nodule noted on CTA. 5. Uncontrolled hypertension. SECONDARY DIAGNOSES: 1. Diabetes. 2. Asthma. 3. Hypertension. 4. Hypothyroidism. HISTORY OF PRESENT ILLNESS AND HOSPITAL COURSE: Please see history and physical by Dr. Durand for full admission details. In summary, this is an 82- year-old female who presented to the emergency department on 01/22/18 with complaints of shortness of breath. She reported that over the past 2 to 3 months, she had worsening shortness of breath and then over the last several weeks, she has had dramatic worsening shortness of breath, exhausted with minimal exertion who was admitted to the hospitalist service for COPD exacerbation with moderate respiratory distress. She was noted to have some hypoxia after she was admitted, therefore meeting diagnosis for acute hypoxic respiratory failure. She was started on Vapotherm as initially she was unable to tolerate BiPAP. She was in the ICU followed by the coffee shop attendant Dr. Overton. She initially had lactic acidosis which was felt to be secondary to her increased work of breathing. She did well throughout her hospitalization and eventually being weaned down off Vapotherm and currently over the past 24 hours has been on room air, oxygenating 98%. She has been treated with azithromycin and Solu-Medrol. For several days, she was having a productive cough and had sputum with a Gram stain with 1+ gram-positive. However, this did end up resulting as normal moe in the Gram stain. She had round the clock nebulizers and was started on Spiriva. She underwent a CT of the chest. It was negative for PE, no infiltrates or effusions and was noted to have a small right lung nodule which will need to be followed up as an outpatient. She has been referred to Pulmonology, Dr. Hines's office, and she will require PFTs as an outpatient. Overall it was unclear if this was COPD exacerbation, possibly bronchitis. She has no significant history of smoking or exposure to chemicals. In regard to the patient's acute diastolic congestive heart failure , her echo showed an EF of 60% to 65% with no wall motion abnormalities. She had several days of IV Lasix and had some noted increase in lower extremity swelling, which has greatly improved and almost resolved. She was continued on her ARB and started on a beta-keiry with metoprolol 25 mg p.o. b.i.d. She has tolerated this well. The patient may benefit from an outpatient cardiac stress test and has been referred to cardiology office for evaluation and further workup as an outpatient. The patient does appear to have mild chronic kidney disease. Her creatinine is about 1.6, which appears to be around her baseline. Blood sugars were mildly elevated with IV Solu-Medrol. She had a negative influenza A and B. In regard to the patient's hypertension, she was noted to trend a little high and had some uncontrolled hypertension with systolics in the 150s to 180s range. However, this has been much better controlled over the past 24 hours. I discussed a low salt diet with the patient educating her that she may be salt - sensitive and this may make her gain fluid in her lower extremities and/or cause acute congestive heart failure and to avoid high salt products. As well discussed a diabetic diet. Discussed if she has any increase in lower extremity swelling, gains weight, or has increase in shortness of breath, to notify her primary or if severe return to the emergency department for evaluation. Today, on discharge, the patient is ambulating around the unit frequently, off oxygen. Her pulse oximetry was checked with ambulation and is 98% on room air. The patient does not appear short of breath and patient would like to go home. She reports that her cough is much improved and she is not producing much sputum. She reports good appetite. No fevers or chills. Discussed with the patient to follow up with her primary care provider as well as we discussed her new medication regimen. HOME MEDICATIONS: 1. Albuterol HFA inhaler 2 puffs INH q.4 hours p.r.n. 2. Claritin 10 mg p.o. daily. 3. Cozaar 25 mg p.o. daily. 4. Synthroid 100 mcg p.o. daily. 5. Metformin 500 mg p.o. b.i.d. 6. Glipizide 10 mg p.o. b.i.d. New medications: 1. Prednisone taper. 2. Spiriva 1 cap INH daily. 3. Metoprolol tartrate 25 mg p.o. b.i.d. 4. Pepcid 20 mg p.o. daily while on prednisone. 5. Azithromycin 250 mg p.o. daily x2 days. 6. Aspirin 81 mg p.o. daily. DISCHARGE PLAN: 1. Follow up with primary provider Dr. Acosta within 3 to 5 days. 2. Patient has been referred to Dr. Hines for evaluation as well as PFT testing and followup for pulmonary nodule. 3. Referred to [facility] with next available exploitation analyst for cardiac evaluation as well as may benefit from an outpatient cardiac nuclear stress test. 4. The patient was instructed to return with any worsening or concerning symptoms. 5. The patient is stable for discharge home. TIME SPENT: Approximately 60 minutes was spent on this discharge. LAMBERTO YEUNG NP [id number]/[facility] #: [id number] LEONID
== END 2018-01-27 15:35 | disposition home or self-care (01) | DRG 190 ==
LOC: ED 17:26 → ICU 19:37 → MED 01-25 14:29
PROVIDERS: ADMIT Hospitalist; ATTEND Internal Medicine
PROC: 5A09457 Assistance with Respiratory Ventilation, 24-96 Consecutive Hours, Continuous Positive Airway Pressure (ICD-10-PCS; principal; 2018-01-22)
DX: J44.1 Chronic obstructive pulmonary disease with (acute) exacerbation (principal); I50.31 Acute diastolic (congestive) heart failure; J96.01 Acute respiratory failure with hypoxia; E87.2 Acidosis; I11.0 Hypertensive heart disease with heart failure; E11.9 Type 2 diabetes mellitus without complications; R91.1 Solitary pulmonary nodule; E03.9 Hypothyroidism, unspecified; Z79.84 Long term (current) use of oral hypoglycemic drugs; Z79.51 Long term (current) use of inhaled steroids; Z79.899 Other long term (current) drug therapy; Z88.5 Allergy status to narcotic agent; Z83.3 Family history of diabetes mellitus; Z82.5 Family history of asthma and other chronic lower respiratory diseases
CPT/HCPCS: 36415; 71045; 71275; 80048; 80053; 80061; 82803; 83036; 83605; 83735; 83880; 84100; 84484; 85025; 85027; 85379; 85610; 85730; 87070; 87205; 87641; 93005; 93306; 94640; 99283; A9270-GY; J0456; J0696; J1100; J1650; J1940; J2270; J2405; J2920; J3475; Q9967

== ENCOUNTER 2018-03-29 06:52 | Inpatient (IN) | payer MEDICARE ==
[2018-03-29] MEDS ORDERED: Albuterol/Ipratropium NEB.SOL* Albuterol 2.5 MG/Ipratropium 0.5 MG 3 ML INH ONE ×2 (07:04→07:25)
[2018-03-29] MEDS ORDERED: NS 0.9% 1000 ML** 1,000 ML IV ONE (07:10)
[2018-03-29] MEDS ORDERED: Magnesium Sulfate 2 GM IV* 2 GM/50 ML BAG IVPB ONE (07:11)
[2018-03-29] MEDS ORDERED: Dexamethasone IV* 4 MG/ML 1 ML (4 MG) IV SLOW PU ONE (07:12)
[2018-03-29 07:30] LABS: ABS Basophils 0 10^3/ul (0-0.2); ABS Eosinophils 0.8 10^3/ul (0-0.6); ABS Monocytes 0.5 10^3/ul (0-0.8); ABS Neutrophils 4.2 10^3/ul (1.5-7.7); ABS Nucleated RBC 0 10^3/ul; Eosinophil % 12.4 %; Hematocrit 36 % (35-47); Hemoglobin 12.2 g/dl (12.0-16.0); Lymphocyte % 15.3 %; Mean Corpuscular HGB Conc 34 g/dl (31-36); Mean Corpuscular Hemoglobin 32 pg (27-31); Mean Corpuscular Volume 95 fL (80-97); Mean Platelet Volume 8.3 fL (7.4-10.4); Nucleated Red Blood Cells % 0; Platelet Count 143 10^3/ul (150-450); Red Blood Count 3.82 10^6/ul (4.00-5.40); Red Cell Distribution Width 13 % (10.5-15); White Blood Count 6.6 10^3/ul (3.5-10.8)
[2018-03-29 07:38] LABS: Influenza A Molecular NEGATIVE (Negative); Influenza B Molecular NEGATIVE (Negative)
[2018-03-29 07:38] LABS: Activated Partial Thrombo Time 30.2 seconds (26.0-36.3); INR 0.98 (0.77-1.02)
[2018-03-29 07:48] LABS: Albumin 3.8 g/dL (3.2-5.2); Albumin/Globulin Ratio 1.4 (1-3); BUN/Creatinine Ratio 18.7 (8-20); C Reactive Protein 2.85 mg/L (<8.01); Calcium 9.6 mg/dL (8.6-10.3); EGFR African American 50.6 (>60); EGFR Non-African American 41.8 (>60); Globulin 2.7 g/dL (2-4); Potassium 4.2 mmol/L (3.5-5.0); Total Bilirubin 1.1 mg/dL (0.2-1.0); Total Protein 6.5 g/dL (6.4-8.9)
[2018-03-29 07:51] LABS: Troponin I 0.01 ng/mL (<0.04)
[2018-03-29 07:54] LABS: CKMB ng/mL 4.5 ng/mL (0.6-6.3)
--- NOTE | 2018-03-29 08:22 | ED ---
Shortness of Breath - HPI Summary HPI Summary: Patient presents to the ED with SOB worsening over the past 1-2 weeks. Son states she has been worse at night and lying flat. Denies fevers. She was seen in the ED and admitted for same in Jan. Never dx with COPD in the past until Jan when she was dx with COPD exacerbation. She was to follow up with pulmonology but never did because she states "I don't want a stress test." She denies a smoking history. She states symptoms have been present times approximately 2 weeks, however has worsened over the past few days. She states she has a albuterol puffer at home but denies any nebulized treatments. Denies any fevers, sweats, chills. Denies abdominal pain, CP. She endorses type 2 diabetes. - History of Current Complaint Chief Complaint: EDShortnessOfBreath Time Seen by Provider: 03/29/18 07:04 Hx Obtained From: Patient, Family/Living Coach Onset/Duration: Gradual Onset Timing: Constant Current Severity: Severe Dyspnea At: Rest Aggrevating Factors: Deep Breaths, Recumbent Position Alleviating Factors: Bronchodilators, Oxygen, Upright Position Associated Signs & Symptoms: Cough (Nonproductive) - Risk Factors Cardiac: Negative Pseudomonas: Negative Tuberculosis: Negative - Allergy/Home Medications Allergies/Adverse Reactions: Allergies Allergy/AdvReac Type Severity Reaction Status Date / Time codeine Allergy Unknown Unknown Verified 01/24/18 10:25 Reaction Details PMH/Surg Hx/FS Hx/Imm Hx Previously Healthy: Yes Endocrine/Hematology History: Reports: Hx Diabetes - TYPE 2- ON ORAL MEDICATION FOR, Hx Thyroid Disease - HYPOTHYROIDISM Cardiovascular History: Reports: Hx Hypertension - ON MEDICATION FOR Respiratory History: Reports: Hx Asthma - ROUTINE INHALERS FOR Comment Only: Hx Chronic Obstructive Pulmonary Disease (COPD) - unknown GI History: Reports: Hx Gastroesophageal Reflux Disease - TUMS History: Denies: Hx Renal Disease Musculoskeletal History: Reports: Hx Arthritis - HANDS Sensory History: Reports: Hx Cataracts - BILATERAL, Hx Contacts or Glasses - GLASSES-READING Denies: 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 1993- VAGINAL HYSTERECTOMY, [facility]. 1965 LAMINECTOMY, [facility]. TONSILLECTOMY. TUBAL LIGATION. RIGHT BOTTOM BACK TOOTH EXTRACTION, OFFICE. 05/2013-CATARACT BILATERAL Hx Anesthesia Reactions: No - Immunization History Hx Pertussis Vaccination: No Immunizations Up to Date: Yes Infectious Disease History: No Infectious Disease History: Denies: Traveled Outside the [place] in Last 30 Days - Family History Known Family History: Negative: Blood Disorder - Social History Occupation: Unemployed Lives: With Family Alcohol Use: None Hx Substance Use: No Substance Use Type: Reports: None Hx Tobacco Use: No Smoking Status (MU): Never Smoked Tobacco Review of Systems Negative: Fever, Chills, Fatigue, Skin Diaphoresis Negative: Palpitations, Chest Pain Positive: Shortness Of Breath, Cough Negative: Abdominal Pain, Vomiting, Diarrhea, Nausea Genitourinary: Negative Positive: no symptoms reported, see HPI Negative: Arthralgia, Myalgia Skin: Negative Neurological: Negative Negative: Anxious, Depressed All Other Systems Reviewed And Are Negative: Yes Physical Exam Triage Information Reviewed: Yes Vital Signs On Initial Exam: Initial Vitals Temp Pulse Resp BP Pulse Ox 99.6 F 125 40 133/101 85 03/29/18 06:55 03/29/18 06:55 03/29/18 06:55 03/29/18 06:55 03/29/18 06:55 Vital Signs Reviewed: Yes Appearance: Positive: Well-Nourished, Ill-Appearing - respiratory distress Skin: Positive: Warm, Skin Color Reflects Adequate Perfusion Head/Face: Positive: Normal Head/Face Inspection Eyes: Positive: EOMI, DESHAWN, Conjunctiva Clear Respiratory/Lung Sounds: Positive: Wheezes, Unable to speak in full sentences, Fatigue. Negative: Decreased Breath Sounds, Rales, Rhonchi, Stridor Cardiovascular: Positive: Pulses are Symmetrical in both Upper and Lower Extremities, Tachycardia Musculoskeletal: Positive: Normal, Strength/ROM Intact Neurological: Positive: Sensory/Motor Intact, Alert, Oriented to Person Place, Time, Speech Normal Psychiatric: Positive: Normal, Affect/Mood Appropriate AVPU Assessment: Alert Diagnostics - Vital Signs Vital Signs Temp Pulse Resp BP Pulse Ox 03/29/18 08:00 82 27 94 03/29/18 07:57 94 31 109/65 94 03/29/18 07:27 98 138/83 97 03/29/18 07:25 99 30 98 03/29/18 07:04 96 28 98 03/29/18 07:00 107 95 03/29/18 06:57 133/101 03/29/18 06:56 118 93 03/29/18 06:55 99.6 F 125 40 133/101 85 - Laboratory Lab Results: Lab Results 03/29/18 03/29/18 03/29/18 Range/Units 07:22 07:22 07:22 WBC 6.6 (3.5-10.8) 10^3/ul RBC 3.82 L (4.00-5.40) 10^6/ul Hgb 12.2 (12.0-16.0) g/dl Hct 36 (35-47) % MCV 95 (80-97) fL MCH 32 H (27-31) pg MCHC 34 (31-36) g/dl RDW 13 (10.5-15) % Plt Count 143 L (150-450) 10^3/ul MPV 8.3 (7.4-10.4) fL Neut % (Auto) 63.9 % Lymph % (Auto) 15.3 % Williams % (Auto) 7.9 % Eos % (Auto) 12.4 % Baso % (Auto) 0.5 % Absolute Neuts (auto) 4.2 (1.5-7.7) 10^3/ul Absolute Lymphs (auto) 1.0 (1.0-4.8) 10^3/ul Absolute Monos (auto) 0.5 (0-0.8) 10^3/ul Absolute Eos (auto) 0.8 H (0-0.6) 10^3/ul Absolute Basos (auto) 0 (0-0.2) 10^3/ul Absolute Nucleated RBC 0 10^3/ul Nucleated RBC % 0 INR (Anticoag Therapy) 0.98 (0.77-1.02) APTT 30.2 (26.0-36.3) seconds VBG pH (7.32-7.43) VBG pCO2 (41-51) mmHg VBG pO2 (35-45) mmHg VBG HCO3 (24-28) mmol/L VBG O2 Saturation (70-80) % VBG Base Excess (0.0-4.0) mmol/L Sodium 137 (135-145) mmol/L Potassium 4.2 (3.5-5.0) mmol/L Chloride 105 (101-111) mmol/L Carbon Dioxide 21 L (22-32) mmol/L Anion Gap 11 (2-11) mmol/L BUN 23 (6-24) mg/dL Creatinine 1.23 H (0.51-0.95) mg/dL Est GFR ( Amer) 50.6 (>60) Est GFR (Non-Af Amer) 41.8 (>60) BUN/Creatinine Ratio 18.7 (8-20) Glucose 242 H (70-100) mg/dL Lactic Acid (0.5-2.0) mmol/L Calcium 9.6 (8.6-10.3) mg/dL Total Bilirubin 1.10 H (0.2-1.0) mg/dL AST 24 (13-39) U/L ALT 16 (7-52) U/L Alkaline Phosphatase 84 (34-104) U/L CK-MB (CK-2) 4.5 (0.6-6.3) ng/mL Troponin I 0.01 (<0.04) ng/mL C-Reactive Protein 2.85 (<8.01) mg/L Total Protein 6.5 (6.4-8.9) g/dL Albumin 3.8 (3.2-5.2) g/dL Globulin 2.7 (2-4) g/dL Albumin/Globulin Ratio 1.4 (1-3) Influenza A (Rapid) (Negative) Influenza B (Rapid) (Negative) 03/29/18 03/29/18 03/29/18 Range/Units 07:22 07:26 08:02 WBC (3.5-10.8) 10^3/ul RBC (4.00-5.40) 10^6/ul Hgb (12.0-16.0) g/dl Hct (35-47) % MCV (80-97) fL MCH (27-31) pg MCHC (31-36) g/dl RDW (10.5-15) % Plt Count (150-450) 10^3/ul MPV (7.4-10.4) fL Neut % (Auto) % Lymph % (Auto) % Williams % (Auto) % Eos % (Auto) % Baso % (Auto) % Absolute Neuts (auto) (1.5-7.7) 10^3/ul Absolute Lymphs (auto) (1.0-4.8) 10^3/ul Absolute Monos (auto) (0-0.8) 10^3/ul Absolute Eos (auto) (0-0.6) 10^3/ul Absolute Basos (auto) (0-0.2) 10^3/ul Absolute Nucleated RBC 10^3/ul Nucleated RBC % INR (Anticoag Therapy) (0.77-1.02) APTT (26.0-36.3) seconds VBG pH 7.32 (7.32-7.43) VBG pCO2 40 L (41-51) mmHg VBG pO2 51.0 H (35-45) mmHg VBG HCO3 20.5 L (24-28) mmol/L VBG O2 Saturation 85.9 H (70-80) % VBG Base Excess -5.2 L (0.0-4.0) mmol/L Sodium (135-145) mmol/L Potassium (3.5-5.0) mmol/L Chloride (101-111) mmol/L Carbon Dioxide (22-32) mmol/L Anion Gap (2-11) mmol/L BUN (6-24) mg/dL Creatinine (0.51-0.95) mg/dL Est GFR ( Amer) (>60) Est GFR (Non-Af Amer) (>60) BUN/Creatinine Ratio (8-20) Glucose (70-100) mg/dL Lactic Acid 2.6 H* (0.5-2.0) mmol/L Calcium (8.6-10.3) mg/dL Total Bilirubin (0.2-1.0) mg/dL AST (13-39) U/L ALT (7-52) U/L Alkaline Phosphatase (34-104) U/L CK-MB (CK-2) (0.6-6.3) ng/mL Troponin I (<0.04) ng/mL C-Reactive Protein (<8.01) mg/L Total Protein (6.4-8.9) g/dL Albumin (3.2-5.2) g/dL Globulin (2-4) g/dL Albumin/Globulin Ratio (1-3) Influenza A (Rapid) Negative (Negative) Influenza B (Rapid) Negative (Negative) Result Diagrams: 03/29/18 07:22 03/29/18 07:22 Lab Statement: Any lab studies that have been ordered have been reviewed, and results considered in the medical decision making process. Re-Evaluation - Re-Evaluation First Eval Change: Improved - improved with vapotherm on 40 LPM and 36 O2 Second Eval Change: Worse - worse with removal of vaporthem to change to NC O2 Third Eval Change: Improved - Improved again with vapotherm 35 LPM; 30 O2 and 36 humidity Course/Dx - Course Course Of Treatment: Patient arrives to the ED with acute hypoxia. Immediately on arrival, she is noted to be 72% on room air, in severe respiratory distress with audible wheezing. Tachy at 127 and temp 99.7. Patient is placed on the monitor and EKG was obtained. She was given 4L O2 immediately on arrival and respiratory was called for Vapotherm treatment. She was placed on Vapotherm and 2 [id number] DuoNebs were administered. 2 lines obtained and patient was given magnesium sulfate 2 mg and Decadron 10 mg. Decreased WOB noted 5-10 minutes after Vapotherm. Sat 94% and tachy at 101. ABG attempted 3x without success, so VBG originally ordered. While pending, Dr. Dimas with US obtained successful ABG. Based on ABG, patient is in primary metabolic acidosis, with normal anion gap, with full respiratory compensation. Dimer 331. A-A O2 gradient calc shows low gradient with concern for decreased perfusion. CTA obtained on last visit, will likely repeat will defer to hospital team. Discussed case with Dr. Dowell who agrees to admit after trial discontinuation of VapoTherm and place on O2. Patient was observed on room air and immediately dropped to below 90%, she was then placed on 3 L and later increased to 4 L with a sat of 96%. She remains on this for 15 minutes before an increased WOB was obvious and patient continued to be in respiratory distress. Continued to sat at 94% however patient was in distress and Vapotherm was placed again. 35 LPM, 30 02 and 36 humidity. Again, decreased WOB is noted. Influenza negative. Called Dr. Dowell to make aware of unsuccessful response to NC O2. Vapotherm required, therefore will require admission to ICU. She is stable for discharge from the ED with Vapotherm in place. 2 more duo nebs given in the ED. Xray obtained shows no acute changes. - Diagnoses Differential Diagnosis/HQI/PQRI: Positive: Pneumonia, Pulmonary Embolism, Other - COPD exacerbation, asthma, severe respiratory distress Provider Diagnoses: Hypoxia, Respiratory distress - Physician Notifications Discussed Care of Patient With: Matthew Dowell Instructed by Provider To: Admit As Inpatient - Critical Care Time Critical Care Time: 30-74 min Discharge - Sign-Out/Discharge Documenting (check all that apply): Patient Departure All imaging exams completed and their final reports reviewed: Yes Patient Received Moderate/Deep Sedation with Procedure: No - Discharge Plan Condition: Fair Disposition: ADMITTED TO [facility] - Billing Disposition and Condition Condition: FAIR Disposition: Admitted to [facility]
[2018-03-29] MEDS ORDERED: Acetaminophen TAB* 325 MG PO PRN (08:24)
[2018-03-29] MEDS ORDERED: Ondansetron INJ* 2 MG/ML VIAL IV PRN (08:24)
[2018-03-29] MEDS ORDERED: Spiriva Inhaler DEVICE* 1 EACH DEVICE INH ONE (09:00)
[2018-03-29] MEDS ORDERED: Albuterol/Ipratropium NEB.SOL* Albuterol 2.5 MG/Ipratropium 0.5 MG 3 ML ONE (09:34)
[2018-03-29] MEDS: Albuterol/Ipratropium NEB.SOL* Albuterol 2.5 MG/Ipratropium 0.5 MG 3 ML INH PRN ×2 (09:35→10:14)
[2018-03-29] MEDS: Tiotropium CAP.INH* CAP.INH/18 MCG (USE ORDER SET !) INH SCH (10:50)
[2018-03-29] MEDS: Azithromycin IV(*) 500 MG in NS 0.9% 250 ML* 250 ML IVPB SCH (11:01)
[2018-03-29] MEDS: NS 0.9% 1000 ML** 1,000 ML IV SCH (11:01)
[2018-03-29] MEDS: Famotidine TAB* 20 MG PO SCH (11:52)
[2018-03-29] MEDS: glipiZIDE TAB* 5 MG PO SCH ×2 (11:52→20:33)
[2018-03-29] MEDS: Losartan TAB* 25 MG PO SCH (11:52)
[2018-03-29] MEDS: Aspirin EC TAB* 81 MG TAB.EC PO SCH (11:52)
[2018-03-29] MEDS: Metoprolol Tartrate TAB* 25 MG PO SCH ×2 (11:52→20:33)
[2018-03-29] MEDS: Cetirizine* 10 MG TAB PO SCH (11:52)
[2018-03-29] MEDS: methylPREDNISolone 125 MG* 2 ML VIAL IV SCH ×2 (11:53→19:05)
--- NOTE | 2018-03-29 12:59 | HP ---
CC: Dr. Flora Acosta HISTORY AND PHYSICAL: DATE OF ADMISSION: 03/29/18 TIME OF MY EVALUATION: 10 a.m. PRIMARY CARE PROVIDER: Dr. Flora Acosta. CHIEF COMPLAINT: Shortness or breath. HISTORY OF PRESENT ILLNESS: Ms. Price is an 83-year-old female with a past medical history of COPD with a hospitalization in December to January 2018 who now re-presents with shortness of breath of the same variety she has been suffering over the past few months. The patient developed shortness breath over the past few months and was hospitalized in December 2017 secondary to a COPD exacerbation and possibly bronchitis. She required Vapotherm therapy at the point of that admission and did not tolerate BiPAP. She was hypoxic initially (hypoxic respiratory failure ) and was slowly weaned off oxygen with the assistance of IV steroids and antibiotics. She was discharged home with instructions to consult with Pulmonology and Cardiology. She was referred to Cardiology for a stress test given her diastolic CHF. The patient has not followed up with Pulmonology nor Cardiology for unclear reasons. She now re-presents with several days of shortness of breath. She denies any chest pain. She does not report any recent fever or chills or sputum production. She is mildly orthostatic. She had a chest x-ray in the emergency room, which did not show any parenchymal edema or infiltrate. She does not have significant lower extremity edema. Her labs are not especially noteworthy ; she has a normal white blood cell count and generally normal electrolytes. Her creatinine is elevated relative to her baseline but only mildly. She did have an elevated lactic acid at 2.6, but this was consistent with previous lactic acids at the time of her other admissions. Ms. Price is substantially tachypneic and tachycardic. She is afebrile with an initial temperature measured at 98.1. She was using accessory muscles of respiration and was referred for admission for Acute hypoxic respiratory failure and acute COPD exacerbation. She is being admitted to the ICU and has already received IV steroids and antibiotics in the emergency room. She is on Vapotherm and an fancy wire drawer consult was placed. PAST MEDICAL HISTORY: 1. COPD/no personal smoking history/extensive secondhand smoke exposure. She did not appreciate her COPD condition before the prior admission in late 2017. 2. Asthma. 3. Type 2 diabetes - [id number]. 4. Hypertension. 5. Hypothyroidism. PAST SURGICAL HISTORY: Includes: 1. Right carpal tunnel release. 2. Bilateral cataract extractions. 3. Tonsillectomy. 4. Laminectomy. 5. . 6. Hysterectomy. OUTPATIENT MEDICATIONS: 1. Albuterol HFA inhaler 2 puffs every 4 hours as needed for shortness of breath. 2. Albuterol sulfate nebulizer 1.25 mg strength 4 times daily as needed for shortness of breath. 3. Metformin 500 mg by mouth twice daily. 4. Aspirin 81 mg by mouth daily. 5. Pepcid 20 mg by mouth daily. 6. Glucotrol 10 mg by mouth twice daily. 7. Synthroid 100 mcg by mouth daily. 8. Claritin 10 mg by mouth daily. 9. Cozaar/losartan 25 mg by mouth daily. 10. Metoprolol 25 mg by mouth every 12 hours. 11. Spiriva 1 capsule inhaled daily. ALLERGIES: Include CODEINE (adverse reaction). FAMILY HISTORY: Her mother in the mid 90s of old age, dad at the age of 67 from COPD and diabetes. SOCIAL HISTORY: The patient is a lifelong nonsmoker but has extensive secondhand smoke. She is a retired nurse. She is . She has 1 child. She has a healthcare proxy - son Calderon. REVIEW OF SYSTEMS: The patient was questioned about 14 systems and there were no pertinent positives other than what I mentioned above in the HPI and past medical history. Specifically, there are no recent fevers or chills or sputum production. She has ongoing poor appetite. She has mild weight loss. She has a PCP. PHYSICAL EXAMINATION GENERAL APPEARANCE: Ms. Price is an elderly-appearing woman, appears stated age. She is well developed, sitting up in the ICU. VITAL SIGNS: On admission, temperature 98.1 to 99.4 degrees Fahrenheit, pulse low 100s, respirations 30 to 40 with accessory muscle use noted, but not in acute distress and able to communicate, oxygen saturation 96% on Vapotherm (30% oxygen), blood pressure 120s to 140s over 70s to 80s. HEENT: Pupils equal, round, and reactive to light and accommodation. History of prior cataract extraction. NECK: Supple. No elevated JVD. Thyroid not enlarged. PULMONARY: Breath sounds diminished in all lung bob with diffuse wheezing throughout, particularly in the upper bob. Very tachypneic. CARDIAC: Normal S1 and S2. Tachycardic but regular. ABDOMEN: Bowel sounds are present. Abdomen is soft, nontender, and nondistended. MUSCULOSKELETAL: No cyanosis, clubbing, or edema. She has mild (1+) edema - but not more than previously noted. NEUROLOGICAL: Her exam is unremarkable with cranial nerves intact with sensation and motor function intact bilaterally, although the patient was not ambulated secondary to her respiratory concerns. SKIN: Warm and dry. PSYCH: Normal affect. No acute anxiety or depression. Reasonable medical recall. Poor insight with respect to her medical care despite being a nurse. ADMISSION DATA: White blood cell count 6.6, hemoglobin 12.2, platelets 143. INR 0.98. D-dimer 331 (elevated). Blood gas, pH 7.31, pCO2 37, pO2 105. Her blood chemistries are generally unremarkable save a carbon dioxide that is modestly low at 21, creatinine of 1.23 (most recent value 1.16 in January 2018) , glucose 242 (known diabetes, received steroids in the emergency room). Lactic acid 2.6 (was frequently elevated during previous hospitalization). Total bilirubin 1.1. AST and ALT are normal. CK-MB and troponin are both normal. Albumin and total protein are both normal. Her influenza A and B were negative. IMAGING: Chest x-ray showed no pulmonary parenchymal disease. IMPRESSION: Ms. Price is an 83-year-old female likely with a recurrent episode of bronchitis and resultant chronic obstructive pulmonary disease exacerbations, although an additional pathology cannot be ruled out at this time. The patient is on Vapotherm and being placed in the ICU. She is going to continue with periodic IV steroids and scheduled DuoNeb therapy. Admitting diagnoses: ACUTE HYPOXIC RESPIRATORY FAILURE secondary to ACUTE COPD EXACERBATION. The patient is full code that will be confirmed with the patient and a MOLST will be completed. The patient's diabetes will be controlled with sliding-scale insulin and A1c will be added to her lab work. The patient will be re-referred to outpatient Pulmonology and Cardiology. The patient's status is inpatient owing to the history of a 5-day admission with a similar presentation and her need for Vapotherm and acute/ICU monitoring. Request fancy wire drawer consultation - spoke to Dr. Overton directly on this request and he kindly agreed to see this patient. TIME SPENT: Total time taken to admit Ms. Price was 75 minutes, greater than half that time spent at the bedside going over the history and physical examination and explaining the hospital plan of care to the patient including the need for IV steroids, IV antibiotics, close ICU monitoring, and ongoing DuoNeb therapy. [id number]/[facility] #: [id number] [id number]
[2018-03-29] MEDS: Heparin VIAL(*) 5000 UNITS/ML VIAL (FIVE THOUSAND) SUBCUT SCH ×2 (15:09→20:33)
[2018-03-29] MEDS ORDERED: Dextrose 50% Syringe 50 ML* 25 GM/50 ML SYRINGE IV PUSH PRN (15:39)
--- NOTE | 2018-03-29 15:50 | CONSULT ---
Consult Consult: Consultation Note -- Critical Care Requesting Physician: Dr Matthew Dowell Reason for consult: Acute hypoxic resp failure, Acute COPD exaccerbation Limitations in history/physical: none Date of consult: 03/29/2018 HPI: 83y F w/pmhx of DM, HTN, COPD, hypothyroidism; Patient last admitted 2017 for resp distress and suspected COPD exaccerbation, never diagnosed before , did not have smoking history. She was treated with steroids, empiric IV abx and improved and discharged but no followup with pulmonary because she did not go. She returns to the ER 03/29 for increasing dyspnea for 2 weeks. She denies fever/chills/cough, no sick contacts, no diarrhea/abd pain/chest pain. in ER tmax 99.6, tachycardic 125, RR 40, sat 85% on RA, BP 133/101. Started on NC, then vapotherm, given magnesium, steroids, nebulizers with some improvement. Admitted to ICU, continued wheezing in ICU, called for eval of further respiratory failure and bronchospasm. ROS: negative except for pertinent positives mentioned above. 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 Allergies: Allergies Allergy/AdvReac Type Severity Reaction Status Date / Time codeine Allergy Unknown Unknown Verified 01/24/18 10:25 Reaction Details Home Medications: Albuterol HFA INHALER* [Ventolin HFA Inhaler*] 2 puff INH Q4H PRN 01/22/18 [ History Confirmed 03/29/18] Albuterol Sulfate 1.25 mg INH QID PRN 01/22/18 [History Confirmed 03/29/18] Levothyroxine TAB* [Synthroid 100 MCG TAB*] 100 mcg PO DAILY 01/22/18 [History Confirmed 03/29/18] LoraTADine TAB(NF) [Claritin 10 MG TAB(NF)] 10 mg PO DAILY 01/22/18 [History Confirmed 03/29/18] Losartan TAB* [Cozaar TAB*] 25 mg PO DAILY 01/22/18 [History Confirmed 03/29/18] glipiZIDE TAB* [Glucotrol TAB*] 10 mg PO BID 01/22/18 [History Confirmed ] metFORMIN* [Glucophage 500 MG TAB *] 500 mg PO BID 01/22/18 [History Confirmed 03/29/18] Aspirin EC TAB* [Ecotrin EC Low Dose 81 MG*] 81 mg PO DAILY #30 tab.ec 01/27/18 [Rx Confirmed 03/29/18] Famotidine TAB* [Pepcid 20 MG TAB*] 20 mg PO DAILY #10 tab 01/27/18 [Rx Confirmed 03/29/18] Metoprolol Tartrate TAB* [Lopressor TAB*] 25 mg PO Q12HR #60 tab 01/27/18 [Rx Confirmed 03/29/18] Tiotropium CAP.INH* [Spiriva CAP.INH*] 1 cap INH DAILY #30 cap.inh 01/27/18 [Rx Confirmed 03/29/18] Tele: sinus tachy Vitals: Vital Signs Temp 99.4 F 03/29/18 10:11 Pulse 86 03/29/18 15:02 Resp 23 03/29/18 15:02 BP 125/63 03/29/18 15:02 Pulse Ox 94 03/29/18 15:02 Intake & Output 03/28/18 03/29/18 03/29/18 18:59 06:59 18:59 Intake Total 1856 Output Total 400 Balance 1456 Weight 65.771 kg 64 kg Intake: IV Fluids 1496 NS (0.9%) 446 Oral 360 Output: Urine 400 O2/Vent: hiflow 40% 30 lpm ; sats 95% Infusions: heplock Current Medications: Acetaminophen (Tylenol Tab*) 650 mg PO Q4H PRN PRN Reason: FEVER/PAIN Albuterol/Ipratropium (Duoneb (Albuterol 2.5 Mg/Ipratropium 0.5 Mg)) 1 neb INH [id number] AWAKE PRN PRN Reason: sob/wheexing Last Admin: 03/29/18 10:14 Dose: 1 neb Aspirin (Aspirin Ec Tab*) 81 mg PO DAILY [facility]TON[facility] Last Admin: 03/29/18 11:52 Dose: 81 mg Cetirizine HCl (Zyrtec*) 10 mg PO DAILY [facility] Last Admin: 03/29/18 11:52 Dose: 10 mg Dextrose (D50w Syringe 50 Ml*) 12.5 gm IV PUSH .FOR FS < 60 - SS PRN PRN Reason: FS < 60 Famotidine (Pepcid Tab*) 20 mg PO DAILY [facility] Last Admin: 03/29/18 11:52 Dose: 20 mg Glipizide (Glucotrol Tab*) 10 mg PO BID [facility] Last Admin: 03/29/18 11:52 Dose: Not Given Heparin Sodium (Porcine) (Heparin Vial(*)) 5,000 units SUBCUT Q8HR [facility] Last Admin: 03/29/18 15:09 Dose: 5,000 units Azithromycin 500 mg/ Sodium (Chloride) 250 mls @ 250 mls/hr IVPB Q24H [facility] Last Admin: 03/29/18 11:01 Dose: 250 mls/hr Sodium Chloride (Ns 0.9% 1000 Ml) 1,000 mls @ 75 mls/hr IV PER RATE [facility] Last Admin: 03/29/18 11:01 Dose: 75 mls/hr Insulin Human Lispro (Humalog*) 0 units SUBCUT FS ACHS ICU [facility]; Protocol Levothyroxine Sodium (Synthroid Tab*) 100 mcg PO DAILY@0600 [facility] Losartan Potassium (Cozaar Tab*) 25 mg PO DAILY [facility] Last Admin: 03/29/18 11:52 Dose: Not Given Methylprednisolone Sodium Succinate (Solu-Medrol 125mg *) 60 mg IV Q8H [facility] Last Admin: 03/29/18 11:53 Dose: 60 mg Metoprolol Tartrate (Lopressor Tab*) 25 mg PO Q12HR [facility] Last Admin: 03/29/18 11:52 Dose: Not Given Ondansetron HCl (Zofran Inj*) 4 mg IV Q4H PRN PRN Reason: NAUSEA/VOMITING Tiotropium [place] (Spiriva Cap.Inh*) 1 cap INH DAILY [facility] Last Admin: 03/29/18 10:50 Dose: Not Given Physical Exam: General: awake, alert, mild resp distress+, no diaphoresis Head: normocephalic, atraumatic HEENT: no pallor, no icterus, moist mucous membranes Neck: soft, supple, no jvd, no stridor CVS: tachycardic+, regular, no murmur Resp: bilateral air entry, bilateral coarse wheezing+, no rhales, no rhonchi, no acc muscle use Abdomen: soft, nontender, nondistended, bowel sounds+ Ext: pulses+, warm, no edema Skin: intact Neuro: awake, alert, orientedx3, moving all extremities, no gross focal deficit Labs: Laboratory Results - last 24 hr 03/29/18 03/29/18 03/29/18 07:22 07:22 07:22 WBC 6.6 RBC 3.82 L Hgb 12.2 Hct 36 MCV 95 MCH 32 H MCHC 34 RDW 13 Plt Count 143 L MPV 8.3 Neut % (Auto) 63.9 Lymph % (Auto) 15.3 [place] % (Auto) 7.9 Eos % (Auto) 12.4 Baso % (Auto) 0.5 Absolute Neuts (auto) 4.2 Absolute Lymphs (auto) 1.0 Absolute Monos (auto) 0.5 Absolute Eos (auto) 0.8 H Absolute Basos (auto) 0 Absolute Nucleated RBC 0 Nucleated RBC % 0 INR (Anticoag Therapy) 0.98 APTT 30.2 D-Dimer, Quantitative 331 H ABG pH ABG pCO2 ABG pO2 ABG HCO3 ABG O2 Saturation ABG Base Excess VBG pH VBG pCO2 VBG pO2 VBG HCO3 VBG O2 Saturation VBG Base Excess Sodium 137 Potassium 4.2 Chloride 105 Carbon Dioxide 21 L Anion Gap 11 BUN 23 Creatinine 1.23 H Est GFR ( Amer) 50.6 Est GFR (Non-Af Amer) 41.8 BUN/Creatinine Ratio 18.7 Glucose 242 H Hemoglobin A1c Lactic Acid Calcium 9.6 Total Bilirubin 1.10 H AST 24 ALT 16 Alkaline Phosphatase 84 CK-MB (CK-2) 4.5 Troponin I 0.01 C-Reactive Protein 2.85 Total Protein 6.5 Albumin 3.8 Globulin 2.7 Albumin/Globulin Ratio 1.4 Influenza A (Rapid) Influenza B (Rapid) 03/29/18 03/29/18 03/29/18 07:22 07:22 07:26 WBC RBC Hgb Hct MCV MCH MCHC RDW Plt Count MPV Neut % (Auto) Lymph % (Auto) [place] % (Auto) Eos % (Auto) Baso % (Auto) Absolute Neuts (auto) Absolute Lymphs (auto) Absolute Monos (auto) Absolute Eos (auto) Absolute Basos (auto) Absolute Nucleated RBC Nucleated RBC % INR (Anticoag Therapy) APTT D-Dimer, Quantitative ABG pH ABG pCO2 ABG pO2 ABG HCO3 ABG O2 Saturation ABG Base Excess VBG pH VBG pCO2 VBG pO2 VBG HCO3 VBG O2 Saturation VBG Base Excess Sodium Potassium Chloride Carbon Dioxide Anion Gap BUN Creatinine Est GFR ( Amer) Est GFR (Non-Af Amer) BUN/Creatinine Ratio Glucose Hemoglobin A1c 6.5 H Lactic Acid 2.6 H* Calcium Total Bilirubin AST ALT Alkaline Phosphatase CK-MB (CK-2) Troponin I C-Reactive Protein Total Protein Albumin Globulin Albumin/Globulin Ratio Influenza A (Rapid) Negative Influenza B (Rapid) Negative 03/29/18 03/29/18 03/29/18 08:02 09:40 13:34 WBC RBC Hgb Hct MCV MCH MCHC RDW Plt Count MPV Neut % (Auto) Lymph % (Auto) [place] % (Auto) Eos % (Auto) Baso % (Auto) Absolute Neuts (auto) Absolute Lymphs (auto) Absolute Monos (auto) Absolute Eos (auto) Absolute Basos (auto) Absolute Nucleated RBC Nucleated RBC % INR (Anticoag Therapy) APTT D-Dimer, Quantitative ABG pH 7.31 L ABG pCO2 37 ABG pO2 105 H ABG HCO3 19.5 ABG O2 Saturation 99.7 H ABG Base Excess -7.0 L VBG pH 7.32 VBG pCO2 40 L VBG pO2 51.0 H VBG HCO3 20.5 L VBG O2 Saturation 85.9 H VBG Base Excess -5.2 L Sodium Potassium Chloride Carbon Dioxide Anion Gap BUN Creatinine Est GFR ( Amer) Est GFR (Non-Af Amer) BUN/Creatinine Ratio Glucose Hemoglobin A1c Lactic Acid 4.2 H* Calcium Total Bilirubin AST ALT Alkaline Phosphatase CK-MB (CK-2) Troponin I C-Reactive Protein Total Protein Albumin Globulin Albumin/Globulin Ratio Influenza A (Rapid) Influenza B (Rapid) Imaging: cxr 03/29 - no clear infiltrate/effusion noted Assessment: 83y F w/pmhx of DM, HTN, COPD, hypothyroidism; Patient last admitted 01/2018 for resp distress and suspected COPD exaccerbation, never diagnosed before, did not have smoking history. She was treated with steroids, empiric IV abx and improved and discharged but no followup with pulmonary because she did not go. She returns to the ER 2/4 for increasing dyspnea for 2 weeks. She denies fever/chills/cough, no sick contacts, no diarrhea/abd pain/ chest pain. in ER tmax 99.6, tachycardic 125, RR 40, sat 85% on RA, BP 133/101. Started on NC, then vapotherm, given magnesium, steroids, nebulizers with some improvement. Admitted to ICU, continued wheezing in ICU, called for eval of further respiratory failure and bronchospasm. -acute hypoxic respiratory failure -Acute COPD exaccerbation -LUZ MARINA DM HTN Plan: Neuro- stable. delirium prec. asp prec. CVS- BP stable. cont antihypertensives. NS 75cc/hr. -empiric IV abx azithro for pna/bronchitis coverage Resp- hypoxic, acute distress with diffuse bronchospasm; suspect acute COPD exacc -CXR without acute findings; no acute cough noted on exam -SPutum culture if able -IV abx -Solumedrol 60mg q8h -bronchodilators q4h and PRN -cont Vapotherm 40% 30lpm; improved with some treatements. may require NIV support if worsening. ID- afebrile. wbc 6. CXR clear of infiltrate. Empiric coverage with azithromycin IV. check strep/legionella urine ag. GI- diabetic diet. h2b for proph. asp prec. Renal- mild LUZ MARINA noted. K okay. Noted LA upto 4.2. Previous admissions had the same, LA eelvation, may be from catecholamine use/bronchodilator us. Hemodyn stable. IVF NS 75cc/hr okay. Reynoso+ Heme- anemia, hg 11-12. stable -plt okay Endo- cont synthroid. check FS achs, add sliding scale insulin for now. noted to be on high steroids for COPD exacc. Musculsk- pressure ulcer prophylaxis. Bedrest. Wounds- none Nutrition- diabetic diet DVT prophylaxis: heparin sq, SCDs GI prophylaxis: h2b Central Line: no Arterial Line: no Reynoso Cathetor: no Disposition: Patient requires Critical Care/ICU for acute hypoxic resp failure , COPD exaccerbation Patient Clinical Status: critical, not stable Code Status: full code Total Critical Care time is 40 minutes, excluding procedures/teaching Castillo Overton MD Metal Eng[employer] (Electronically Signed)
[2018-03-29] MEDS: Insulin LISPRO* 1 UNITS UNIT SUBCUT SCH ×2 (16:59→20:55)
[2018-03-29 21:20] LABS: Urine Appearance Clear; Urine Bacteria 1+ (Absent); Urine Bilirubin Negative (Negative); Urine Blood Negative (Negative); Urine Color Yellow; Urine Glucose 3+(>=500 mg/dL) (Negative); Urine Ketones Trace (Negative); Urine Nitrite Negative (Negative); Urine Protein Negative (Negative); Urine Red Blood Cell Trace(0-2/hpf) (Absent); Urine Specific Gravity 1.014 (1.010-1.030); Urine Squamous Epithelial Cell Present (Absent); Urine Urobilinogen Negative (Negative); Urine White Blood Cell Trace(0-5/hpf) (Absent)
[2018-03-30] MEDS: NS 0.9% 1000 ML** 1,000 ML IV SCH (02:01)
[2018-03-30] MEDS: methylPREDNISolone 125 MG* 2 ML VIAL IV SCH ×3 (02:27→19:56)
[2018-03-30] MEDS: Albuterol/Ipratropium NEB.SOL* Albuterol 2.5 MG/Ipratropium 0.5 MG 3 ML INH PRN ×3 (03:19→11:07)
[2018-03-30] MEDS: Heparin VIAL(*) 5000 UNITS/ML VIAL (FIVE THOUSAND) SUBCUT SCH ×3 (05:27→20:57)
[2018-03-30] MEDS: Levothyroxine TAB* 100 MCG TAB PO SCH (05:28)
[2018-03-30 06:34] LABS: ABS Basophils 0 10^3/ul (0-0.2); ABS Eosinophils 0 10^3/ul (0-0.6); ABS Lymphocytes 0.5 10^3/ul (1.0-4.8); ABS Monocytes 0.2 10^3/ul (0-0.8); ABS Neutrophils 6.6 10^3/ul (1.5-7.7); ABS Nucleated RBC 0 10^3/ul; Eosinophil % 0 %; Hematocrit 33 % (35-47); Lymphocyte % 7.2 %; Mean Corpuscular HGB Conc 34 g/dl (31-36); Mean Corpuscular Hemoglobin 32 pg (27-31); Mean Corpuscular Volume 95 fL (80-97); Mean Platelet Volume 8.2 fL (7.4-10.4); Nucleated Red Blood Cells % 0; Platelet Count 125 10^3/ul (150-450); Red Blood Count 3.44 10^6/ul (4.00-5.40); Red Cell Distribution Width 13 % (10.5-15); White Blood Count 7.3 10^3/ul (3.5-10.8)
[2018-03-30 06:56] LABS: BUN/Creatinine Ratio 27.5 (8-20); Calcium 9.4 mg/dL (8.6-10.3); EGFR African American 58.1 (>60); EGFR Non-African American 48.1 (>60); Potassium 4.5 mmol/L (3.5-5.0)
[2018-03-30] MEDS: Insulin LISPRO* 1 UNITS UNIT SUBCUT SCH ×4 (08:03→20:58)
[2018-03-30] MEDS: Aspirin EC TAB* 81 MG TAB.EC PO SCH (08:04)
[2018-03-30] MEDS: Metoprolol Tartrate TAB* 25 MG PO SCH ×2 (08:04→20:58)
[2018-03-30] MEDS: Losartan TAB* 25 MG PO SCH (08:04)
[2018-03-30] MEDS: glipiZIDE TAB* 5 MG PO SCH ×2 (08:04→21:03)
[2018-03-30] MEDS: Cetirizine* 10 MG TAB PO SCH (08:04)
[2018-03-30] MEDS: Famotidine TAB* 20 MG PO SCH (08:04)
[2018-03-30] MEDS: Tiotropium CAP.INH* CAP.INH/18 MCG (USE ORDER SET !) INH SCH (09:15)
[2018-03-30] MEDS: Azithromycin IV(*) 500 MG in NS 0.9% 250 ML* 250 ML IVPB SCH (10:49)
--- NOTE | 2018-03-30 14:05 | PN ---
Progress Note - Progress Note Date of Service: 03/30/18 Note: Progress Note -- Critical Care 24 hour events -off hiflow; on NC 3 L now; sats 90s -cough mild, no sputum; still wheezing+ but less than yesterday -speaking+ -making urine -afebrile Tele: NSR Vitals: Vital Signs Temp 98.1 F 03/30/18 12:00 Pulse 83 03/30/18 13:31 Resp 21 03/30/18 13:31 BP 105/60 03/30/18 13:31 Pulse Ox 97 03/30/18 13:31 Intake & Output 03/29/18 03/30/18 03/30/18 18:59 06:59 18:59 Intake Total 1856 1551 900 Output Total 800 1000 850 Balance 1056 551 50 Weight 64 kg 64.637 kg Intake: IV Fluids 1496 1131 NS (0.9%) 446 1131 Oral 360 420 900 Output: Urine 800 1000 850 O2/Vent: NC 3 L Infusions: NS 75cc/hr; d/c now Current Medications: Acetaminophen (Tylenol Tab*) 650 mg PO Q4H PRN PRN Reason: FEVER/PAIN Albuterol/Ipratropium (Duoneb (Albuterol 2.5 Mg/Ipratropium 0.5 Mg)) 1 neb INH [id number] AWAKE [facility] Aspirin (Aspirin Ec Tab*) 81 mg PO DAILY [facility] Last Admin: 03/30/18 08:04 Dose: 81 mg Cetirizine HCl (Zyrtec*) 10 mg PO DAILY [facility] Last Admin: 03/30/18 08:04 Dose: 10 mg Dextrose (D50w Syringe 50 Ml*) 12.5 gm IV PUSH .FOR FS < 60 - SS PRN PRN Reason: FS < 60 Famotidine (Pepcid Tab*) 20 mg PO DAILY [facility] Last Admin: 03/30/18 08:04 Dose: 20 mg Glipizide (Glucotrol Tab*) 10 mg PO BID [facility] Last Admin: 03/30/18 08:04 Dose: 10 mg Heparin Sodium (Porcine) (Heparin Vial(*)) 5,000 units SUBCUT Q8HR [facility] Last Admin: 03/30/18 05:27 Dose: 5,000 units Azithromycin 500 mg/ Sodium (Chloride) 250 mls @ 250 mls/hr IVPB Q24H [facility] Last Admin: 03/30/18 10:49 Dose: 250 mls/hr Insulin Human Lispro (Humalog*) 0 units SUBCUT FS ACHS ICU [facility]; Protocol Last Admin: 03/30/18 12:21 Dose: 4 unit Levothyroxine Sodium (Synthroid Tab*) 100 mcg PO DAILY@0600 [facility] Last Admin: 03/30/18 05:28 Dose: 100 mcg Losartan Potassium (Cozaar Tab*) 25 mg PO DAILY [facility] Last Admin: 03/30/18 08:04 Dose: 25 mg Methylprednisolone Sodium Succinate (Solu-Medrol 125mg *) 60 mg IV Q8H [facility] Last Admin: 03/30/18 10:50 Dose: 60 mg Metoprolol Tartrate (Lopressor Tab*) 25 mg PO Q12HR [facility] Last Admin: 03/30/18 08:04 Dose: 25 mg Ondansetron HCl (Zofran Inj*) 4 mg IV Q4H PRN PRN Reason: NAUSEA/VOMITING Tiotropium [place] (Spiriva Cap.Inh*) 1 cap INH DAILY [facility] Last Admin: 03/30/18 09:15 Dose: Not Given Physical Exam: General: awake, alert, no resp distress, no diaphoresis Head: normocephalic, atraumatic HEENT: no pallor, no icterus, moist mucous membranes Neck: soft, supple, no jvd, no stridor CVS:normal rate, regular, no murmur Resp: bilateral air entry, bilateral finer wheeze+, no rhales, no rhonchi, no acc muscle use Abdomen: soft, nontender, nondistended, bowel sounds+ Ext: pulses+, warm, no edema Skin: intact Neuro: awake, alert, orientedx3, moving all extremities Labs: Laboratory Results - last 24 hr 03/29/18 03/29/18 03/29/18 13:34 16:41 20:01 WBC RBC Hgb Hct MCV MCH MCHC RDW Plt Count MPV Neut % (Auto) Lymph % (Auto) [place] % (Auto) Eos % (Auto) Baso % (Auto) Absolute Neuts (auto) Absolute Lymphs (auto) Absolute Monos (auto) Absolute Eos (auto) Absolute Basos (auto) Absolute Nucleated RBC Nucleated RBC % Sodium Potassium Chloride Carbon Dioxide Anion Gap BUN Creatinine Est GFR ( Amer) Est GFR (Non-Af Amer) BUN/Creatinine Ratio Glucose POC Glucose (mg/dL) 321 H Lactic Acid 4.2 H* 4.9 H* Calcium Urine Color Urine Appearance Urine pH Ur Specific [place] Urine Protein Urine Ketones Urine Blood Urine Nitrate Urine Bilirubin Urine Urobilinogen Ur Leukocyte Esterase Urine WBC (Auto) Urine RBC (Auto) Ur Squamous Epith Cells Urine Bacteria Urine Glucose 03/29/18 03/29/18 03/30/18 20:46 21:06 06:21 WBC 7.3 RBC 3.44 L Hgb 11.0 L Hct 33 L MCV 95 MCH 32 H MCHC 34 RDW 13 Plt Count 125 L MPV 8.2 Neut % (Auto) 90.3 Lymph % (Auto) 7.2 [place] % (Auto) 2.5 Eos % (Auto) 0 Baso % (Auto) 0 Absolute Neuts (auto) 6.6 Absolute Lymphs (auto) 0.5 L Absolute Monos (auto) 0.2 Absolute Eos (auto) 0 Absolute Basos (auto) 0 Absolute Nucleated RBC 0 Nucleated RBC % 0 Sodium Potassium Chloride Carbon Dioxide Anion Gap BUN Creatinine Est GFR ( Amer) Est GFR (Non-Af Amer) BUN/Creatinine Ratio Glucose POC Glucose (mg/dL) 276 H Lactic Acid Calcium Urine Color Yellow Urine Appearance Clear Urine pH 5.0 Ur Specific [place] 1.014 Urine Protein Negative Urine Ketones Trace A Urine Blood Negative Urine Nitrate Negative Urine Bilirubin Negative Urine Urobilinogen Negative Ur Leukocyte Esterase 1+ A Urine WBC (Auto) Trace(0-5/hpf) Urine RBC (Auto) Trace(0-2/hpf) Ur Squamous Epith Cells Present A Urine Bacteria 1+ A Urine Glucose 3+(>=500 mg/dl) A 03/30/18 03/30/18 03/30/18 06:21 07:53 12:14 WBC RBC Hgb Hct MCV MCH MCHC RDW Plt Count MPV Neut % (Auto) Lymph % (Auto) [place] % (Auto) Eos % (Auto) Baso % (Auto) Absolute Neuts (auto) Absolute Lymphs (auto) Absolute Monos (auto) Absolute Eos (auto) Absolute Basos (auto) Absolute Nucleated RBC Nucleated RBC % Sodium 134 L Potassium 4.5 Chloride 106 Carbon Dioxide 21 L Anion Gap 7 BUN 30 H Creatinine 1.09 H Est GFR ( Amer) 58.1 Est GFR (Non-Af Amer) 48.1 BUN/Creatinine Ratio 27.5 H Glucose 218 H POC Glucose (mg/dL) 211 H 213 H Lactic Acid Calcium 9.4 Urine Color Urine Appearance Urine pH Ur Specific [place] Urine Protein Urine Ketones Urine Blood Urine Nitrate Urine Bilirubin Urine Urobilinogen Ur Leukocyte Esterase Urine WBC (Auto) Urine RBC (Auto) Ur Squamous Epith Cells Urine Bacteria Urine Glucose Imaging: cxr 03/29 - no clear infiltrate/effusion noted Assessment: 83y F w/pmhx of DM, HTN, COPD, hypothyroidism; Patient last admitted 01/2018 for resp distress and suspected COPD exaccerbation, never diagnosed before, did not have smoking history. She was treated with steroids, empiric IV abx and improved and discharged but no followup with pulmonary because she did not go. She returns to the ER 03/29 for increasing dyspnea for 2 weeks. She denies fever/chills/cough, no sick contacts, no diarrhea/abd pain/ chest pain. in ER tmax 99.6, tachycardic 125, RR 40, sat 85% on RA, BP 133/101. Started on NC, then vapotherm, given magnesium, steroids, nebulizers with some improvement. Admitted to ICU, continued wheezing in ICU, called for eval of further respiratory failure and bronchospasm. -acute hypoxic respiratory failure -Acute COPD exaccerbation -LUZ MARINA DM HTN Plan: Neuro- stable. delirium prec. asp prec. CVS- BP stable. cont antihypertensives. d/c ivf. -empiric IV abx azithro for pna/bronchitis coverage Resp- hypoxic, acute distress with diffuse bronchospasm; suspect acute COPD exacc -still wheezing today but less than yesterday; off hiflow today on NC -cont Solumedrol 60mg q8h -bronchodilators q4h and PRN -SPutum culture if able -IV abx ID- afebrile. wbc 7. CXR clear of infiltrate. On steroids. Empiric coverage with azithromycin IV. strep/legionella urine ag neg GI- diabetic diet. h2b for proph. asp prec. Renal- mild LUZ MARINA improved now. K okay. Noted [place] upto 4.9, no hemodyn change, suspect this to be from albuterol/catecholamine use. Previous admissions had the same, LA eelvation. Hemodyn stable. d/c IVF, tolerating Po intake. can probably d/c Reynoso+ today Heme- anemia, hg 11-12. stable -plt okay Endo- cont synthroid. check FS achs, add sliding scale insulin. noted to be on high steroids for COPD exacc. Musculsk- pressure ulcer prophylaxis. Bedrest. Wounds- none Nutrition- diabetic diet DVT prophylaxis: heparin sq, SCDs GI prophylaxis: h2b Central Line: no Arterial Line: no [place] Cathetor: no Disposition: Patient requires Critical Care/ICU for acute hypoxic resp failure , COPD exaccerbation Patient Clinical Status: guarded Code Status: full code Total Critical Care time is 35 minutes, excluding procedures/teaching Castillo Overton MD Electrophysiology Tech (Electronically Signed)
[2018-03-30] MEDS: Albuterol/Ipratropium NEB.SOL* Albuterol 2.5 MG/Ipratropium 0.5 MG 3 ML INH SCH ×3 (14:53→22:58)
--- NOTE | 2018-03-30 18:16 | PN ---
Subjective Date of Service: 03/30/18 Interval History: . Interviewed and examined patient at bedside; Discussed case with Dr. Overton; Reviewed previous notes and radiology results; did better overnight, less dyspnea. still requiring vapotherm in AM; then weaned off after breathing treatments. speaking clearly -- wants to go home, though realizes she is far too weak. Pt is afebrile and reports no chest pain. . Family History: Unchanged from Admission Social History: Unchanged from Admission Past Medical History: Unchanged from Admission Objective Active Medications: . Acetaminophen (Tylenol Tab*) 650 mg PO Q4H PRN PRN Reason: FEVER/PAIN Albuterol/Ipratropium (Duoneb (Albuterol 2.5 Mg/Ipratropium 0.5 Mg)) 1 neb INH [id number] AWAKE [facility] Last Admin: 03/30/18 14:53 Dose: 1 neb Aspirin (Aspirin Ec Tab*) 81 mg PO DAILY [facility] Last Admin: 03/30/18 08:04 Dose: 81 mg Cetirizine HCl (Zyrtec*) 10 mg PO DAILY [facility] Last Admin: 03/30/18 08:04 Dose: 10 mg Dextrose (D50w Syringe 50 Ml*) 12.5 gm IV PUSH .FOR FS < 60 - SS PRN PRN Reason: FS < 60 Famotidine (Pepcid Tab*) 20 mg PO DAILY [facility] Last Admin: 03/30/18 08:04 Dose: 20 mg Glipizide (Glucotrol Tab*) 10 mg PO BID [facility] Last Admin: 03/30/18 08:04 Dose: 10 mg Heparin Sodium (Porcine) (Heparin Vial(*)) 5,000 units SUBCUT Q8HR [facility] Last Admin: 03/30/18 14:51 Dose: 5,000 units Azithromycin 500 mg/ Sodium (Chloride) 250 mls @ 250 mls/hr IVPB Q24H [facility] Last Admin: 03/30/18 10:49 Dose: 250 mls/hr Insulin Human Lispro (Humalog*) 0 units SUBCUT FS ACHS ICU [facility]; Protocol Last Admin: 03/30/18 17:32 Dose: 6 unit Levothyroxine Sodium (Synthroid Tab*) 100 mcg PO DAILY@0600 [facility] Last Admin: 03/30/18 05:28 Dose: 100 mcg Losartan Potassium (Cozaar Tab*) 25 mg PO DAILY [facility] Last Admin: 03/30/18 08:04 Dose: 25 mg Methylprednisolone Sodium Succinate (Solu-Medrol 125mg *) 60 mg IV Q8H [facility] Last Admin: 03/30/18 10:50 Dose: 60 mg Metoprolol Tartrate (Lopressor Tab*) 25 mg PO Q12HR [facility] Last Admin: 03/30/18 08:04 Dose: 25 mg Ondansetron HCl (Zofran Inj*) 4 mg IV Q4H PRN PRN Reason: NAUSEA/VOMITING Tiotropium [place] (Spiriva Cap.Inh*) 1 cap INH DAILY [facility] Last Admin: 03/30/18 09:15 Dose: Not Given Vital Signs - 8 hr 03/30/18 03/30/18 03/30/18 10:00 11:00 11:07 Temperature Pulse Rate 74 73 73 Respiratory 19 17 20 Rate Blood Pressure (mmHg) O2 Sat by Pulse 100 98 100 Oximetry 03/30/18 03/30/18 03/30/18 11:10 12:00 12:01 Temperature 98.1 F Pulse Rate 74 78 75 Respiratory 19 17 19 Rate Blood Pressure 133/71 111/57 (mmHg) O2 Sat by Pulse 100 96 96 Oximetry Oxygen Devices in Use Now: Nasal Cannula, High Flow Heated Nasal Cannula Appearance: elderly and frail; no active distress. Eyes: No Scleral Icterus Ears/Nose/Mouth/Throat: Clear Oropharnyx Respiratory: Symmetrical Chest Expansion and Respiratory Effort, - - distant sounds; + wheezing throughout all lung bob Abdominal: NL Sounds; No Tenderness; No Distention Lymphatic: No Cervical Adenopathy Skin: No Rash or Ulcers Neurological: Alert and Oriented x 3 Lines/Tubes/Other Access: Clean, Dry and Intact Peripheral IV Nutrition: Taking PO's Result Diagrams: 03/30/18 06:21 03/30/18 06:21 Microbiology and Other Data: Microbiology 03/29/18 21:06 Legionella Urinary Antigen - Final Urine Negative Legionella Antigen Streptococcus pneumoniae Ag Screen - Final Negative S. pneumo Antigen 03/29/18 10:15 Nasal Screen MRSA (PCR) - Final Nasal Mrsa Not Detected 03/29/18 07:10 Influenza Types A,B Antigen - Final Nasal Specimen received for Influenza A/B Molecular testing Assess/Plan/Problems-Billing . Assessment: 83 y.o. female with h/o COPD, DM, HTN, hypothyroidism now admitted with acute hypoxic respirtory failure requiring NIPPV/vapotherm. IV steroids / IV Abx nebulizers ongoing --> patient is delicate and improving slowly. . - Patient Problems (1) Acute hypoxemic respiratory failure Current Visit: No Status: Acute Priority: High Code(s): J96.01 - ACUTE RESPIRATORY FAILURE WITH HYPOXIA Comment: - Secondary to COPD/CHF exacerbation. - Still requiring intermittent vapotherm (PP) - improving slowly - nebs for bronchodilitation (2) COPD exacerbation Current Visit: No Status: Acute Priority: High Code(s): J44.1 - CHRONIC OBSTRUCTIVE PULMONARY DISEASE W (ACUTE) EXACERBATION Comment: - Reports h/o COPD - secondary to bronchitis. - Continue bronchodilators, steroids, and Zithromax. - Pt has nebulizer machine at home. - Will need PFTs / pulmonary consultation as outpatient. (3) Anemia Current Visit: Yes Status: Chronic Priority: Medium Code(s): D64.9 - ANEMIA, UNSPECIFIED Comment: - hgb stable (4) Hypothyroidism Current Visit: Yes Status: Chronic Priority: Medium Code(s): E03.9 - HYPOTHYROIDISM, UNSPECIFIED Comment: - continue op synthroid dose (5) Diabetes Current Visit: No Status: Acute Priority: High Code(s): E11.9 - TYPE 2 DIABETES MELLITUS WITHOUT COMPLICATIONS Comment: - Lispro SSI
[2018-03-30] MEDS ORDERED: Terbutaline INJ* 1 MG/ML VIAL SUBCUT ONE (19:59)
[2018-03-31] MEDS ORDERED: Albuterol 2.5 MG/3 ML NEB.SOL* (0.083%) INH PRN (00:42)
[2018-03-31] MEDS ORDERED: Albuterol 2.5 MG/3 ML NEB.SOL* (0.083%) INH ONE (00:44)
[2018-03-31] MEDS: Albuterol/Ipratropium NEB.SOL* Albuterol 2.5 MG/Ipratropium 0.5 MG 3 ML INH SCH ×6 (03:37→23:47)
[2018-03-31] MEDS: methylPREDNISolone 125 MG* 2 ML VIAL IV SCH ×3 (04:03→17:54)
[2018-03-31] MEDS: Heparin VIAL(*) 5000 UNITS/ML VIAL (FIVE THOUSAND) SUBCUT SCH ×3 (08:22→20:44)
[2018-03-31] MEDS: Levothyroxine TAB* 100 MCG TAB PO SCH (08:23)
[2018-03-31] MEDS: Tiotropium CAP.INH* CAP.INH/18 MCG (USE ORDER SET !) INH SCH (08:57)
[2018-03-31] MEDS: Famotidine TAB* 20 MG PO SCH (09:22)
[2018-03-31] MEDS: Aspirin EC TAB* 81 MG TAB.EC PO SCH (09:22)
[2018-03-31] MEDS: Cetirizine* 10 MG TAB PO SCH (09:24)
[2018-03-31] MEDS: Losartan TAB* 25 MG PO SCH (09:26)
[2018-03-31] MEDS: Metoprolol Tartrate TAB* 25 MG PO SCH ×2 (09:26→20:44)
[2018-03-31] MEDS: glipiZIDE TAB* 5 MG PO SCH ×2 (09:27→20:44)
[2018-03-31] MEDS: Insulin LISPRO* 1 UNITS UNIT SUBCUT SCH ×4 (09:28→20:44)
--- NOTE | 2018-03-31 09:58 | PN ---
Subjective Date of Service: 03/31/18 Interval History: Pt c/o wheezing still. Not coughing up anything Family History: Unchanged from Admission Social History: Unchanged from Admission Past Medical History: Unchanged from Admission Objective Active Medications: Acetaminophen (Tylenol Tab*) 650 mg PO Q4H PRN PRN Reason: FEVER/PAIN Albuterol (Ventolin 2.5 Mg/3 Ml Neb.Isidra*) 2.5 mg INH Q2H PRN PRN Reason: SOB/WHEEZING Albuterol/Ipratropium (Duoneb (Albuterol 2.5 Mg/Ipratropium 0.5 Mg)) 1 neb INH [id number] AWAKE [facility] Last Admin: 03/31/18 08:27 Dose: 1 neb Aspirin (Aspirin Ec Tab*) 81 mg PO DAILY [facility] Last Admin: 03/31/18 09:22 Dose: 81 mg Cetirizine HCl (Zyrtec*) 10 mg PO DAILY [facility] Last Admin: 03/31/18 09:24 Dose: 10 mg Dextrose (D50w Syringe 50 Ml*) 12.5 gm IV PUSH .FOR FS < 60 - SS PRN PRN Reason: FS < 60 Famotidine (Pepcid Tab*) 20 mg PO DAILY [facility] Last Admin: 03/31/18 09:22 Dose: 20 mg Glipizide (Glucotrol Tab*) 10 mg PO BID [facility] Last Admin: 03/31/18 09:27 Dose: 10 mg Heparin Sodium (Porcine) (Heparin Vial(*)) 5,000 units SUBCUT Q8HR [facility] Last Admin: 03/31/18 08:22 Dose: 5,000 units Azithromycin 500 mg/ Sodium (Chloride) 250 mls @ 250 mls/hr IVPB Q24H [facility] Last Admin: 03/30/18 10:49 Dose: 250 mls/hr Insulin Human Lispro (Humalog*) 0 units SUBCUT FS ACHS ICU [facility]; Protocol Last Admin: 03/31/18 09:28 Dose: 6 unit Levothyroxine Sodium (Synthroid Tab*) 100 mcg PO DAILY@0600 [facility] Last Admin: 03/31/18 08:23 Dose: 100 mcg Losartan Potassium (Cozaar Tab*) 25 mg PO DAILY [facility] Last Admin: 03/31/18 09:26 Dose: 25 mg Methylprednisolone Sodium Succinate (Solu-Medrol 125mg *) 60 mg IV Q8H [facility] Last Admin: 03/31/18 04:03 Dose: 60 mg Metoprolol Tartrate (Lopressor Tab*) 25 mg PO Q12HR [facility] Last Admin: 03/31/18 09:26 Dose: 25 mg Ondansetron HCl (Zofran Inj*) 4 mg IV Q4H PRN PRN Reason: NAUSEA/VOMITING Tiotropium [place] (Spiriva Cap.Inh*) 1 cap INH DAILY [facility] Last Admin: 03/31/18 08:57 Dose: Not Given Vital Signs - 8 hr 03/31/18 03/31/18 03/31/18 02:00 02:01 03:00 Temperature Pulse Rate 89 86 84 Respiratory 15 15 Rate Blood Pressure 108/65 128/76 (mmHg) O2 Sat by Pulse 96 95 97 Oximetry 03/31/18 03/31/18 03/31/18 03:01 03:37 04:00 Temperature Pulse Rate 81 87 88 Respiratory 14 14 21 Rate Blood Pressure (mmHg) O2 Sat by Pulse 97 98 95 Oximetry 03/31/18 03/31/18 03/31/18 05:00 05:01 05:09 Temperature 98.7 F Pulse Rate 81 79 Respiratory 23 17 Rate Blood Pressure 154/75 (mmHg) O2 Sat by Pulse 95 95 Oximetry 03/31/18 03/31/18 03/31/18 06:00 06:01 07:00 Temperature Pulse Rate 86 83 86 Respiratory 21 20 21 Rate Blood Pressure 166/60 (mmHg) O2 Sat by Pulse 96 97 96 Oximetry 03/31/18 03/31/18 03/31/18 07:01 08:00 08:29 Temperature Pulse Rate 81 90 95 Respiratory 17 22 17 Rate Blood Pressure 124/72 (mmHg) O2 Sat by Pulse 97 96 99 Oximetry Oxygen Devices in Use Now: High Flow Heated Nasal Cannula Appearance: 83 yo F in nAD, aAOx3 Eyes: No Scleral Icterus, PERRLA Ears/Nose/Mouth/Throat: NL Teeth, Lips, Gums, Mucous Membranes Moist Neck: NL Appearance and Movements; NL JVP, Trachea Midline Respiratory: Symmetrical Chest Expansion and Respiratory Effort, - - diffuse upper lung wheezes b/l Cardiovascular: NL Sounds; No Murmurs; No JVD, RRR Abdominal: NL Sounds; No Tenderness; No Distention, No Hepatosplenomegaly Lymphatic: No Cervical Adenopathy Extremities: No Clubbing, Cyanosis, - - trace ankle edema b/l Skin: No Rash or Ulcers, No Nodules or Sclerosis Neurological: Alert and Oriented x 3, NL Muscle Strength and Tone Result Diagrams: 03/30/18 06:21 03/30/18 06:21 Additional Lab and Data: Lab Results 03/29/18 03/29/18 03/29/18 Range/Units 07:22 07:22 07:22 WBC 6.6 (3.5-10.8) 10^3/ul RBC 3.82 L (4.00-5.40) 10^6/ul Hgb 12.2 (12.0-16.0) g/dl Hct 36 (35-47) % MCV 95 (80-97) fL MCH 32 H (27-31) pg MCHC 34 (31-36) g/dl RDW 13 (10.5-15) % Plt Count 143 L (150-450) 10^3/ul MPV 8.3 (7.4-10.4) fL Neut % (Auto) 63.9 % Lymph % (Auto) 15.3 % [place] % (Auto) 7.9 % Eos % (Auto) 12.4 % Baso % (Auto) 0.5 % Absolute Neuts (auto) 4.2 (1.5-7.7) 10^3/ul Absolute Lymphs (auto) 1.0 (1.0-4.8) 10^3/ul Absolute Monos (auto) 0.5 (0-0.8) 10^3/ul Absolute Eos (auto) 0.8 H (0-0.6) 10^3/ul Absolute Basos (auto) 0 (0-0.2) 10^3/ul Absolute Nucleated RBC 0 10^3/ul Nucleated RBC % 0 INR (Anticoag Therapy) 0.98 (0.77-1.02) APTT 30.2 (26.0-36.3) seconds VBG pH (7.32-7.43) VBG pCO2 (41-51) mmHg VBG pO2 (35-45) mmHg VBG HCO3 (24-28) mmol/L VBG O2 Saturation (70-80) % VBG Base Excess (0.0-4.0) mmol/L Sodium 137 (135-145) mmol/L Potassium 4.2 (3.5-5.0) mmol/L Chloride 105 (101-111) mmol/L Carbon Dioxide 21 L (22-32) mmol/L Anion Gap 11 (2-11) mmol/L BUN 23 (6-24) mg/dL Creatinine 1.23 H (0.51-0.95) mg/dL Est GFR ( Amer) 50.6 (>60) Est GFR (Non-Af Amer) 41.8 (>60) BUN/Creatinine Ratio 18.7 (8-20) Glucose 242 H (70-100) mg/dL Lactic Acid (0.5-2.0) mmol/L Calcium 9.6 (8.6-10.3) mg/dL Total Bilirubin 1.10 H (0.2-1.0) mg/dL AST 24 (13-39) U/L ALT 16 (7-52) U/L Alkaline Phosphatase 84 (34-104) U/L CK-MB (CK-2) 4.5 (0.6-6.3) ng/mL Troponin I 0.01 (<0.04) ng/mL C-Reactive Protein 2.85 (<8.01) mg/L Total Protein 6.5 (6.4-8.9) g/dL Albumin 3.8 (3.2-5.2) g/dL Globulin 2.7 (2-4) g/dL Albumin/Globulin Ratio 1.4 (1-3) Influenza A (Rapid) (Negative) Influenza B (Rapid) (Negative) 03/29/18 03/29/18 03/29/18 Range/Units 07:22 07:26 08:02 WBC (3.5-10.8) 10^3/ul RBC (4.00-5.40) 10^6/ul Hgb (12.0-16.0) g/dl Hct (35-47) % MCV (80-97) fL MCH (27-31) pg MCHC (31-36) g/dl RDW (10.5-15) % Plt Count (150-450) 10^3/ul MPV (7.4-10.4) fL Neut % (Auto) % Lymph % (Auto) % Randolph % (Auto) % Eos % (Auto) % Baso % (Auto) % Absolute Neuts (auto) (1.5-7.7) 10^3/ul Absolute Lymphs (auto) (1.0-4.8) 10^3/ul Absolute Monos (auto) (0-0.8) 10^3/ul Absolute Eos (auto) (0-0.6) 10^3/ul Absolute Basos (auto) (0-0.2) 10^3/ul Absolute Nucleated RBC 10^3/ul Nucleated RBC % INR (Anticoag Therapy) (0.77-1.02) APTT (26.0-36.3) seconds VBG pH 7.32 (7.32-7.43) VBG pCO2 40 L (41-51) mmHg VBG pO2 51.0 H (35-45) mmHg VBG HCO3 20.5 L (24-28) mmol/L VBG O2 Saturation 85.9 H (70-80) % VBG Base Excess -5.2 L (0.0-4.0) mmol/L Sodium (135-145) mmol/L Potassium (3.5-5.0) mmol/L Chloride (101-111) mmol/L Carbon Dioxide (22-32) mmol/L Anion Gap (2-11) mmol/L BUN (6-24) mg/dL Creatinine (0.51-0.95) mg/dL Est GFR ( Amer) (>60) Est GFR (Non-Af Amer) (>60) BUN/Creatinine Ratio (8-20) Glucose (70-100) mg/dL Lactic Acid 2.6 H* (0.5-2.0) mmol/L Calcium (8.6-10.3) mg/dL Total Bilirubin (0.2-1.0) mg/dL AST (13-39) U/L ALT (7-52) U/L Alkaline Phosphatase (34-104) U/L CK-MB (CK-2) (0.6-6.3) ng/mL Troponin I (<0.04) ng/mL C-Reactive Protein (<8.01) mg/L Total Protein (6.4-8.9) g/dL Albumin (3.2-5.2) g/dL Globulin (2-4) g/dL Albumin/Globulin Ratio (1-3) Influenza A (Rapid) Negative (Negative) Influenza B (Rapid) Negative (Negative) Microbiology and Other Data: Microbiology 03/29/18 21:06 Legionella Urinary Antigen - Final Urine Negative Legionella Antigen Streptococcus pneumoniae Ag Screen - Final Negative S. pneumo Antigen 03/29/18 10:15 Nasal Screen MRSA (PCR) - Final Nasal Mrsa Not Detected 03/29/18 07:10 Influenza Types A,B Antigen - Final Nasal Specimen received for Influenza A/B Molecular testing Assess/Plan/Problems-Billing . Assessment: 83 y.o. female with h/o COPD, DM, HTN, hypothyroidism now admitted with acute hypoxic respirtory failure requiring NIPPV/vapotherm. IV steroids / IV Abx nebulizers ongoing --> patient is delicate and improving slowly. . - Patient Problems (1) Acute hypoxemic respiratory failure Comment: - Secondary to COPD/CHF exacerbation. - Still requiring intermittent vapotherm (PP) - improving slowly - nebs for bronchodilitation (2) Hypothyroidism Comment: - continue op synthroid dose (3) COPD exacerbation Comment: - Reports h/o COPD, but no 02 at home - secondary to bronchitis. - Continue bronchodilators, steroids, and Zithromax. - Pt has nebulizer machine at home. - Will need PFTs / pulmonary consultation as outpatient. (4) Diabetes Comment: - Lispro SSI and glipizide from home (5) DVT prophylaxis Comment: - Lovenox. Status and Disposition: inpatient
[2018-03-31] MEDS: Azithromycin IV(*) 500 MG in NS 0.9% 250 ML* 250 ML IVPB SCH (11:22)
--- NOTE | 2018-03-31 15:47 | PN ---
Progress Note - Progress Note Date of Service: 03/31/18 Note: Progress Note -- Critical Care 24 hour events -on NC 5 L now; sats 90s -cough mild, no sputum; mild scattered wheezing+ -speaking+ -making urine -afebrile Tele: NSR Vitals: Vital Signs Temp 97.8 F 03/31/18 13:00 Pulse 84 03/31/18 14:43 Resp 20 03/31/18 14:43 BP 132/83 03/31/18 13:00 Pulse Ox 98 03/31/18 14:43 Intake & Output 03/30/18 03/31/18 03/31/18 18:59 06:59 18:59 Intake Total 8304 528 8938 Output Total 1800 450 800 Balance 152 310 496 Intake: IV Fluids 552 40 NS (0.9%) 552 40 IVPB 270 260 ABX - AZITHROMYCIN 270 260 Oral 1130 760 996 Output: Urine 1800 450 800 Other: Estimated Void Large # Voids 1 O2/Vent: NC 5 L Infusions: heplock Current Medications: Acetaminophen (Tylenol Tab*) 650 mg PO Q4H PRN PRN Reason: FEVER/PAIN Albuterol (Ventolin 2.5 Mg/3 Ml Neb.Isidra*) 2.5 mg INH Q2H PRN PRN Reason: SOB/WHEEZING Albuterol/Ipratropium (Duoneb (Albuterol 2.5 Mg/Ipratropium 0.5 Mg)) 1 neb INH [id number] AWAKE [facility] Last Admin: 03/31/18 14:41 Dose: 1 neb Aspirin (Aspirin Ec Tab*) 81 mg PO DAILY [facility] Last Admin: 03/31/18 09:22 Dose: 81 mg Azithromycin (Zithromax Tab*) 250 mg PO DAILY [facility] Cetirizine HCl (Zyrtec*) 10 mg PO DAILY [facility] Last Admin: 03/31/18 09:24 Dose: 10 mg Dextrose (D50w Syringe 50 Ml*) 12.5 gm IV PUSH .FOR FS < 60 - SS PRN PRN Reason: FS < 60 Famotidine (Pepcid Tab*) 20 mg PO DAILY [facility] Last Admin: 03/31/18 09:22 Dose: 20 mg Glipizide (Glucotrol Tab*) 10 mg PO BID [facility] Last Admin: 03/31/18 09:27 Dose: 10 mg Heparin Sodium (Porcine) (Heparin Vial(*)) 5,000 units SUBCUT Q8HR [facility] Last Admin: 03/31/18 15:11 Dose: 5,000 units Insulin Human Lispro (Humalog*) 0 units SUBCUT FS ACHS ICU [facility]; Protocol Last Admin: 03/31/18 12:20 Dose: 8 unit Levothyroxine Sodium (Synthroid Tab*) 100 mcg PO DAILY@0600 [facility] Last Admin: 03/31/18 08:23 Dose: 100 mcg Losartan Potassium (Cozaar Tab*) 25 mg PO DAILY [facility] Last Admin: 03/31/18 09:26 Dose: 25 mg Methylprednisolone Sodium Succinate (Solu-Medrol 125mg *) 40 mg IV Q8H [facility] Last Admin: 03/31/18 11:22 Dose: 40 mg Metoprolol Tartrate (Lopressor Tab*) 25 mg PO Q12HR [facility] Last Admin: 03/31/18 09:26 Dose: 25 mg Ondansetron HCl (Zofran Inj*) 4 mg IV Q4H PRN PRN Reason: NAUSEA/VOMITING Tiotropium [place] (Spiriva Cap.Inh*) 1 cap INH DAILY [facility] Last Admin: 03/31/18 08:57 Dose: Not Given Physical Exam: General: awake, alert, no resp distress, no diaphoresis Head: normocephalic, atraumatic HEENT: no pallor, no icterus, moist mucous membranes Neck: soft, supple, no jvd, no stridor CVS:normal rate, regular, no murmur Resp: bilateral air entry, minimal wheezing+, no rhales, no rhonchi, no acc muscle use Abdomen: soft, nontender, nondistended, bowel sounds+ Ext: pulses+, warm, no edema Skin: intact Neuro: awake, alert, orientedx3, moving all extremities Labs: reviewed Imaging: cxr 03/29 - no clear infiltrate/effusion noted cxr 03/31 - clear, no infiltrate Assessment: 83y F w/pmhx of DM, HTN, COPD, hypothyroidism; Patient last admitted 01/2018 for resp distress and suspected COPD exaccerbation, never diagnosed before, did not have smoking history. She was treated with steroids, empiric IV abx and improved and discharged but no followup with pulmonary because she did not go. She returns to the ER 03/29 for increasing dyspnea for 2 weeks. She denies fever/chills/cough, no sick contacts, no diarrhea/abd pain/ chest pain. in ER tmax 99.6, tachycardic 125, RR 40, sat 85% on RA, BP 133/101. Started on NC, then vapotherm, given magnesium, steroids, nebulizers with some improvement. Admitted to ICU, continued wheezing in ICU, called for eval of further respiratory failure and bronchospasm. -acute hypoxic respiratory failure -Acute COPD exaccerbation -LUZ MARINA DM HTN Plan: Neuro- stable. delirium prec. asp prec. CVS- BP stable. cont antihypertensives. no ivf. -empiric abx Resp- hypoxic, improved, on NC now. mild wheezing+. cont steroids, once improved start taper. cont bronchodilators q4h. walking already around floor. -cxr / clear -IV abx azithro PO, total 5 days ID- afebrile. CXR clear of infiltrate. On steroids. Empiric coverage with azithromycin PO. strep/legionella urine ag neg GI- diabetic diet. h2b for proph. asp prec. Renal- mild LUZ MARINA improved. Making urine. Off IVF. LA normal now. Heme- anemia, hg 11-12. stable -plt okay Endo- cont synthroid. Sliding scale coverage, noted to be on high steroids for COPD exacc. Musculsk- pressure ulcer prophylaxis. oob to chair, ambulate Wounds- none Nutrition- diabetic diet DVT prophylaxis: heparin sq, SCDs; d/c heparin if ambualting GI prophylaxis: h2b Central Line: no Arterial Line: no Reynoso Cathetor: no Disposition: improved status, can transfer to tele/medical floor with cont steroids/bronchodilators. Critical Care will sign off, will follow as needed Patient Clinical Status: stable Code Status: full code Castillo Overton MD [employer] Sales Manager (Electronically Signed)
[2018-04-01] MEDS: Albuterol/Ipratropium NEB.SOL* Albuterol 2.5 MG/Ipratropium 0.5 MG 3 ML INH SCH ×4 (02:57→19:13)
[2018-04-01] MEDS: Levothyroxine TAB* 100 MCG TAB PO SCH (05:55)
[2018-04-01] MEDS: Heparin VIAL(*) 5000 UNITS/ML VIAL (FIVE THOUSAND) SUBCUT SCH ×2 (05:55→12:22)
[2018-04-01 06:48] LABS: Hematocrit 32 % (35-47); Hemoglobin 10.6 g/dl (12.0-16.0); Mean Corpuscular HGB Conc 33 g/dl (31-36); Mean Corpuscular Hemoglobin 32 pg (27-31); Mean Corpuscular Volume 96 fL (80-97); Mean Platelet Volume 8.8 fL (7.4-10.4); Platelet Count 126 10^3/ul (150-450); Red Blood Count 3.37 10^6/ul (4.00-5.40); Red Cell Distribution Width 14 % (10.5-15); White Blood Count 7.5 10^3/ul (3.5-10.8)
[2018-04-01 07:05] LABS: BUN/Creatinine Ratio 36.1 (8-20); Calcium 9.3 mg/dL (8.6-10.3); EGFR African American 58.8 (>60); EGFR Non-African American 48.6 (>60); Potassium 4.5 mmol/L (3.5-5.0)
[2018-04-01] MEDS: Tiotropium CAP.INH* CAP.INH/18 MCG (USE ORDER SET !) INH SCH (07:50)
[2018-04-01] MEDS: Insulin LISPRO* 1 UNITS UNIT SUBCUT SCH ×4 (08:07→20:44)
[2018-04-01] MEDS: Famotidine TAB* 20 MG PO SCH (09:06)
[2018-04-01] MEDS: Aspirin EC TAB* 81 MG TAB.EC PO SCH (09:06)
[2018-04-01] MEDS: Metoprolol Tartrate TAB* 25 MG PO SCH ×2 (09:06→20:43)
[2018-04-01] MEDS: glipiZIDE TAB* 5 MG PO SCH ×2 (09:06→20:43)
[2018-04-01] MEDS: Cetirizine* 10 MG TAB PO SCH (09:06)
[2018-04-01] MEDS: Losartan TAB* 25 MG PO SCH (09:06)
[2018-04-01] MEDS: Azithromycin TAB* 250 MG PO SCH (12:21)
--- NOTE | 2018-04-01 12:51 | PN ---
Subjective Date of Service: 04/01/18 Interval History: Pt feels much better. wheezing less On 02 at 2L Family History: Unchanged from Admission Social History: Unchanged from Admission Past Medical History: Unchanged from Admission Objective Active Medications: Acetaminophen (Tylenol Tab*) 650 mg PO Q4H PRN PRN Reason: FEVER/PAIN Albuterol (Ventolin 2.5 Mg/3 Ml Neb.Isidra*) 2.5 mg INH Q2H PRN PRN Reason: SOB/WHEEZING Albuterol/Ipratropium (Duoneb (Albuterol 2.5 Mg/Ipratropium 0.5 Mg)) 1 neb INH [id number] AWAKE [facility] Aspirin (Aspirin Ec Tab*) 81 mg PO DAILY [facility] Last Admin: 04/01/18 09:06 Dose: 81 mg Azithromycin (Zithromax Tab*) 250 mg PO DAILY [facility] Last Admin: 04/01/18 12:21 Dose: 250 mg Cetirizine HCl (Zyrtec*) 10 mg PO DAILY [facility] Last Admin: 04/01/18 09:06 Dose: 10 mg Dextrose (D50w Syringe 50 Ml*) 12.5 gm IV PUSH .FOR FS < 60 - SS PRN PRN Reason: FS < 60 Famotidine (Pepcid Tab*) 20 mg PO DAILY [facility] Last Admin: 04/01/18 09:06 Dose: 20 mg Glipizide (Glucotrol Tab*) 10 mg PO BID [facility] Last Admin: 04/01/18 09:06 Dose: 10 mg Heparin Sodium (Porcine) (Heparin Vial(*)) 5,000 units SUBCUT Q8HR [facility] Last Admin: 04/01/18 12:22 Dose: 5,000 units Insulin Human Lispro (Humalog*) 0 units SUBCUT FS ACHS ICU [facility]; Protocol Last Admin: 04/01/18 12:14 Dose: Not Given Levothyroxine Sodium (Synthroid Tab*) 100 mcg PO DAILY@0600 [facility] Last Admin: 04/01/18 05:55 Dose: 100 mcg Losartan Potassium (Cozaar Tab*) 25 mg PO DAILY [facility] Last Admin: 04/01/18 09:06 Dose: 25 mg Metoprolol Tartrate (Lopressor Tab*) 25 mg PO Q12HR [facility] Last Admin: 04/01/18 09:06 Dose: 25 mg Ondansetron HCl (Zofran Inj*) 4 mg IV Q4H PRN PRN Reason: NAUSEA/VOMITING Prednisone (Deltasone Tab*) 50 mg PO DAILY [facility] Tiotropium [place] (Spiriva Cap.Inh*) 1 cap INH DAILY [facility] Last Admin: 04/01/18 07:50 Dose: Not Given Vital Signs - 8 hr 04/01/18 04/01/18 04/01/18 07:48 07:52 08:00 Temperature 97.2 F Pulse Rate 64 68 Respiratory 18 14 18 Rate Blood Pressure 139/58 (mmHg) O2 Sat by Pulse 98 100 Oximetry Oxygen Devices in Use Now: Nasal Cannula Appearance: 83 yo F in nAD, aAOx3 Eyes: No Scleral Icterus, PERRLA Ears/Nose/Mouth/Throat: NL Teeth, Lips, Gums, Mucous Membranes Moist Neck: NL Appearance and Movements; NL JVP, Trachea Midline Respiratory: Symmetrical Chest Expansion and Respiratory Effort, - - scattered wheezes improving b/l Cardiovascular: NL Sounds; No Murmurs; No JVD, RRR Abdominal: NL Sounds; No Tenderness; No Distention, No Hepatosplenomegaly Lymphatic: No Cervical Adenopathy Extremities: No Clubbing, Cyanosis, - - trace ankle edema b/l Skin: No Rash or Ulcers, No Nodules or Sclerosis Neurological: Alert and Oriented x 3, NL Muscle Strength and Tone Result Diagrams: 04/01/18 06:05 04/01/18 06:05 Additional Lab and Data: Lab Results 03/29/18 03/29/18 03/29/18 Range/Units 07:22 07:22 07:22 WBC 6.6 (3.5-10.8) 10^3/ul RBC 3.82 L (4.00-5.40) 10^6/ul Hgb 12.2 (12.0-16.0) g/dl Hct 36 (35-47) % MCV 95 (80-97) fL MCH 32 H (27-31) pg MCHC 34 (31-36) g/dl RDW 13 (10.5-15) % Plt Count 143 L (150-450) 10^3/ul MPV 8.3 (7.4-10.4) fL Neut % (Auto) 63.9 % Lymph % (Auto) 15.3 % [place] % (Auto) 7.9 % Eos % (Auto) 12.4 % Baso % (Auto) 0.5 % Absolute Neuts (auto) 4.2 (1.5-7.7) 10^3/ul Absolute Lymphs (auto) 1.0 (1.0-4.8) 10^3/ul Absolute Monos (auto) 0.5 (0-0.8) 10^3/ul Absolute Eos (auto) 0.8 H (0-0.6) 10^3/ul Absolute Basos (auto) 0 (0-0.2) 10^3/ul Absolute Nucleated RBC 0 10^3/ul Nucleated RBC % 0 INR (Anticoag Therapy) 0.98 (0.77-1.02) APTT 30.2 (26.0-36.3) seconds VBG pH (7.32-7.43) VBG pCO2 (41-51) mmHg VBG pO2 (35-45) mmHg VBG HCO3 (24-28) mmol/L VBG O2 Saturation (70-80) % VBG Base Excess (0.0-4.0) mmol/L Sodium 137 (135-145) mmol/L Potassium 4.2 (3.5-5.0) mmol/L Chloride 105 (101-111) mmol/L Carbon Dioxide 21 L (22-32) mmol/L Anion Gap 11 (2-11) mmol/L BUN 23 (6-24) mg/dL Creatinine 1.23 H (0.51-0.95) mg/dL Est GFR ( Amer) 50.6 (>60) Est GFR (Non-Af Amer) 41.8 (>60) BUN/Creatinine Ratio 18.7 (8-20) Glucose 242 H (70-100) mg/dL Lactic Acid (0.5-2.0) mmol/L Calcium 9.6 (8.6-10.3) mg/dL Total Bilirubin 1.10 H (0.2-1.0) mg/dL AST 24 (13-39) U/L ALT 16 (7-52) U/L Alkaline Phosphatase 84 (34-104) U/L CK-MB (CK-2) 4.5 (0.6-6.3) ng/mL Troponin I 0.01 (<0.04) ng/mL C-Reactive Protein 2.85 (<8.01) mg/L Total Protein 6.5 (6.4-8.9) g/dL Albumin 3.8 (3.2-5.2) g/dL Globulin 2.7 (2-4) g/dL Albumin/Globulin Ratio 1.4 (1-3) Influenza A (Rapid) (Negative) Influenza B (Rapid) (Negative) 03/29/18 03/29/18 03/29/18 Range/Units 07:22 07:26 08:02 WBC (3.5-10.8) 10^3/ul RBC (4.00-5.40) 10^6/ul Hgb (12.0-16.0) g/dl Hct (35-47) % MCV (80-97) fL MCH (27-31) pg MCHC (31-36) g/dl RDW (10.5-15) % Plt Count (150-450) 10^3/ul MPV (7.4-10.4) fL Neut % (Auto) % Lymph % (Auto) % [place] % (Auto) % Eos % (Auto) % Baso % (Auto) % Absolute Neuts (auto) (1.5-7.7) 10^3/ul Absolute Lymphs (auto) (1.0-4.8) 10^3/ul Absolute Monos (auto) (0-0.8) 10^3/ul Absolute Eos (auto) (0-0.6) 10^3/ul Absolute Basos (auto) (0-0.2) 10^3/ul Absolute Nucleated RBC 10^3/ul Nucleated RBC % INR (Anticoag Therapy) (0.77-1.02) APTT (26.0-36.3) seconds VBG pH 7.32 (7.32-7.43) VBG pCO2 40 L (41-51) mmHg VBG pO2 51.0 H (35-45) mmHg VBG HCO3 20.5 L (24-28) mmol/L VBG O2 Saturation 85.9 H (70-80) % VBG Base Excess -5.2 L (0.0-4.0) mmol/L Sodium (135-145) mmol/L Potassium (3.5-5.0) mmol/L Chloride (101-111) mmol/L Carbon Dioxide (22-32) mmol/L Anion Gap (2-11) mmol/L BUN (6-24) mg/dL Creatinine (0.51-0.95) mg/dL Est GFR ( Amer) (>60) Est GFR (Non-Af Amer) (>60) BUN/Creatinine Ratio (8-20) Glucose (70-100) mg/dL Lactic Acid 2.6 H* (0.5-2.0) mmol/L Calcium (8.6-10.3) mg/dL Total Bilirubin (0.2-1.0) mg/dL AST (13-39) U/L ALT (7-52) U/L Alkaline Phosphatase (34-104) U/L CK-MB (CK-2) (0.6-6.3) ng/mL Troponin I (<0.04) ng/mL C-Reactive Protein (<8.01) mg/L Total Protein (6.4-8.9) g/dL Albumin (3.2-5.2) g/dL Globulin (2-4) g/dL Albumin/Globulin Ratio (1-3) Influenza A (Rapid) Negative (Negative) Influenza B (Rapid) Negative (Negative) Microbiology and Other Data: Microbiology 03/29/18 21:06 Legionella Urinary Antigen - Final Urine Negative Legionella Antigen Streptococcus pneumoniae Ag Screen - Final Negative S. pneumo Antigen 03/29/18 10:15 Nasal Screen MRSA (PCR) - Final Nasal Mrsa Not Detected 03/29/18 07:10 Influenza Types A,B Antigen - Final Nasal Specimen received for Influenza A/B Molecular testing Assess/Plan/Problems-Billing . Assessment: 83 y.o. female with h/o COPD, DM, HTN, hypothyroidism now admitted with acute hypoxic respirtory failure requiring NIPPV/vapotherm. IV steroids / IV Abx nebulizers ongoing --> patient is delicate and improving slowly. . - Patient Problems (1) Acute hypoxemic respiratory failure Comment: - Secondary to COPD/CHF exacerbation. - improving slowly, may be able to go home tomorrow - nebs for bronchodilitation -Cont Prednisone. (2) Hypothyroidism Comment: - continue op synthroid dose (3) COPD exacerbation Comment: - Reports h/o COPD, but no 02 at home - secondary to bronchitis. - Continue bronchodilators, steroids, and Zithromax. - Pt has nebulizer machine at home. - Will need PFTs / pulmonary consultation as outpatient. -likely 02 need at d/c (4) Diabetes Comment: - Lispro SSI and glipizide from home (5) DVT prophylaxis Comment: HSQ Status and Disposition: inpatient
[2018-04-01] MEDS: predniSONE TAB* 50 MG PO SCH (15:15)
[2018-04-02] MEDS: Albuterol/Ipratropium NEB.SOL* Albuterol 2.5 MG/Ipratropium 0.5 MG 3 ML INH SCH ×2 (01:07→07:16)
[2018-04-02] MEDS: Levothyroxine TAB* 100 MCG TAB PO SCH (05:57)
[2018-04-02] MEDS: Tiotropium CAP.INH* CAP.INH/18 MCG (USE ORDER SET !) INH SCH ×2 (07:16→07:19)
[2018-04-02 07:47] VITALS: BP 152/81
[2018-04-02] MEDS: Insulin LISPRO* 1 UNITS UNIT SUBCUT SCH (08:33)
[2018-04-02] MEDS: glipiZIDE TAB* 5 MG PO SCH (08:34)
[2018-04-02] MEDS: Azithromycin TAB* 250 MG PO SCH (08:34)
[2018-04-02] MEDS: Aspirin EC TAB* 81 MG TAB.EC PO SCH (08:34)
[2018-04-02] MEDS: Famotidine TAB* 20 MG PO SCH (08:34)
[2018-04-02] MEDS: Losartan TAB* 25 MG PO SCH (08:34)
[2018-04-02] MEDS: predniSONE TAB* 50 MG PO SCH (08:34)
[2018-04-02] MEDS: Metoprolol Tartrate TAB* 25 MG PO SCH (08:34)
[2018-04-02] MEDS: Cetirizine* 10 MG TAB PO SCH (08:35)
--- NOTE | 2018-04-02 13:01 | DS ---
CC: Dr. Hines; [facility]; Dr. Acosta * DISCHARGE SUMMARY: DATE OF ADMISSION: 03/29/18 DATE OF DISCHARGE: 04/02/18 DISCHARGE DIAGNOSES: 1. Acute hypoxemic respiratory failure required stay in the Intensive Care Unit on Vapotherm due to chronic obstructive pulmonary disease exacerbation. 2. History of chronic obstructive pulmonary disease. 3. History of asthma. 4. Diabetes type 2. 5. Hypertension. 6. Hypothyroidism. MEDICATIONS AT HOME: Include: 1. Albuterol inhaler 2 puffs every 4 hours p.r.n. 2. Albuterol nebulizer one nebulizer every 4 hours p.r.n. 3. Glipizide 10 mg b.i.d. 4. Levothyroxine 100 mcg daily. 5. Claritin 10 mg daily. 6. Losartan 25 mg daily. 7. Glucophage 500 mg b.i.d. 8. Aspirin 81 mg daily. 9. Pepcid 20 mg daily. 10. Advair 100/50 one puff b.i.d. 11. Metoprolol tartrate 25 mg b.i.d. 12. Prednisone taper 40 mg for 1 day then 20 mg for 2 days then 10 mg for 2 days then stop. Additionally, the patient recommended to follow up with the primary care provider in approximately 4 to 7 days. If the patient's primary care provider is unable to see the patient within next week, the patient is to call [facility] with the number provided in discharge paperwork to call for an appointment next week. The patient is also requested to call to Dr. Hines's office for pulmonology followup within the next month. LABORATORY DATA AND STUDIES PERFORMED DURING THE HOSPITAL STAY: Included on 09/10, white blood cell count 7.25, hemoglobin 10.6, hematocrit of 32, and platelets of 126. On 04/01/18, sodium of 138, potassium of 4.5, chloride 111, carbon dioxide 22, BUN 39, creatinine 1.08. The patient's liver function tests were obtained on admission were unremarkable. Lactic acid obtained during the hospital stay peaked at 4.9 on 03/29/18 and then resolved to level 1.8 on 03/31/18. Portable chest x-ray obtained on 03/29/18, impression: No evidence of acute intrathoracic disease. Repeat chest x-ray was obtained on 03/31/18, impression: "Minimal linear atelectasis of the left lung base". Cultures obtained included urine cultures, positive for Enterococcus faecalis of 25,000 to 50,000 colonies, not clinically significant in this patient who was asymptomatic. Urine legionella and Strep pneumo antigens were negative. The patient's influenza testing was negative. HOSPITALIZATION COURSE: Imani Price is an 83-year-old female with asthma and possible chronic obstructive pulmonary disease who uses albuterol inhaler and nebulizer at home only, who presented to the hospital complaining of severe shortness of breath and cough. She was in acute hypoxemic respiratory failure requiring initially Vapotherm for the initial couple of days. She did very well over the course of her hospital stay and graduated to nasal canula for the last 24 hours of her hospital stay and for that to be just discontinued. Currently, the patient ambulated on room air without evidence of the oxygen desaturations. The patient completed the course of azithromycin during her hospital stay. Her microbiology tests were grossly unremarkable. It is presumed that this patient had either bacterial or viral bronchitis that precipitated the chronic obstructive pulmonary disease exacerbation and hypoxemia. At discharge, the patient recommended to follow up with her primary care provider or [facility] if primary care provider appointment is not readily available. The patient also was asked to call to Dr. Hines's office for followup and further pulmonary function test. PHYSICAL EXAM AT TIME OF DISCHARGE: Blood pressure of 152/81, heart rate 73 and regular, respiratory rate 20, oxygen saturation 95% on room air, temperature 97.6. General: The patient is a pleasant 83-year-old female who is in no acute distress, alert, awake, and oriented x3. HEENT: Head: Atraumatic , normocephalic. Pupils are equal, reactive to light and accommodation. Oropharynx is clear. Mucosa moist. Neck: Supple. No JVD. No bruits bilaterally. Cardiovascular: Regular rate and rhythm. No murmur. Respiratory : Wheezes in bilateral upper lung bob. No auscultation of the neck; otherwise, coarse breath sounds in bilateral lower lung bases. Abdomen: Soft, nontender. Bowel sounds are present in all 4 quadrants. Extremities: There is +1 pitting pedal edema. Pulses +2 bilaterally. There is no clubbing or cyanosis. On neuro evaluation, cranial nerves II through XII grossly intact. Motor strength is 5/5 bilaterally. Please note that this is a short summary of patient's hospitalization. Please refer to further medical records for details. TIME SPENT: Approximately 40 minutes was spent on the patient's discharge. [id number]/[facility] #: [id number] LEONID
== END 2018-04-02 11:35 | disposition home or self-care (01) | DRG 189 ==
LOC: ED 06:52 → ICU 08:24 → MED 03-31 18:51
PROVIDERS: ADMIT Internal Medicine; ATTEND Internal Medicine
PROC: 5A09457 Assistance with Respiratory Ventilation, 24-96 Consecutive Hours, Continuous Positive Airway Pressure (ICD-10-PCS; principal; 2018-03-29)
DX: J96.01 Acute respiratory failure with hypoxia (principal); J44.1 Chronic obstructive pulmonary disease with (acute) exacerbation; J44.0 Chronic obstructive pulmonary disease with (acute) lower respiratory infection; I50.30 Unspecified diastolic (congestive) heart failure; J98.11 Atelectasis; N17.9 Acute kidney failure, unspecified; E87.2 Acidosis; I11.0 Hypertensive heart disease with heart failure; D64.9 Anemia, unspecified; E11.9 Type 2 diabetes mellitus without complications; J20.8 Acute bronchitis due to other specified organisms; E03.9 Hypothyroidism, unspecified; Z79.84 Long term (current) use of oral hypoglycemic drugs; Z79.82 Long term (current) use of aspirin; Z79.51 Long term (current) use of inhaled steroids; Z79.899 Other long term (current) drug therapy; Z88.5 Allergy status to narcotic agent; Z82.5 Family history of asthma and other chronic lower respiratory diseases; Z83.3 Family history of diabetes mellitus
CPT/HCPCS: 36415; 71045; 80048; 80053; 81003; 81015; 82553; 82803; 83036; 83605; 84484; 85025; 85027; 85379; 85610; 85730; 86140; 87077; 87086; 87186; 87641; 87899; 93005; 94640; 99285; A9270-GY; J0456; J1100; J1644; J2930; J3105; J3475; J7512

== ENCOUNTER 2018-06-29 08:39 | Emergency (ER) | payer MEDICARE ==
[2018-06-29] MEDS ORDERED: NS 0.9% 1000 ML** 1,000 ML IV ONE (08:43)
--- NOTE | 2018-06-29 08:48 | ED ---
Neurological HPI - HPI Summary HPI Summary: Patient is an 83 y/o female who presents to the ED c/o confusion. Her last known normal was at 6:20 this morning when the son left for work, at this time patient was behaving normally and was able to speak. As per son, the patient called him around 8:10 this morning and told him that she didnt feel well. Son went home from work around 8:25 and found her unable to speak. She was outside mowing the lawn. Patient c/o confusion, nausea, slurred speech, and severe headache. Olive Quintana called at 8:42. PMHx HTN, DM, hypothyroidism. As per medical records, she takes daily ASA. 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 BP while in room: 234/126. Pt is a level 5 caveat due to her AMS. - History of Current Complaint Stated Complaint: POSSIBLE STROKE PER SON Hx Obtained From: Patient, Family/Central Sterilization Technician - Son Hx From Patient Unobtainable Due To: Altered Mental Status Onset/Duration: Sudden Onset, Started hours ago - around 8:10 this morning, Still Present Timing: Constant Current Severity: Severe Neurological Deficit Location: Generalized Headache Location: Diffuse (Right), Diffuse (Left) Pain Intensity: 0 Pain Scale Used: 0-10 Numeric Character: Impaired Speech, Confusion Aggravating: Nothing Alleviating: Nothing Associated Signs and Symptoms: Positive: Headache, Impaired Speech Related Hx: ASA - Additional Pertinent History Primary Care Physician: [id number] - Allergy/Home Medications Allergies/Adverse Reactions: Allergies Allergy/AdvReac Type Severity Reaction Status Date / Time codeine Allergy Unknown Unknown Verified 01/24/18 10:25 Reaction Details PMH/Surg Hx/FS Hx/Imm Hx Endocrine/Hematology History: Reports: Hx Diabetes - TYPE 2- ON ORAL MEDICATION FOR, Hx Thyroid Disease - HYPOTHYROIDISM Cardiovascular History: Reports: Hx Hypertension - ON MEDICATION FOR Respiratory History: Reports: Hx Asthma - ROUTINE INHALERS FOR, Hx Chronic Obstructive Pulmonary Disease (COPD) - unknown GI History: Reports: Hx Gastroesophageal Reflux Disease - TUMS History: Denies: Hx Renal Disease Musculoskeletal History: Reports: Hx Arthritis - HANDS Sensory History: Reports: Hx Cataracts - BILATERAL, Hx Contacts or Glasses - GLASSES-READING Denies: 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 1993- VAGINAL HYSTERECTOMY, OLIV[place]. 1965 LAMINECTOMY, [facility]. TONSILLECTOMY. TUBAL LIGATION. RIGHT BOTTOM BACK TOOTH EXTRACTION, OFFICE. 05/2013-CATARACT BILATERAL Hx Anesthesia Reactions: No Infectious Disease History: Denies: Traveled Outside the [place] in Last 30 Days - Family History Known Family History: Negative: Blood Disorder - Social History Alcohol Use: None Hx Substance Use: No Substance Use Type: Reports: None Hx Tobacco Use: No Smoking Status (MU): Never Smoked Tobacco Review of Systems Positive: Nausea Neurological: Other - confusion Positive: Headache, Slurred Speech All Other Systems Reviewed And Are Negative: No - Comments Additional Review of Systems Comments: ROS limited due to level 5 caveat Physical Exam - Summary Physical Exam Summary: GENERAL: Patient is a well-developed and nourished F who is lying comfortable in the stretcher. Patient is not in any acute respiratory distress. HEAD AND FACE: Normocephalic EYES: EOMI x 2. Pupils unequal but reactive. Right pupil more dilated. EARS: Hearing grossly intact. MOUTH: Oropharynx within normal limits. NECK: Supple, trachea is midline, no adenopathy, no JVD, no carotid bruit. CHEST: Symmetric, no tenderness at palpation LUNGS: Clear to auscultation bilaterally. No wheezing or crackles. CVS: Regular rate and rhythm, S1 and S2 present, no murmurs or gallops appreciated. ABDOMEN: Soft, non-tender. Bowel sounds are normal. No abnormal abdominal pulsations. EXTREMITIES: Full ROM in all major joints, no edema, no cyanosis or clubbing. NEURO: Alert but not oriented. Slurred speech. Minimally responsive. SKIN: Dry and warm GCS: <8 Triage Information Reviewed: Yes Vital Signs On Initial Exam: Initial Vitals Temp Pulse Resp BP Pulse Ox 95.3 F 86 19 234/126 96 06/29/18 08:44 06/29/18 08:44 06/29/18 08:44 06/29/18 08:44 06/29/18 08:44 Vital Signs Reviewed: Yes Completion Of Physical Exam Limited Due To: Level 5 Procedures - Intubation Time of Intubation: 09:00 - etomidate and rocuronium Intubation Method: orotracheal Tube Size (cm): 7.5 Intubation Complications: no complications Diagnostics - Vital Signs Vital Signs Temp Pulse Resp BP Pulse Ox 06/29/18 08:44 95.3 F 86 19 234/126 96 - Laboratory Result Diagrams: 06/29/18 09:00 06/29/18 09:00 Lab Statement: Any lab studies that have been ordered have been reviewed, and results considered in the medical decision making process. - Radiology CXR Radiology Interpretation Completed By: ED Physician Summary of Radiographic Findings: Left pleural effusion. No PNA. Pending official radiology report. - CT Brain CT CT Interpretation Completed By: Radiologist Summary of CT Findings: 1. LARGE AMOUNT OF SUBARACHNOID HEMORRHAGE AND INTRAVENTRICULAR HEMORRHAGE DESCRIBED MOST CONSISTENT WITH A RUPTURED ANEURYSM. 2. SLIGHTLY PROMINENT VENTRICLES CONSISTENT WITH HYDROCEPHALUS VERSUS ATROPHY. ED physician reviewed radiology report. - EKG 9:10 Cardiac Rate: NL - 60 bpm EKG Rhythm: Sinus Rhythm Summary of EKG Findings: Inverted T wave in V1-V3, prolonged QT interval Course/Dx - Course Course Of Treatment: Patient is an 83 y/o female who presents to the ED c/o confusion, nausea, slurred speech, and severe headache. Her last known normal was at 6:20. Olive Quintana called at 8:42. PMHx HTN, DM, hypothyroidism. As per medical records, she takes daily ASA. BP while in room: 234/126. Pt is a level 5 caveat due to her AMS. A physical exam revealed Pupils unequal but reactive. Right pupil more dilated. Alert but not oriented. Slurred speech. Minimally responsive. GCS of <8. NIH not done because patient is not responsive. Intubated patient with 7.5 orotracheal tube with Etomidate and Rocuronium. Brain CT revealed 1. LARGE AMOUNT OF SUBARACHNOID HEMORRHAGE AND INTRAVENTRICULAR HEMORRHAGE DESCRIBED MOST CONSISTENT WITH A RUPTURED ANEURYSM. 2. SLIGHTLY PROMINENT VENTRICLES CONSISTENT WITH HYDROCEPHALUS VERSUS ATROPHY. EKG revealed inverted T waves in V1-V3, prolonged QT interval. A CXR revealed left pleural effusion. Final dx of subarachnoid hemorrhage. Patient is admitted to the neuro ICU at [facility] to Dr. Gray. Consults from Dr. Davis and Dr. Gongora. Dr. Gongora requests DDAVP and Mannitol. Son is agreeable with this plan. - Diagnoses Provider Diagnoses: Subarachnoid hemorrhage During the Visit The Following Alert/Code Occurred: Olive Quintana - Called at 8:42 - Physician Notifications Discussed Care Of Patient With: Surya Davis Time Discussed With Above Provider: 08:53 Instructed by Provider To: Other - Dr. Davis is in the room. He requests a consult from Dr. Gongora and possible transfer. At 9:00 Dr. Gongora said he is on the way. At 9:06 Dr. Hoang said he believes it is a ruptured aneurysm. At 9:07 attempted to transfer the patient via flying, however they are currently not transporting via air. At 9:10 Dr. Gray accepts patient to the neuro ICU at [facility], and requests fluids. At 9:13 Dr. Gongora is in the room. At 9:38 Dr. Gongora requests DDAVP and Mannitol. - Critical Care Time Critical Care Time: 30-74 min Discharge - Sign-Out/Discharge Documenting (check all that apply): Patient Departure - Transfer Patient Received Moderate/Deep Sedation with Procedure: Yes - Discharge Plan Condition: Stable Disposition: TRANS HIGHER LVL OF CARE FAC Referrals: Radha Ramos MD [Primary Care Provider] - - Billing Disposition and Condition Condition: STABLE Disposition: Trans Higher Lvl of Care Fac - Attestation Statements Document Initiated by Scribe: Yes Documenting Scribe: Lili Wu Provider For Whom Scribe is Documenting (Include Credential): Reinaldo Lopez MD Scribe Attestation: Lili Sawyer, scribed for Reinaldo Lopez MD on 06/29/18 at 0939. Scribe Documentation Reviewed: Yes Provider Attestation: The documentation as recorded by the Lili vallecillo accurately reflects the service I personally performed and the decisions made by me, Reinaldo Lopez MD Status of Scribe Document: Viewed
[2018-06-29] MEDS ORDERED: Labetalol IV* 5 MG/ML 20 ML VIAL IV PUSH ONE (08:52)
[2018-06-29] MEDS ORDERED: Labetalol IV* 5 MG/ML 20 ML VIAL ONE (08:53)
[2018-06-29] MEDS ORDERED: levETIRAcetam 1000MG IVPREMIX* 1,000 MG/100 ML BAG IVPB ONE (08:54)
[2018-06-29] MEDS ORDERED: Succinylcholine* 20 MG/ML 10 ML VIAL ONE (08:58)
[2018-06-29 09:09] LABS: ABS Basophils 0.1 10^3/ul (0-0.2); ABS Lymphocytes 3.2 10^3/ul (1.0-4.8); ABS Neutrophils 5.9 10^3/ul (1.5-7.7); Eosinophil % 8.7 %; Hematocrit 38 % (35-47); Hemoglobin 12.7 g/dL (12.0-16.0); Lymphocyte % 28.4 %; Mean Corpuscular HGB Conc 33 g/dL (31-36); Mean Corpuscular Hemoglobin 31 pg (27-31); Mean Corpuscular Volume 93 fL (80-97); Mean Platelet Volume 9.4 fL (7.4-10.4); Platelet Count 179 10^3/uL (150-450); Red Blood Count 4.08 10^6 /uL (3.70-4.87); Red Cell Distribution Width 13 % (10.5-15); White Blood Count 11.1 10^3/uL (3.5-10.8)
[2018-06-29] MEDS ORDERED: Propofol* 100 ML ONE (09:12)
[2018-06-29] MEDS ORDERED: Dexamethasone IV* 4 MG/ML 5 ML VIAL (20 MG) ONE (09:12)
[2018-06-29] MEDS ORDERED: niMODipine CAP* 30 MG PO ONE (09:13)
[2018-06-29 09:17] LABS: Activated Partial Thrombo Time 29.3 seconds (26.0-36.3); INR 1.03 (0.82-1.09)
[2018-06-29] MEDS ORDERED: niCARdipine 0.1MG/ML IVPREMIX* 20 MG/200 ML BAG IV ONE (09:17)
[2018-06-29] MEDS ORDERED: Dexamethasone IV* 4 MG/ML 1 ML (4 MG) IV SLOW PU ONE (09:20)
[2018-06-29 09:25] LABS: Albumin 3.9 g/dL (3.2-5.2); Albumin/Globulin Ratio 1.2 (1-3); Calcium 9.9 mg/dL (8.6-10.3); Globulin 3.3 g/dL (2-4); Potassium 3.7 mmol/L (3.5-5.0); Total Protein 7.2 g/dL (6.4-8.9)
[2018-06-29] MEDS: Dexamethasone IV* 4 MG/ML 1 ML (4 MG) IV SLOW PU ONE ×2 (09:25→09:26)
[2018-06-29 09:26] LABS: Troponin I 0.02 ng/mL (<0.04)
[2018-06-29] MEDS ORDERED: NS 0.9% 1000 ML** 1,000 ML IV SCH (09:30)
[2018-06-29] MEDS ORDERED: Mannitol 25% (12.5 GM) 50 ML* 12.5 GM/50 ML VIAL IV ONE (09:33)
[2018-06-29] MEDS ORDERED: Desmopressin Acetate* 4 MCG/ML 10 ML VIAL IVPB ONE (09:34)
[2018-06-29] MEDS ORDERED: MANNITOL IV ONE (09:45)
[2018-06-29] MEDS ORDERED: Propofol* 100 ML IV SCH (10:00)
[2018-06-29] MEDS ORDERED: niCARdipine 0.1MG/ML IVPREMIX* 20 MG/200 ML BAG IV SCH (10:00)
[2018-06-29 10:14] LABS: Urine Appearance Clear; Urine Bacteria Absent (Absent); Urine Bilirubin Negative (Negative); Urine Blood Negative (Negative); Urine Color Yellow; Urine Glucose 3+(>=500 mg/dL) (Negative); Urine Ketones Trace (Negative); Urine Nitrite Negative (Negative); Urine Protein 1+(30 mg/dL) (Negative); Urine Red Blood Cell Absent (Absent); Urine Specific Gravity 1.009 (1.010-1.030); Urine Urobilinogen Negative (Negative); Urine White Blood Cell Absent (Absent)
[2018-06-29 10:22] VITALS: BP 90/47
[2018-06-29] MEDS ORDERED: NS 0.9% IVPB ONE (11:00)
[2018-06-29] MEDS ORDERED: DESMOPRESSIN ACETATE IVPB ONE (11:00)
--- NOTE | 2018-06-29 15:49 | CONS ---
CONSULTATION REPORT: DATE OF CONSULT: 06/29/18 PATIENT OF: Dr. Lopez. HISTORY OF PRESENT ILLNESS: This is an 83-year-old woman I was asked to evaluate for altered mental status and confusion. She was well roughly at 6:20 this morning. She was going out to mow the lawn when her son left work. At about 8:10, the son received a call from [place] and was told that she did not feel well and also her speech sounded off to him over the phone. He came home at 8:25, she was unable to speak and had some possible weakness on the left arm. She had some confusion nausea, slurred speech and severe headache and she was brought to the emergency room at 8:39. The patient takes daily aspirin, the son gave her an aspirin prior to admission. Initial blood pressure was 234/126 and I saw her initially at 8:50 as she was coming back from CT scan. She has had no prior strokes. She has a has a history of COPD, type 2 diabetes, hypertension, hypothyroidism and she takes Tums for GERD. She has had a history of cataract bilaterally. She is status post , vaginal hysterectomy, laminectomy, tonsillectomy, tubal ligation, cataract surgery bilaterally. REVIEW OF SYSTEMS: Through son was negative other than in the HPI. PHYSICAL EXAM: The patient's temperature 95.3, pulse 88, respirations 22, blood pressure 213/114. As she came back from CT scan, she had labored breathing and began to have arm flexion. She was intubated at that point and placed on propofol. She had her right eye deviation down with a 2.5 mm pupil which was reactive, her left eye was straight ahead with reactive 2 mm pupil. Corneals were intact and then she was put on propofol and lost the exam. She was not speaking at the time I saw her immediately before she was intubated. She was not following commands at that point either. Chest clear. Cardiovascular: Regular rate and rhythm. Abdomen is soft. I read the CT scan as she came back, which showed a large subarachnoid hemorrhage with intraventricular hemorrhage and with signs of probable hydrocephalus. It is concerned that this could be a ruptured aneurysm. LABS: At the time include white count of 11.1, CBC is otherwise unremarkable. Normal INR and PTT. CMP showed an anion gap 13, bicarb of 16, creatinine 1.2, glucose of 246, lactic acid 4.8. LDL was 96. As I was seeing her as she came back from CAT scan, I immediately called the neurosurgeon as well as contacting the transfer center feeling that the neurosurgeon may decide to transfer her out. I spoke to the OR nurse and confirmed that Dr. Gongora wanted her to be transferred and I asked him to stop by to consider whether anything needed to be done acutely to treat the hydrocephalus on terms of ventriculostomy and he did come down. We put the patient on propofol, put the head of the bed up, gave her steroids, Keppra, mannitol. Blood pressure was treated as per the chart. The arrangements were made with [facility] since helicopters were not flying to transfer by and ambulance arrived within roughly an hour of initial presentation. We discussed with her son with Dr. Gongora' presence and he later discussed with the son the gravity of the situation and that was a distinct outcome from the severity of disease and that the diagnosis was large subarachnoid hemorrhage, complicated by probable hydrocephalus and the subarachnoid may be due to ruptured aneurysm Thank you for sharing her case. [id number]/[facility] #: [id number] LEONID
--- NOTE | 2018-06-29 18:19 | CONS ---
CONSULTATION REPORT: DATE OF CONSULT: 06/29/18 - EMERGENCY DEPT HISTORY OF PRESENT ILLNESS: The patient is a very pleasant 83-year-old female who presented to the emergency room because of altered mental status. I was requested to see the patient by Dr. Lopez and Dr. Davis in the emergency room because of CT scan findings consistent with a dense subarachnoid hemorrhage with ventriculomegaly. The patient was in her usual state of health this morning and she was living independently. She called her son approximately at 8 :10 this morning and reported that she did not feel well. The patient's son came to see the patient and found her to have significant confusion. He felt that the patient had a stroke and gave a dose of aspirin. The patient was brought to the emergency room and was found to be confused with minimal response. She had a CT scan of the brain revealing the above findings and upon return from the CT, she was intubated for airway protection. I was called to evaluate the patient while being in the operating room, scrubbed. The patient was accepted for transfer in [facility]. The patient was seen in the emergency room with Dr. Davis and discussed in extent with the patient's son. PAST MEDICAL HISTORY: Hypertension, diabetes, hypothyroidism, asthma, COPD, GERD, arthritis, bilateral cataracts. PAST SURGICAL HISTORY: , vaginal hysterectomy, laminectomy, tonsillectomy, tubal ligation, tooth extraction, bilateral cataract surgery. MEDICATIONS: The patient is on several medications including aspirin as the patient's son reported. ALLERGIES: CODEINE. FAMILY HISTORY: Noncontributory. SOCIAL HISTORY: Tobacco negative. Alcohol negative. Recreational use negative. PHYSICAL EXAM: The patient is intubated, sedated, just received etomidate and succinylcholine for intubation. She does not open her eyes to pain. Her pupils are 2 mm on the left and 3 mm on the right, sluggish, reactive. She extends to pain with the right upper extremity, withdraws with both lower extremities. No motor on the left upper extremity. The patient does not grimace to pain. Deep tendon reflexes +1 bilaterally. No clonus, no Babinski. Leo is negative. The patient has minimal corneal reflex, but does have gag and cough reflexes present. DIAGNOSTIC STUDIES/LAB DATA: The patient had the CT scan of the brain revealing dense subarachnoid hemorrhage in the basal cisterns and both Sylvian fissures with some ventriculomegaly. There is a preservation of the sulci in the convexity. Basal cisterns seem to be opened with significant amount of blood. The patient's hematocrit was 38, platelet count 179. INR 1.03. 138, creatinine 1.20. ASSESSMENT: The patient is a very pleasant 83-year-old female with significant findings consistent with subarachnoid hemorrhage. PLAN: The patient at this point has significant findings consistent with diffuse subarachnoid hemorrhage, possible aneurysmal in origin, left ventriculomegaly. It is not clear if it is related to atrophy or hydrocephalus. We discussed with the patient's son in extent regarding the patient's condition and the potentially poor prognosis with or without interventions. We discussed about possibility of placing an extraventricular device and explained risks and benefits of the procedure to the son. Discussed also with accepting physician, Dr. Burch, in [facility]. We discussed the possibility of placing an EVD here and transferring the patient after that. The patient was on aspirin and DDAVP was recommended prior to placing the EVD. Discussed in extent with patient's son as well as emergency room. We will starting with DDAVP and consider placement of ventriculostomy if time permits, if the patient's transfer is ready given the proximity of the [facility] as well as the possibility of change in the transmural pressure and early re-rupture of the aneurysm and after discussion with Dr. Burch, the patient may be transferred with IV mannitol and Lasix, in order not to delay her care. Plan was explained in detail to the patient's son, who is agreeable with the plan and understands the risks and benefits of procedures such as extraventricular device placement, angiography and further interventions status post aneurysm securing. The patient's son reports that according to the patient, she will not like heroic measurements at her age, but he has not made his own decisions finalized yet. Thank you for allowing us to participate in the care of this patient. Please do not hesitate to contact our office in case you have any further questions or concerns regarding the care of this patient. [id number]/[facility] #: [id number] LEONID
== END 2018-06-29 10:48 | disposition short-term general hospital (02) ==
LOC: ED 08:39
DX: I60.9 Nontraumatic subarachnoid hemorrhage, unspecified (principal); I10 Essential (primary) hypertension; E11.9 Type 2 diabetes mellitus without complications; E03.9 Hypothyroidism, unspecified; Z79.84 Long term (current) use of oral hypoglycemic drugs; Z88.5 Allergy status to narcotic agent
CPT/HCPCS: 36415; 70450; 71045; 80053; 80061; 81003; 81015; 83605; 84484; 85025; 85610; 85730; 86850; 86900; 86901; 93005; 96365; 96366; 96375; 99285; A9270-GY; J0330; J1100; J1953; J2597; J2704